=== PATIENT | male | born 2000 | race Caucasian/White ===

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

== ENCOUNTER 2023-04-11 15:47 | Inpatient (IN) | payer OTHER, SELFPAY ==
[2023-04-11 15:58] VITALS: BP 163/98; PULSE 90; RESP 18; TEMP 36.4; O2SAT 96; BMI 19.0
[2023-04-11 16:36] LABS: MANUAL DIFF FLAG NO
[2023-04-11 16:38] LABS: Basophils Absolute Auto 0.1 X10*3/uL (0.0-0.2); Basophils Percent Auto 1.1 % (0-2); Eosinophils Percent Auto 0.5 % (0-4); Hematocrit 50.1 % (42.0-52.0); Hemoglobin 17.7 g/dl (14.0-18.0); Imm Gran Abs Auto 0.02 X10*3/uL (0.00-0.03); Imm Gran Pct Auto 0.3 % (0.0-0.4); Lymphocytes Absolute Auto 1.5 X10*3/uL (1.2-4.9); Lymphocytes Percent Auto 22.9 % (20-40); Mean Corpuscular HGB Conc 35.3 g/dl (31.0-36.0); Mean Corpuscular Hemoglobin 31.7 pg (27.0-33.0); Mean Corpuscular Volume 89.6 fL (80.0-98.0); Mean Platelet Volume 10.5 fL (9.4-12.4); Monocytes Absolute Auto 0.7 X10*3/uL (0.1-1.2); Monocytes Percent Auto 10.6 % (2-11); Neutrophils Absolute Auto 4.3 x10*3/uL (2.0-8.3); Neutrophils Percent Auto 64.6 % (45-73); Platelet Count 251 X10*3/uL (160-400); Red Blood Count 5.59 X10*6/uL (4.60-5.80); Red Cell Distribution Width 11.9 % (11.0-16.0); White Blood Count 6.6 X10*3/uL (4.8-10.8)
[2023-04-11 16:39] LABS: Appearance Urine Cloudy; Color Urine Dark Yellow; Glucose Urine UA Negative (Negative); Leukocyte Esterase Urine Trace (Negative); Nitrite Urine Negative (Negative); PH 6.5 (5.0-9.0); Specific Gravity - Urine >= 1.030 (1.005-1.025); UMIC TRIGGER UACC YES; Urine Blood Negative (Negative); Urine Ketones >=160 mg/dL (Negative); Urine Protein 100 (2+) mg/dL (Neg-Trace)
[2023-04-11 16:45] LABS: Amphetamine Screen Urine Not Detected (Not Detect); Barbiturates, Urine Not Detected (Not Detect); Benzodiazepines Screen Urine Not Detected (Not Detect); Cannabinoid Screen Urine POSITIVE (Not Detect); Cocaine Screen Urine Not Detected (Not Detect); Fentanyl, urine Not Detected (Not Detect); Opiate Screen Urine Not Detected (Not Detect); Phencyclidine Screen Urine Not Detected (Not Detect)
--- NOTE | 2023-04-11 16:47 | ED.GENADULT ---
HPI - General Adult General Chief complaint: Psychiatric Symptoms Stated complaint: SECT. 12 Time Seen by Provider: 04/11/23 16:07 Source: patient, RN notes reviewed and old records reviewed Mode of arrival: EMS Limitations: no limitations History of Present Illness HPI narrative: 23-year-old male presents for evaluation paranoid behavior. Patient was due to be section [address] Apparently he was acting strange they with paranoid behavior and yarsanism preoccupation which is atypical for him He was therefore placed on a Section 12 instead and brought to the ER He reports that several years ago he was taking medications for either bipolar disorder or schizoaffective disorder but he does not know which He states that he has not been on these medications for least a year He has no somatic complaints at this time Related Data Home Medications Medication Instructions Recorded Confirmed No Known Home Meds 04/11/23 04/11/23 Allergies Allergy/AdvReac Type Severity Reaction Status Date / Time Pork/Porcine Containing AdvReac Nausea Verified 04/11/23 17:52 Products Review of Systems Constitutional: Constitutional: Denies chills and Denies fever(s) Eyes: Eyes: Denies blurry vision Cardiovascular: Cardiovascular: Denies chest pain and Denies dyspnea Respiratory: Respiratory: Denies cough and Denies dyspnea Gastrointestinal: Gastrointestinal: Denies abdominal pain, Denies nausea and Denies vomiting Musculoskeletal: Musculoskeletal: Denies back pain Psychiatric: Psychiatric: Reports paranoia, Denies homicidal ideation and Denies suicidal ideation Comments: Episcopal preoccupation PMFSH Past Medical History Medical History No known health problems Social History Social History Advance Directives: No Advance Directives Information Provided: No Healthcare Proxy: No Guardian: No Physical Exam ED Vital Signs: Vital Signs - 24 hr 04/11/23 15:58 04/11/23 17:07 Temperature 97.6 F Pulse Rate 90 72 Respiratory Rate 18 16 Blood Pressure 163/98 H 124/86 Pulse Oximetry 96 97 Oxygen Delivery Method Room Air Room Air BMI result Body Mass Index 19.0 Const General: healthy appearing, comfortable, no acute distress, alert and awake Nutritional Appearance: well nourished Orientation/consciousness: patient oriented x3 HENMT Head: Yes normocephalic and Yes atraumatic Throat: Yes posterior oropharynx normal Eyes Eyelids: Yes eyelids normal Conjunctivae: conjunctivae normal Sclerae: sclerae normal Corneas: corneas normal Pupils: Equal, round and reactive pupils present EOM: EOMs intact bilaterally Neck Neck: Yes full ROM Resp Effort & Inspection: normal respiratory effort, able to speak in complete sentences and not labored GI Inspection: No distended Palpation (GI): Soft to palpation, not firm, nontender, no guarding and not rigid Skin General skin exam: elasticity normal Neuro General: patient oriented x3 Cranial nerves: Yes Equal, round and reactive pupils present and Yes Bilaterally intact EOM present Cognition (Neuro): normal cognition Extrem Other: Moving all extremities well without any obvious deformities Psych Appearance: grossly normal Mental Status: mental status grossly normal Speech and movement: Slowed movement present (Neuro) Affect: Blunted affect present Attitude: cooperative Thought process: Normal thought process present Insight: Fair insight present (Psych) Course Reevaluation(s) Reevaluation #1: Patient's workup reviewed, he is medically cleared for care team evaluation Time: 17:04 Reevaluation #2: Patient will be a bed search for inpatient psychiatric care Time: 20:13 Medical Decision Making Medical Decision Making [facility] Narrative: 23-year-old male presents for evaluation of paranoid delusions while at the local courts. He was Section 12 due to this. Will require a care team evaluation after medical clearance. He has no somatic complaints. Basic labs and UA are pending. It sounds baseline history the patient has untreated psychiatric illness. Differential Diagnosis Differential Diagnoses: The differential diagnosis associated with the presentation includes Schizophrenia Medication noncompliance Bipolar disorder Paranoia Delusion Lab Data [facility] Lab Attestation statement: I reviewed the patient's lab results. No leukocytosis or anemia. Normal platelet count. Patient's sodium is just above normal at 146, this can be treated by drinking water. No other intervention necessary. No other electrolyte abnormalities 04/11/23 16:31 04/11/23 16:31 Labs: Lab Results 04/11/23 Range/Units 16:31 WBC 6.6 (4.8-10.8) X10*3/uL RBC 5.59 (4.60-5.80) X10*6/uL Hgb 17.7 (14.0-18.0) g/dl Hct 50.1 (42.0-52.0) % MCV 89.6 (80.0-98.0) fL MCH 31.7 (27.0-33.0) pg MCHC 35.3 (31.0-36.0) g/dl RDW 11.9 (11.0-16.0) % Plt Count 251 (160-400) X10*3/uL MPV 10.5 (9.4-12.4) fL Immature Gran % (Auto) 0.3 (0.0-0.4) % Neut % (Auto) 64.6 (45-73) % Lymph % (Auto) 22.9 (20-40) % [place] % (Auto) 10.6 (2-11) % Eos % (Auto) 0.5 (0-4) % Baso % (Auto) 1.1 (0-2) % Lymph # (Auto) 1.5 (1.2-4.9) X10*3/uL [place] # (Auto) 0.7 (0.1-1.2) X10*3/uL Eos # (Auto) 0.0 (0.0-0.4) X10*3/uL Baso # (Auto) 0.1 (0.0-0.2) X10*3/uL Abs Immat Gran (auto) 0.02 (0.00-0.03) X10*3/uL Absolute Neuts (auto) 4.3 (2.0-8.3) x10*3/uL Absolute Nucleated RBC 0.000 (0.0-0.012) X10*3/uL Nucleated RBC % (auto) 0.0 (0.0-0.2) /100WBC Sodium 146 H (135-145) mmol/L Potassium 3.7 (3.3-5.1) mmol/L Chloride 104 (96-108) mmol/L Carbon Dioxide 28 (22-29) mmol/L Anion Gap 18 (12-20) BUN 9 (9-16) mg/dL Creatinine 0.78 (0.5-1.4) mg/dL Estim Creat Clear Calc 119.1 Estimated GFR > 60 Random Glucose 110 (60-115) mg/dL Calcium 10.5 H (8.4-10.2) mg/dL Total Bilirubin 0.9 (0.0-1.0) mg/dL AST 37 (5-37) U/L ALT 18 (0-40) U/L Alkaline Phosphatase 92 (39-117) U/L Total Protein 8.7 H (6.5-8.0) g/dL Albumin 5.2 H (3.5-5.0) g/dL Urine Color Dark Yellow Urine Appearance Cloudy Urine pH 6.5 (5.0-9.0) Ur Specific [place] >= 1.030 H (1.005-1.025) Urine Protein 100 (2+) H (Neg-Trace) mg/dL Urine Glucose (UA) Negative (Negative) mg/dL Urine Ketones >=160 (Negative) mg/dL Urine Blood Negative (Negative) Urine Nitrite Negative (Negative) Ur Leukocyte Esterase Trace H (Negative) Urine RBC 3-5 H (0-2) /HPF Urine WBC 0-5 (0-5) /HPF Ur Squamous Epith Cells 0-2 (0-2) /HPF Urine Bacteria None Seen (None Seen) Hyaline Casts 0-2 (0-2) /LPF Salicylates < 5.0 L (15-30) mg/dL Urine Opiates Screen Not Detected (Not Detect) Urine Fentanyl Screen Not Detected (Not Detect) Acetaminophen < 17 (<30) mcg/mL Ur Barbiturates Screen Not Detected (Not Detect) Ur Phencyclidine Scrn Not Detected (Not Detect) Ur Amphetamines Screen Not Detected (Not Detect) U Benzodiazepines Scrn Not Detected (Not Detect) Urine Cocaine Screen Not Detected (Not Detect) U Marijuana (THC) Screen POSITIVE H (Not Detect) Ethyl Alcohol < 10 mg/dL Discharge Plan Discharge Clinical Impression: Acute paranoia Patient Disposition: Still a Patient Prescriptions: No Action No Known Home Meds Interventions: Diablo-Suicide Risk Severity Scale Last Done: 04/11/23 18:39
[2023-04-11 16:52] LABS: Bacteria Urine None Seen (None Seen); Hyaline Casts Urine 0-2 /LPF (0-2); Squamous Epithelial Cell Urine 0-2 /HPF (0-2); WBC Urine 0-5 /HPF (0-5)
[2023-04-11 16:54] LABS: Alanine Aminotransferase 18 U/L (0-40); Albumin Level 5.2 g/dL (3.5-5.0); Alkaline Phosphatase 92 U/L (39-117); Anion Gap 18 (12-20); Aspartate Amino Transferase 37 U/L (5-37); Bilirubin Total 0.9 mg/dL (0.0-1.0); Blood Urea Nitrogen 9 mg/dL (9-16); Calcium 10.5 mg/dL (8.4-10.2); Carbon Dioxide 28 mmol/L (22-29); Chloride 104 mmol/L (96-108); Creatinine Clr Calc Pharmacy 119.1; Estimated Glomerular Filt Rate > 60; Ethanol < 10 mg/dL; Glucose Random 110 mg/dL (60-115); Potassium 3.7 mmol/L (3.3-5.1); Sodium 146 mmol/L (135-145); Total Protein 8.7 g/dL (6.5-8.0)
[2023-04-11 16:56] LABS: Acetaminophen LAB < 17 mcg/mL (<30); Salicylate < 5.0 mg/dL (15-30)
[2023-04-11 17:07] VITALS: BP 124/86; PULSE 72; RESP 16; O2SAT 97
--- OUTSIDE RECORDS SUMMARY | 2023-04-11 17:38 | XMS_ITS | Continuity of Care Document ---
Author Name Unknown Organization [facility] ter Address [address] [place] [id number] Care Team Providers Care Ppap Coordinator Name Role Phone Patty Serrano Primary Care Physician Encounter [facility] [place] Date(s): 07/25/19 - 07/25/[address] [id number]- [facility] Discharge Disposition: A-D/C Home Attending Physician: Bladimir Dang MD Admitting Physician: Bladimir Dang MD Referring Physician: Not on Staff, Referring MD Allergies, Adverse Reactions, Alerts Substance Reaction Severity Status NKA Active Medications albuterol 0.083% inhalation solution 3 mL, Inhalation, Every 6 hours, PRN wheezing, # 25 each, 1 Refills Start Date: 02/19/09 Stop Date: 03/21/09 Status: Ordered albuterol 90 mcg/inh inhalation aerosol with adapter 2 puffs, Inhalation, Every 4 hours, # 1 bottle, 1 Refills Start Date: 02/19/09 Stop Date: 03/21/09 Status: Ordered Orapred sodium phosphate 15 mg/5 ml oral liquid 10 mL = 30 mg, By Mouth, Daily, # 40 mL, 0 Refills Start Date: 02/19/09 Stop Date: 02/23/09 Status: Ordered Tamiflu 12 mg/ml oral powder for reconstitution 5 mL = 60 mg, By Mouth, Daily, # 20 mL, 0 Refills Start Date: 02/19/09 Stop Date: 02/23/09 Status: Ordered Vital Signs Most recent to oldest [Reference Range]: 1 2 Height 175 cm (07/25/19 8:58 PM) 175 cm (07/25/19 7:22 PM) Weight 68 kg (07/25/19 8:58 PM) 68 kg (07/25/19 7:22 PM) Oxygen Saturation [94-100 %] 100 % (07/25/19 8:58 PM) 99 % (07/25/19 7:22 PM) Pulse Rate [55-90 bpm] 96 bpm *H* (07/25/19 8:58 PM) 72 bpm (07/25/19 7:22 PM) Body Mass Index [18.5-24.99] 22.2 (07/25/19 8:58 PM) Blood Pressure [71-110/30-71 mm Hg] 138/ 89mm Hg *H* (07/25/19 8:58 PM) 129/70mm Hg *H* (07/25/19 7:22 PM) Respiratory Rate [16-30 br/min] 20 br/mi n (07/25/19 8:58 PM) 18 br/min (07/25/19 7:22 PM) Temperature [96.8-100.4 DegF] 98.4 DegF (07/25/19 7:22 PM) Mode of Delivery (Oxygen) Room air (07/25/19 8:58 PM) Room air (07/25/19 7:22 PM) Blood pressure sites Arm, left (07/25/19 8:58 PM) Arm, left (07/25/19 7:22 PM) Temperature Route Oral (07/25/19 7:22 PM) Dry Weight 68 kg (07/25/19 8:58 PM) 68 kg (07/25/19 7:22 PM)
--- NOTE | 2023-04-11 18:40 | PC.NURSE ---
Satya was BIBA after mother took him to court seeking a section 35. Court determined he was paranoid and religiously preoccupied and sent him to the hospital on a section 12. Satya was calm and cooperative and changed over without incident. Very guarded affect and he seems preoccupied when talking to staff. Appetite fair. No complaints of pain or discomfort at this time. UTOX positive for Marijuana. Satya denies alcohol use. Staff will continue to monitor.
[2023-04-12 06:36] VITALS: BP 125/73; PULSE 92; RESP 16; O2SAT 99
[2023-04-12 08:06] LABS: COVID-19 Test Negative (Negative); IDNOW Serial# BCCEAD1C
[2023-04-12 09:37] VITALS: BP 138/94; PULSE 127; RESP 16; TEMP 36.9; O2SAT 99
--- NOTE | 2023-04-12 11:41 | PHA.MEDREC ---
Pharmacy Consult ? Medication Reconciliation Pharmacy has completed the medication reconciliation. No known meds per nursing
[2023-04-12 17:19] VITALS: BP 121/84; PULSE 112; RESP 18; O2SAT 100
--- NOTE | 2023-04-12 17:40 | PC.NURSE ---
mother called checking on patient status, asked if client was eating, how hes doing, t/w informed mother of plan for client to head to inpatient unit today
[2023-04-12] MEDS: LORazepam 0.5 MG TABLET PO (18:26)
[2023-04-12 21:10] VITALS: BP 125/83; PULSE 96; RESP 18; TEMP 37; O2SAT 97
[2023-04-12] MEDS: traZODone HCL 50 MG TABLET PO (22:33)
[2023-04-12] MEDS: OLANZapine 5 MG TABLET PO (22:33)
--- NOTE | 2023-04-13 01:44 | PC.ADMIT ---
Satya is a 23yo, single. Armenian speaking male admitted to the unit from ED, [facility] [place] for treatment of SI and unspecified psychosis. Patient's mom filed for a section 35 due to his chronic substance use which she stated includes Xanax, Ecstasy, cough medicine, mushrooms, and Almaz. While in lock up, Pt presented as paranoid and religiously pre-occupied so he was placed on section 12 and transported to [facility], ED. Pt is alert and oriented X4, isolative and withdrawn to his room. He is calm and cooperative with staff, mood is depressed, affect is anxious. He denies SI/HI/AVH, admitted smoking marijuana often, states he drinks alcohol and smokes cigar occasionally. Denies any medical issues, reported poor sleep at night and was given PRN Trazodone 50mg for insomnia at bed time. Meds and meals compliant. Skin assessment done and was satisfactory. Safety and treatment plan initiated. Pt reported safe on the unit.
[2023-04-13 08:47] VITALS: BP 114/67; PULSE 65; RESP 18; TEMP 36.2; O2SAT 95
--- NOTE | 2023-04-13 13:51 | P.HPPS_ITS ---
HPI Date of Service: 04/13/23 Chief Complaint: Psychosis Sources of Information: patient interviewed, chart reviewed and crisis/core team assessment reviewed HPI Subjective Notes: Chau Warning and Conditional Voluntary Narrative: The patient is a 23-year-old descent male, single, referred from the court the emergency room for psychotic symptoms. According to the crisis assessment his mother filed a Section 35 and he was going to be assessed for treatment. While he was in court he was grossly disorganized, responding to internal stimuli, religiously preoccupied. According to the mother's report the patient abuses ecstasy, cannabis, mostly, mushrooms and other drugs. He was assessed on the emergency room, medically cleared and transferred to the unit for psychiatric stabilization. In the unit, the patient state on his bed most of the time, sleeping. I tried to interview but the patient refused to be assessed he looks tired and internally preoccupied. He adamantly denies having any psychotic symptoms. And he was in uncooperative with the assessment. I explained him that I am going to start him on a low dose of Zyprexa to try he psychosis and we will reassess tomorrow. We will try to gather collateral information, he signed conditional voluntary and he is willing to follow treatment. Past Psychiatric History: Unknown the patient refused to elaborate Medical Evaluation Reviewed: Yes [facility] Medical History No known health problems Family History: Denies Social History: His mother filed for a Section 35 due to substance abuse. He refused elaborate or provide information Substance History: According to the crisis assessment the patient abuse of cannabis, Almaz, Xanax, hallucinations like mushrooms Trauma History: Unknown Diagnostics Vital Signs (24Hr): Vital Signs - 24 hr 04/12/23 17:19 04/12/23 21:10 04/13/23 08:47 Temperature 98.6 F 97.2 F Pulse Rate 112 H 96 65 Respiratory Rate 18 18 18 Blood Pressure 121/84 125/83 114/67 Pulse Oximetry 100 97 95 Oxygen Delivery Method Room Air Room Air Room Air BMI result Body Mass Index 19.0 Labs 04/11/23 16:31 04/11/23 16:31 Labs: Laboratory Results - last 48 hr 04/11/23 04/12/23 16:31 07:50 WBC 6.6 RBC 5.59 Hgb 17.7 Hct 50.1 MCV 89.6 MCH 31.7 MCHC 35.3 RDW 11.9 Plt Count 251 MPV 10.5 Immature Gran % (Auto) 0.3 Neut % (Auto) 64.6 Lymph % (Auto) 22.9 [place]pson % (Auto) 10.6 Eos % (Auto) 0.5 Baso % (Auto) 1.1 Lymph # (Auto) 1.5 Sampson # (Auto) 0.7 Eos # (Auto) 0.0 Baso # (Auto) 0.1 Abs Immat Gran (auto) 0.02 Absolute Neuts (auto) 4.3 Absolute Nucleated RBC 0.000 Nucleated RBC % (auto) 0.0 Sodium 146 H Potassium 3.7 Chloride 104 Carbon Dioxide 28 Anion Gap 18 BUN 9 Creatinine 0.78 Estim Creat Clear Calc 119.1 Estimated GFR > 60 Random Glucose 110 Calcium 10.5 H Total Bilirubin 0.9 AST 37 ALT 18 Alkaline Phosphatase 92 Total Protein 8.7 H Albumin 5.2 H Urine Color Dark Yellow Urine Appearance Cloudy Urine pH 6.5 Ur Specific [place] >= 1.030 H Urine Protein 100 (2+) H Urine Glucose (UA) Negative Urine Ketones >=160 Urine Blood Negative Urine Nitrite Negative Ur Leukocyte Esterase Trace H Urine RBC 3-5 H Urine WBC 0-5 Ur Squamous Epith Cells 0-2 Urine Bacteria None Seen Hyaline Casts 0-2 Salicylates < 5.0 L Urine Opiates Screen Not Detected Urine Fentanyl Screen Not Detected Acetaminophen < 17 Ur Barbiturates Screen Not Detected Ur Phencyclidine Scrn Not Detected Ur Amphetamines Screen Not Detected U Benzodiazepines Scrn Not Detected Urine Cocaine Screen Not Detected U Marijuana (THC) Screen POSITIVE H Ethyl Alcohol < 10 COVID-19 ([facility]) Negative COVID-19 Clin Com See Note Meds/Allergies Meds Home Medications Medication Instructions Recorded Confirmed Type No Known Home Meds 04/11/23 04/11/23 History Allergies Allergies Allergy/AdvReac Type Severity Reaction Status Date / Time Pork/Porcine Containing AdvReac Nausea Verified 04/11/23 17:52 Products Mental Status Exam Mental Status Exam Patient Appearance: Appropriate Patient Orientation: Person Level of Consciousness: Awake and Sedated Patient Behavior: Guarded and Passive Mood Description: Withdrawn Affect Description: Blunted Patient Cognition Impaired: No Ability to Follow Directions: Fair Speech Pattern: Impoverished and Long Pauses Hallucinations: Auditory Delusions: Paranoid Ideation and Ideas of Reference Thought Process: Illogical and Distracted Thought Content: positive for [place] and positive for Poverty of Content Judgement: Poor Assessment & Plan Assessment & Plan (1) Acute paranoia: Status: Acute Code(s): F22 - Delusional disorders Plan The patient is a young Latvian descent male with a past history of polysubstance dependence who was Section 35 by his mother and in court he was grossly psychotic responding to internal stimuli a religiously preoccupied. He was transferred to the emergency room for assessment due to acute psychosis. On intake the patient was poorly compliant but he looked psychotic. Plan 1. Gather collateral information. 2. Start Zyprexa 5 mg p.o. q.h.s. to target psychosis. 3. 15 minutes checks. 4. Continue with medical workout. 5. Reassessment with results. Patient educated on: diagnosis Informed Consent: further education needed Reason for continued inpatient stay Substantial Risk for: inability to function, rapid decompensation and med/psych decompensation Statement Statement: I have reviewed the history and physical and performed a pertinent examination on my patient. No changes have occurred unless specified. If the History and Physical was not performed prior to admission, the Hospitalist's service will be consulted for completing the admission physical. Time Spent With Patient Time: Total time managing care of this patient today __45__ minutes.
[2023-04-13 19:50] VITALS: BP 131/77; PULSE 72; RESP 16; TEMP 36.7; O2SAT 99
[2023-04-13] MEDS: traZODone HCL 50 MG TABLET PO (21:16)
[2023-04-13] MEDS: OLANZapine 5 MG TABLET PO (21:16)
[2023-04-14 09:02] VITALS: BP 119/75; PULSE 81; RESP 18; TEMP 36.5; O2SAT 99
--- NOTE | 2023-04-14 13:02 | P.PNPSI_ITS ---
Subjective Subjective Date of Service: 04/14/23 Reason For Visit: Psychosis Subjective Notes: Conditional Voluntary Interim History: The nursing staff reported the patient ate breakfast he was mostly in his bed and he went out in the afternoon. He has been compliant with medications he slept well. He has been polite with no disturbance in his behavior. On interview the patient denies new symptoms he states that he is doing well but he feels tired. He denies psychotic symptoms at this point Mental Status Exam Mental Status Exam Patient Appearance: Appropriate Patient Orientation: Person and Situation Level of Consciousness: Awake Patient Behavior: Guarded and Passive Mood Description: Calm Affect Description: Blunted Patient Cognition Impaired: No Ability to Follow Directions: Good Speech Pattern: Clear Hallucinations: None Delusions: Ideas of Reference Thought Process: Distracted and Slowed Thinking Thought Content: positive for [employer] and positive for Poverty of Content Judgement: Poor Diagnostics Vital Signs (24Hr): Vital Signs - 24 hr 04/13/23 19:50 04/14/23 09:02 Temperature 98.1 F 97.7 F Pulse Rate 72 81 Respiratory Rate 16 18 Blood Pressure 131/77 119/75 Pulse Oximetry 99 99 Oxygen Delivery Method Room Air Room Air BMI result Body Mass Index 19.0 Labs 04/11/23 16:31 04/11/23 16:31 Medications Medications Current Medications Acetaminophen (Acetaminophen 325 Mg Tablet) 650 mg PO Q6H PRN PRN Reason: Headache/Pain Mild Scale (1-3) Al Hydroxide/Mg Hydroxide (Magnesium Hydrox/Alum Hydrox 30 Ml Oral.Susp) 30 ml PO Q6H PRN PRN Reason: Heartburn/Nausea Hydroxyzine HCl (Hydroxyzine Hcl 25 Mg Tablet) 25 mg PO Q6H PRN PRN Reason: Anxiety Magnesium Hydroxide (Milk Of Magnesia 30 Ml Oral.Susp) 30 ml PO DAILY PRN PRN Reason: Constipation Nicotine Polacrilex (Nicotine Polacrilex 2 Mg Gum) 2 mg BUCCAL Q2H PRN PRN Reason: Nicotine Cravings Olanzapine (Olanzapine 5 Mg Tablet) 5 mg PO BEDTIME MARINA Last Admin: 04/13/23 21:16 Dose: 5 mg Trazodone HCl (Trazodone Hcl 50 Mg Tablet) 50 mg PO BEDTIME MRX1 PRN PRN Reason: Insomnia Last Admin: 04/13/23 21:16 Dose: 50 mg Allergies Allergies Allergy/AdvReac Type Severity Reaction Status Date / Time Pork/Porcine Containing AdvReac Nausea Verified 04/11/23 17:52 Products Assessment & Plan Assessment & Plan (1) Acute paranoia: Status: Acute Code(s): F22 - Delusional disorders Plan The patient is a young Dive[place] descent male with a past history of polysubstance dependence who was Section 35 by his mother and in court he was grossly psychotic responding to internal stimuli a religiously preoccupied. He was transferred to the emergency room for assessment due to acute psychosis. On intake the patient was poorly compliant but he looked psychotic. Plan 1. Gather collateral information. 2. Start Zyprexa 5 mg p.o. q.h.s. to target psychosis. 3. 15 minutes checks. 4. Continue with medical workout. 5. Reassessment with results. Reason for continued inpatient stay Substantial Risk for: inability to function, rapid decompensation and med/psych decompensation Time Spent With Patient Time: Total time managing care of this patient today __20__ minutes.
--- NOTE | 2023-04-14 18:10 | PC.NURSE ---
Pt signed a 3 day notice on 04/14/23, up on 04/17/23.
[2023-04-14 20:00] VITALS: BP 115/59; PULSE 98; RESP 18; TEMP 36.8; O2SAT 99
[2023-04-14] MEDS: OLANZapine 5 MG TABLET PO (20:37)
[2023-04-14] MEDS: traZODone HCL 50 MG TABLET PO (20:37)
[2023-04-14] MEDS: Nicotine Polacrilex 2 MG GUM BUCCAL (20:39)
[2023-04-15 08:23] VITALS: BP 106/57; PULSE 90; RESP 16; TEMP 36.7; O2SAT 97
--- NOTE | 2023-04-15 15:24 | HO.PSYCHPN ---
Subjective Subjective Date of Service: 04/15/23 Reason For Visit: Psychosis Interim History: calm, cooperative. no signs of psychosis. fine with current mgmt. planning to return to his grandmother's home after discharge. per staff, paranoid, delusional at admission. poor sleep. mother filed for section 35. Mental Status Exam Mental Status Exam Narrative: adequately dressed, disheveled. cooperative, no PMA/PMR. speech nml rate, amount, loudness, latency. thoughts linear and logical. affect constricted, normo-intense, non-labile. mood good. relaxed. denies SI/HI/AVH. Diagnostics Vital Signs (24Hr): Vital Signs - 24 hr 04/14/23 20:00 04/15/23 08:23 Temperature 98.2 F 98.0 F Pulse Rate 98 90 Respiratory Rate 18 16 Blood Pressure 115/59 L 106/57 L Pulse Oximetry 99 97 Oxygen Delivery Method Room Air Room Air BMI result Body Mass Index 19.0 Labs 04/11/23 16:31 04/11/23 16:31 Medications Medications Current Medications Acetaminophen (Acetaminophen 325 Mg Tablet) 650 mg PO Q6H PRN PRN Reason: Headache/Pain Mild Scale (1-3) Al Hydroxide/Mg Hydroxide (Magnesium Hydrox/Alum Hydrox 30 Ml Oral.Susp) 30 ml PO Q6H PRN PRN Reason: Heartburn/Nausea Hydroxyzine HCl (Hydroxyzine Hcl 25 Mg Tablet) 25 mg PO Q6H PRN PRN Reason: Anxiety Magnesium Hydroxide (Milk Of Magnesia 30 Ml Oral.Susp) 30 ml PO DAILY PRN PRN Reason: Constipation Nicotine Polacrilex (Nicotine Polacrilex 2 Mg Gum) 2 mg BUCCAL Q2H PRN PRN Reason: Nicotine Cravings Last Admin: 04/14/23 20:39 Dose: 2 mg Olanzapine (Olanzapine 5 Mg Tablet) 5 mg PO BEDTIME MARINA Last Admin: 04/14/23 20:37 Dose: 5 mg Trazodone HCl (Trazodone Hcl 50 Mg Tablet) 50 mg PO BEDTIME MRX1 PRN PRN Reason: Insomnia Last Admin: 04/14/23 20:37 Dose: 50 mg Allergies Allergies Allergy/AdvReac Type Severity Reaction Status Date / Time Pork/Porcine Containing AdvReac Nausea Verified 04/11/23 17:52 Products Assessment & Plan Assessment & Plan (1) Acute paranoia: Status: Acute Code(s): F22 - Delusional disorders Plan The patient is a young Bulgarian descent male with a past history of polysubstance dependence who was Section 35 by his mother and in court he was grossly psychotic responding to internal stimuli a religiously preoccupied. He was transferred to the emergency room for assessment due to acute psychosis. On intake the patient was poorly compliant but he looked psychotic. Plan 1. Gather collateral information. 2. Start Zyprexa 5 mg p.o. q.h.s. to target psychosis. 3. 15 minutes checks. 4. Continue with medical workout. 5. Reassessment with results. 04/15: no signs of psychosis. nml MSE. continue current mgmt. Reason for continued inpatient stay Substantial Risk for: inability to function and rapid decompensation Time Spent With Patient Time: Total time managing care of this patient today __25__ minutes.
[2023-04-15 18:00] VITALS: BP 135/67; PULSE 87; RESP 15; TEMP 36.2; O2SAT 97
[2023-04-15] MEDS: Nicotine Polacrilex 2 MG GUM BUCCAL (19:03)
[2023-04-15] MEDS: OLANZapine 5 MG TABLET PO (21:17)
[2023-04-15] MEDS: traZODone HCL 50 MG TABLET PO (21:17)
[2023-04-16 06:00] VITALS: BP 117/73; PULSE 81; TEMP 36.1; O2SAT 100
--- NOTE | 2023-04-16 16:36 | HO.PSYCHPN ---
Subjective Subjective Date of Service: 04/16/23 Reason For Visit: Psychosis Subjective Notes: 3 Day Interim History: Reviewed with . Patient presents guarded and brief during 1:1. Pt reports feeling good today; he reports sleeping well. Pt stated, I plan on leaving here and probably seeing a therapist. I want to find a job . denies SI/HI/VH/AH. Medication Compliance: Yes Side effects from medications: No Attending Groups: No Review of Systems Constitutional: Reports as per HPI Eyes: Reports as per HPI Reports as per HPI Cardiovascular: Reports as per HPI Respiratory: Reports as per HPI Gastrointestinal: Reports as per HPI Genitourinary: Reports as per HPI Musculoskeletal: Reports as per HPI Skin/Breast: Reports as per HPI Reports as per HPI Psychiatric: Reports as per HPI Endocrine: Reports as per HPI Hematologic/Lymphatic: Reports as per HPI Allergic/Immunologic: Reports as per HPI Mental Status Exam Mental Status Exam Narrative: Pt is alert and oriented; behavior is guarded; dressed in casual attire; mood is described as good ; eye contact appropriate; Speech is normal rate, volume and prosody and not pressured; no psychomotor agitation/retardation present; thought process is organized and goal directed; Thought content is on discharge; otherwise pertinent to relevant topics and without any delusional content, paranoid ideations or grandiosity; denies SI/HI. There is no evidence of perceptual disturbance. Diagnostics Vital Signs (24Hr): Vital Signs - 24 hr 04/15/23 18:00 04/16/23 06:00 Temperature 97.2 F 97.0 F Pulse Rate 87 81 Respiratory Rate 15 Blood Pressure 135/67 117/73 Pulse Oximetry 97 100 Oxygen Delivery Method Room Air Room Air BMI result Body Mass Index 19.0 Labs 04/11/23 16:31 04/11/23 16:31 Medications Medications Current Medications Acetaminophen (Acetaminophen 325 Mg Tablet) 650 mg PO Q6H PRN PRN Reason: Headache/Pain Mild Scale (1-3) Al Hydroxide/Mg Hydroxide (Magnesium Hydrox/Alum Hydrox 30 Ml Oral.Susp) 30 ml PO Q6H PRN PRN Reason: Heartburn/Nausea Hydroxyzine HCl (Hydroxyzine Hcl 25 Mg Tablet) 25 mg PO Q6H PRN PRN Reason: Anxiety Magnesium Hydroxide (Milk Of Magnesia 30 Ml Oral.Susp) 30 ml PO DAILY PRN PRN Reason: Constipation Nicotine Polacrilex (Nicotine Polacrilex 2 Mg Gum) 2 mg BUCCAL Q2H PRN PRN Reason: Nicotine Cravings Last Admin: 04/15/23 19:03 Dose: 2 mg Olanzapine (Olanzapine 5 Mg Tablet) 5 mg PO BEDTIME MARINA Last Admin: 04/15/23 21:17 Dose: 5 mg Trazodone HCl (Trazodone Hcl 50 Mg Tablet) 50 mg PO BEDTIME MRX1 PRN PRN Reason: Insomnia Last Admin: 04/15/23 21:17 Dose: 50 mg Allergies Allergies Allergy/AdvReac Type Severity Reaction Status Date / Time Pork/Porcine Containing AdvReac Nausea Verified 04/11/23 17:52 Products Assessment & Plan Assessment & Plan (1) Acute paranoia: Status: Acute Code(s): F22 - Delusional disorders Plan The patient is a young [place] descent male with a past history of polysubstance dependence who was Section 35 by his mother and in court he was grossly psychotic responding to internal stimuli a religiously preoccupied. He was transferred to the emergency room for assessment due to acute psychosis. On intake the patient was poorly compliant but he looked psychotic. Plan 1. Gather collateral information. 2. Start Zyprexa 5 mg p.o. q.h.s. to target psychosis. 3. 15 minutes checks. 4. Continue with medical workout. 5. Reassessment with results. 04/15: no signs of psychosis. nml MSE. continue current mgmt. 04/16: continue current tx plan. Patient educated on: diagnosis and medication risk/benefits Informed Consent: understands Reason for continued inpatient stay Substantial Risk for: med/psych decompensation Time Spent With Patient Time: Total time managing care of this patient today _30___ minutes.
[2023-04-16 19:50] VITALS: BP 133/60; PULSE 105; RESP 16; TEMP 37.1; O2SAT 98
[2023-04-16] MEDS: traZODone HCL 50 MG TABLET PO (20:33)
[2023-04-16] MEDS: OLANZapine 5 MG TABLET PO (20:33)
[2023-04-17 06:00] VITALS: BP 106/54; PULSE 74; TEMP 36.6; O2SAT 98
--- NOTE | 2023-04-17 11:08 | PM.PSYDC ---
DS: Providers Provider Date of Service: 04/17/23 Date of admission: 04/12/23 20:02 Primary care physician: Unknown Physician DS: Diagnosis Discharge Diagnosis (1) Acute paranoia: Status: Acute DS: Medications Discharge Medications Home Medications: Previous Rx's Medication Instructions Recorded olanzapine 5 mg tablet 5 mg PO BEDTIME 30 days #30 tabs 04/17/23 trazodone 50 mg tablet 50 mg PO BEDTIME PRN Insomnia 30 04/17/23 days #30 tabs Mental Status Exam Mental Status Exam Narrative: Pt is alert and oriented; behavior is guarded; dressed in casual attire; mood is described as excited and sleepy ; eye contact appropriate; Speech is normal rate, volume and prosody and not pressured; no psychomotor agitation/retardation present; thought process is organized and goal directed; Thought content is on discharge; otherwise pertinent to relevant topics and without any delusional content, paranoid ideations or grandiosity; denies SI/HI/AVH. There is no evidence of perceptual disturbance. Data Data Completed and Pending Completed studies during hospitalization [Text1]: 04/11/23 04/12/23 16:31 07:50 WBC 6.6 RBC 5.59 Hgb 17.7 Hct 50.1 MCV 89.6 MCH 31.7 MCHC 35.3 RDW 11.9 Plt Count 251 MPV 10.5 Immature Gran % (Auto) 0.3 Neut % (Auto) 64.6 Lymph % (Auto) 22.9 [place] % (Auto) 10.6 Eos % (Auto) 0.5 Baso % (Auto) 1.1 Lymph # (Auto) 1.5 [place] # (Auto) 0.7 Eos # (Auto) 0.0 Baso # (Auto) 0.1 Abs Immat Gran (auto) 0.02 Absolute Neuts (auto) 4.3 Absolute Nucleated RBC 0.000 Nucleated RBC % (auto) 0.0 Sodium 146 H Potassium 3.7 Chloride 104 Carbon Dioxide 28 Anion Gap 18 BUN 9 Creatinine 0.78 Estim Creat Clear Calc 119.1 Estimated GFR > 60 Random Glucose 110 Calcium 10.5 H Total Bilirubin 0.9 AST 37 ALT 18 Alkaline Phosphatase 92 Total Protein 8.7 H Albumin 5.2 H Urine Color Dark Yellow Urine Appearance Cloudy Urine pH 6.5 Ur Specific [place] >= 1.030 H Urine Protein 100 (2+) H Urine Glucose (UA) Negative Urine Ketones >=160 Urine Blood Negative Urine Nitrite Negative Ur Leukocyte Esterase Trace H Urine RBC 3-5 H Urine WBC 0-5 Ur Squamous Epith Cells 0-2 Urine Bacteria None Seen Hyaline Casts 0-2 Salicylates < 5.0 L Urine Opiates Screen Not Detected Urine Fentanyl Screen Not Detected Acetaminophen < 17 Ur Barbiturates Screen Not Detected Ur Phencyclidine Scrn Not Detected Ur Amphetamines Screen Not Detected U Benzodiazepines Scrn Not Detected Urine Cocaine Screen Not Detected U Marijuana (THC) Screen POSITIVE H Ethyl Alcohol < 10 COVID-19 ([facility]) Negative COVID-19 Clin Com See Note DS: Summary Hospital Course Hospital Course: per 04/13 admission note: The patient is a 23-year-old descent male, single, referred from the court the emergency room for psychotic symptoms. According to the crisis assessment his mother filed a Section 35 and he was going to be assessed for treatment. While he was in court he was grossly disorganized, responding to internal stimuli, religiously preoccupied. According to the mother's report the patient abuses ecstasy, cannabis, mostly, mushrooms and other drugs. He was assessed on the emergency room, medically cleared and transferred to the unit for psychiatric stabilization. In the unit, the patient state on his bed most of the time, sleeping. I tried to interview but the patient refused to be assessed he looks tired and internally preoccupied. He adamantly denies having any psychotic symptoms. And he was in uncooperative with the assessment. I explained him that I am going to start him on a low dose of Zyprexa to try he psychosis and we will reassess tomorrow. We will try to gather collateral information, he signed conditional voluntary and he is willing to follow treatment. Past Psychiatric History: Unknown the patient refused to elaborate Medical Evaluation Reviewed: Yes [facility] Medical History No known health problems Family History: Denies Social History: His mother filed for a Section 35 due to substance abuse. He refused elaborate or provide information Substance History: According to the crisis assessment the patient abuse of cannabis, Almaz, Xanax, hallucinations like mushrooms Trauma History: Unknown Precis: The patient is a young Occ[place] descent male with a past history of polysubstance dependence who was Section 35 by his mother and in court he was grossly psychotic responding to internal stimuli a religiously preoccupied. He was transferred to the emergency room for assessment due to acute psychosis. On intake the patient was poorly compliant but he looked psychotic. Plan 04/13-: Start Zyprexa 5 mg p.o. q.h.s. to target psychosis. 04/15: no signs of psychosis. nml MSE. continue current mgmt. 04/16: continue current tx plan. 04/17: remains clear of psychotic Sx. discharge today as 3-day notice expires and pt is not committable. meds reviewed, reconciled, prescribed. Time Spent with Patient Time attestation: Total time managing care of this patient today ____ minutes. Time spent: Greater than 30 minutes Discharge Plan Discharge Anticipated Discharge Date/Time: 04/17/23 14:00 Patient Disposition: Home, Self-Care Discharge Diagnosis: Psychotic Disorder NOS Referrals: Татьяна Nick (Therapy) [Other] - 04/23/23 2:00 pm (IN OFFICE APPOINTMENT -Please arrive fifteen minutes early to your appointment in order to fill out necessary paperwork. ) Trang Garcia (Psychiatry) [Other] - 05/21/23 10:00 am (TELEHEALTH APPOINTMENT -Psychiatric Evaluation ) Trang Garcia (Psychiatry) [Other] - 06/18/23 11:00 am (TELEHEALTH APPOINTMENT -Medication Management ) Irma Chavez MD [Physician] - 1 Week (Patient reports he has appointment on with new provider at [facility]. Did not know name of provider. Patient to follow up following discharge. ) Discharge Medications: New trazodone 50 mg Tablet 50 mg PO BEDTIME PRN (Reason: Insomnia) 30 Days Qty: 30 0RF olanzapine 5 mg Tablet 5 mg PO BEDTIME 30 Days Qty: 30 0RF Discharge Orders: Discharge Order (Routine); Ordered 04/17/23 Ordered By: Wilton Eden Diet: Advance to usual diet Activity on Discharge: As tolerated Stand Alone Forms: Patient Portal Discharge page Care Plan Goals: remain safe and stable in the outpatient treatment setting Health Concerns: none Plan of Treatment: take medications as prescribed, attend appointments as scheduled Assessment: not at imminent risk of harm to elf or others
--- NOTE | 2023-04-17 15:14 | PC.NURSE ---
Patient easily engaged. Reports mood is stable, feeling ready for discharge. Denies depression or sadness. Denies SI/HI plan or intent. Reports mild paranoia stating he thought someone was looking at him in the window at him last night. States he put his mattress on the floor. Reports he does not experience that at home. Denies A/V hallucinations at this time. Thoughts linear and organized. Planning to return to grandparents home. All belongings taken with patient. Discharge paperwork reviewed with patient, reports understanding. Reviewed medications reports understanding. Reviewed follow up appointments reports understanding. Patient reports he has follow up with PCP scheduled. States he is unsure who his PCP is because he is new, will follow up post discharge. Crisis numbers provided to patient.
== END 2023-04-17 14:17 | disposition home or self-care (01) | DRG 760 ==
LOC: HO.ED 18:57 → HO.PADLT16 04-12 20:15
PROVIDERS: Emergency Medicine Emergency Medical Services; Admitting Provider Psychiatry & Neurology Psychiatry; Emergency Provider Student in an Organized Health Care Education/Training Program; Visit Provider Psychiatry & Neurology Psychiatry
DX: F22 Delusional disorders (principal); F23 Brief psychotic disorder; Z20.822 Contact with and (suspected) exposure to COVID-19; Z79.899 Other long term (current) drug therapy
CPT/HCPCS: 36415; 80053; 80143; 80179; 80307; 81001; 85025; 87635; 99285; S9485

== ENCOUNTER → 2023-04-12 20:02 | Outpatient (BNV) | payer OTHER, SELFPAY | PROVIDERS: Admitting Provider Psychiatry & Neurology Psychiatry; Emergency Provider Student in an Organized Health Care Education/Training Program; Visit Provider Psychiatry & Neurology Psychiatry | DX: F22 Delusional disorders (principal) | CPT/HCPCS: 90792; 99231; 99232; 99239 ==

== ENCOUNTER → 2023-04-12 20:02 | Outpatient (BNV) | payer OTHER, SELFPAY | PROVIDERS: Admitting Provider Psychiatry & Neurology Psychiatry; Emergency Provider Student in an Organized Health Care Education/Training Program; Visit Provider Psychiatry & Neurology Psychiatry | DX: F22 Delusional disorders (principal) | CPT/HCPCS: 99231 ==

== ENCOUNTER 2023-04-25 21:20 | Inpatient (IN) | payer OTHER, SELFPAY ==
--- NOTE | 2023-04-25 21:39 | PC.NURSE ---
Addendum entered by Becky Jones RN 04/25/23 21:42: pt reported he has allergies, refused to tell what they are Original Note: pt refused to talk to staff unable to triage pt at this time
--- NOTE | 2023-04-25 21:41 | PC.NURSE ---
pt was able to be changed over with staff and security
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
--- NOTE | 2023-04-25 22:16 | PC.NURSE ---
pt refused labs
--- NOTE | 2023-04-25 22:20 | PC.NURSE ---
pt in shower
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
[2023-04-25 23:42] VITALS: RESP 18
[2023-04-25 23:52] VITALS: BP 124/67; PULSE 94; TEMP 36.6; O2SAT 98
[2023-04-25 23:56] VITALS: BMI 23.3
--- NOTE | 2023-04-26 01:07 | PC.NURSE ---
Addendum entered by Becky Jones RN 04/26/23 03:21: Tomi CABRERA aware Original Note: pt refused labs
--- NOTE | 2023-04-26 05:07 | MHC.CARE ---
If Pts Mom calls to check on him please take her phone contact info and document it in a note for the CARE team to be able to reach out to her for collateral info.
--- NOTE | 2023-04-26 06:54 | PC.NURSE ---
pt observed sleeping, equal chest rise
[2023-04-26 10:12] LABS: MANUAL DIFF FLAG NO
[2023-04-26 10:14] LABS: Basophils Absolute Auto 0.1 X10*3/uL (0.0-0.2); Basophils Percent Auto 1.1 % (0-2); Eosinophils Absolute Auto 0.1 X10*3/uL (0.0-0.4); Eosinophils Percent Auto 1.7 % (0-4); Hematocrit 47.9 % (42.0-52.0); Hemoglobin 16.4 g/dl (14.0-18.0); Imm Gran Abs Auto 0.01 X10*3/uL (0.00-0.03); Imm Gran Pct Auto 0.2 % (0.0-0.4); Lymphocytes Absolute Auto 1.4 X10*3/uL (1.2-4.9); Mean Corpuscular HGB Conc 34.2 g/dl (31.0-36.0); Mean Corpuscular Hemoglobin 31.8 pg (27.0-33.0); Mean Corpuscular Volume 92.8 fL (80.0-98.0); Mean Platelet Volume 9.4 fL (9.4-12.4); Monocytes Absolute Auto 0.5 X10*3/uL (0.1-1.2); Monocytes Percent Auto 9.8 % (2-11); Neutrophils Absolute Auto 3.1 x10*3/uL (2.0-8.3); Neutrophils Percent Auto 60.2 % (45-73); Platelet Count 250 X10*3/uL (160-400); Red Blood Count 5.16 X10*6/uL (4.60-5.80); Red Cell Distribution Width 12.6 % (11.0-16.0); White Blood Count 5.2 X10*3/uL (4.8-10.8)
[2023-04-26 10:36] VITALS: BP 148/86; PULSE 102; RESP 18; TEMP 36.3; O2SAT 98
[2023-04-26 10:47] LABS: Alanine Aminotransferase 33 U/L (0-40); Albumin Level 4.7 g/dL (3.5-5.0); Alkaline Phosphatase 82 U/L (39-117); Anion Gap 12 (12-20); Aspartate Amino Transferase 30 U/L (5-37); Bilirubin Total 0.6 mg/dL (0.0-1.0); Blood Urea Nitrogen 11 mg/dL (9-16); Calcium 9.9 mg/dL (8.4-10.2); Carbon Dioxide 30 mmol/L (22-29); Chloride 106 mmol/L (96-108); Creatinine Clr Calc Pharmacy 132.6; Estimated Glomerular Filt Rate > 60; Ethanol < 10 mg/dL; Glucose Random 91 mg/dL (60-115); Sodium 144 mmol/L (135-145)
--- NOTE | 2023-04-26 11:59 | ECG_ITS ---
Test Reason : QT INTERVAL Blood Pressure : / mmHG Vent. Rate : 078 BPM Atrial Rate : 078 BPM P-R Int : 122 ms QRS Dur : 086 ms QT Int : 366 ms P-R-T Axes : 072 074 061 degrees QTc Int : 417 ms Normal sinus rhythm with sinus arrhythmia Normal ECG No previous ECGs available Referred By: Generic ED Physician Electronically Signed By:AURELIA HAMILTON MD
[2023-04-26 12:13] LABS: Appearance Urine Clear; Color Urine Yellow; Glucose Urine UA Negative (Negative); Leukocyte Esterase Urine Negative (Negative); Nitrite Urine Negative (Negative); PH 6.5 (5.0-9.0); Specific Gravity - Urine 1.025 (1.005-1.025); Urine Blood Negative (Negative); Urine Ketones Trace mg/dL (Negative); Urine Protein Trace mg/dL (Neg-Trace)
[2023-04-26 12:19] LABS: Bacteria Urine None Seen (None Seen); Hyaline Casts Urine 0-2 /LPF (0-2); RBC Urine 0-2 /HPF (0-2); Squamous Epithelial Cell Urine 0-2 /HPF (0-2); WBC Urine 0-5 /HPF (0-5)
[2023-04-26 12:26] LABS: COVID-19 Test Negative (Negative); IDNOW Serial# 08D9AD1C
--- NOTE | 2023-04-26 12:33 | PHA.MEDREC ---
Pharmacy Consult ? Medication Reconciliation Pharmacy has completed the medication reconciliation. Reviewed med rec done by nursing
[2023-04-26 12:36] LABS: Amphetamine Screen Urine Not Detected (Not Detect); Barbiturates, Urine Not Detected (Not Detect); Benzodiazepines Screen Urine Not Detected (Not Detect); Cannabinoid Screen Urine POSITIVE (Not Detect); Cocaine Screen Urine Not Detected (Not Detect); Fentanyl, urine Not Detected (Not Detect); Opiate Screen Urine Not Detected (Not Detect); Phencyclidine Screen Urine Not Detected (Not Detect)
[2023-04-26 14:18] VITALS: RESP 16
--- NOTE | 2023-04-26 14:27 | PC.NURSE ---
Patient asked when he would be able to go home. Patient was standing in hallways staring for an extended period of time. Patient was redirected to not sit on the counter tops. Denies SI/HI/AH/VH
--- NOTE | 2023-04-26 16:56 | PC.NURSE ---
patient expressed frustration about having to stay at the facility. Patient stated they did not want to miss jehovah's witness on saturday. When asked about wanting to take something for anxiety patient initially said he doesnt need any drugs but after a minute patient said he was sorry for being frustrated and was agreeable to taking medication. MD notified. Patient given gingerale and cheese sticks and is watching tv in common area at this time.
[2023-04-26] MEDS: LORazepam 1 MG TABLET 2 MG PO (17:00)
[2023-04-26 18:30] VITALS: BP 131/81; PULSE 94; RESP 18; TEMP 36.1; O2SAT 99
[2023-04-26] MEDS: OLANZapine 5 MG TABLET PO (19:39)
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
[2023-04-27 07:52] LABS: Cholesterol 207 mg/dL (<200); HDL Cholesterol 72 mg/dL (>40); LDL Cholesterol Calculated 122 mg/dL (<100); Triglycerides 65 mg/dL (<150)
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
[2023-04-27] MEDS: Nicotine Polacrilex 2 MG GUM 4 MG BUCCAL (11:25)
[2023-04-27 18:00] VITALS: BP 127/60; PULSE 101; TEMP 36.6; O2SAT 100
[2023-04-27] MEDS: hydrOXYzine HCL 25 MG TABLET PO (20:18)
[2023-04-27] MEDS: OLANZapine ODT 10 MG TAB.RAPDIS TRANSLINGU (20:18)
[2023-04-28 07:50] VITALS: BP 136/75; PULSE 81; RESP 18; TEMP 35.9; O2SAT 100
[2023-04-28] MEDS: Loperamide HCl 2 MG CAPSULE PO (13:35)
[2023-04-28 13:47] VITALS: BP 112/60; PULSE 111; RESP 18; TEMP 36.4; O2SAT 98
[2023-04-28] MEDS: Nicotine Polacrilex 2 MG GUM 4 MG BUCCAL (17:32)
[2023-04-28 18:00] VITALS: BP 126/69; PULSE 90; RESP 18; TEMP 37.7; O2SAT 98
[2023-04-28] MEDS: hydrOXYzine HCL 25 MG TABLET PO (20:31)
[2023-04-28] MEDS: OLANZapine ODT 10 MG TAB.RAPDIS TRANSLINGU (20:32)
[2023-04-28] MEDS: traZODone HCL 50 MG TABLET PO (20:32)
[2023-04-29 08:00] VITALS: BP 118/69; PULSE 74; RESP 18; TEMP 36.7; O2SAT 99
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
[2023-04-29] MEDS: Nicotine Polacrilex 2 MG GUM 4 MG BUCCAL (15:42)
[2023-04-29] MEDS: Magnesium Hydrox/Alum Hydrox 30 ML ORAL.SUSP PO (15:42)
[2023-04-29 17:00] VITALS: BP 117/67; PULSE 89; RESP 16; TEMP 36.4; O2SAT 100
[2023-04-29] MEDS: OLANZapine ODT 10 MG TAB.RAPDIS TRANSLINGU (20:29)
[2023-04-30 08:15] VITALS: BP 113/62; PULSE 93; RESP 18; TEMP 36; O2SAT 98
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
[2023-04-30] MEDS: Nicotine Polacrilex 2 MG GUM 4 MG BUCCAL (17:50)
[2023-04-30 18:00] VITALS: BP 134/74; PULSE 115; RESP 16; TEMP 36.4; O2SAT 100
[2023-04-30] MEDS: OLANZapine ODT 10 MG TAB.RAPDIS TRANSLINGU (19:54)
[2023-05-01 06:00] VITALS: BP 110/53; PULSE 81; RESP 18; TEMP 36.6; O2SAT 99
== END 2023-05-01 10:42 | disposition home or self-care (01) | DRG 750 ==
LOC: HO.ED 04-26 02:09 → HO.PM5 04-26 17:36
PROVIDERS: Nurse Practitioner Family; Admitting Provider Psychiatry & Neurology Psychiatry; Emergency Provider Emergency Medicine Emergency Medical Services; Visit Provider Psychiatry & Neurology Psychiatry
DX: F20.9 Schizophrenia, unspecified (principal); F17.210 Nicotine dependence, cigarettes, uncomplicated; Z20.822 Contact with and (suspected) exposure to COVID-19; Z71.6 Tobacco abuse counseling; Z79.899 Other long term (current) drug therapy
CPT/HCPCS: 36415; 80053; 80061; 80307; 81001; 85025; 87635; 93005; 99285; S9485

== ENCOUNTER → 2023-04-26 17:24 | Outpatient (BNV) | payer OTHER, SELFPAY | PROVIDERS: Admitting Provider Psychiatry & Neurology Psychiatry; Emergency Provider Emergency Medicine Emergency Medical Services; Visit Provider Psychiatry & Neurology Psychiatry | DX: F29 Unspecified psychosis not due to a substance or known physiological condition (principal) | CPT/HCPCS: 90792; 99231; 99232; 99238 ==

== ENCOUNTER 2023-08-23 10:43 | Inpatient (IN) | payer MEDICAID, OTHER, SELFPAY ==
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
[2023-08-23 10:58] VITALS: RESP 16; BMI 21.1
[2023-08-23 12:09] LABS: MANUAL DIFF FLAG NO
[2023-08-23 12:13] LABS: Basophils Percent Auto 0.3 % (0-2); Eosinophils Percent Auto 0.1 % (0-4); Hematocrit 45.3 % (42.0-52.0); Hemoglobin 15.8 g/dl (14.0-18.0); Imm Gran Abs Auto 0.02 X10*3/uL (0.00-0.03); Imm Gran Pct Auto 0.2 % (0.0-0.4); Lymphocytes Absolute Auto 0.6 X10*3/uL (1.2-4.9); Lymphocytes Percent Auto 7.2 % (20-40); Mean Corpuscular HGB Conc 34.9 g/dl (31.0-36.0); Mean Corpuscular Hemoglobin 31.7 pg (27.0-33.0); Mean Platelet Volume 10.1 fL (9.4-12.4); Monocytes Absolute Auto 0.6 X10*3/uL (0.1-1.2); Monocytes Percent Auto 6.6 % (2-11); Neutrophils Absolute Auto 7.4 x10*3/uL (2.0-8.3); Neutrophils Percent Auto 85.6 % (45-73); Platelet Count 239 X10*3/uL (160-400); Red Blood Count 4.98 X10*6/uL (4.60-5.80); Red Cell Distribution Width 12.2 % (11.0-16.0); White Blood Count 8.7 X10*3/uL (4.8-10.8)
[2023-08-23 12:27] LABS: Acetaminophen LAB < 3 mcg/mL (<30); Alanine Aminotransferase 15 U/L (0-40); Alkaline Phosphatase 82 U/L (39-117); Anion Gap 15 (12-20); Aspartate Amino Transferase 18 U/L (5-37); Bilirubin Total 0.6 mg/dL (0.0-1.0); Blood Urea Nitrogen 5 mg/dL (9-16); Calcium 9.7 mg/dL (8.4-10.2); Carbon Dioxide 24 mmol/L (22-29); Chloride 107 mmol/L (96-108); Creatinine Clr Calc Pharmacy 119.4; Estimated Glomerular Filt Rate > 60; Ethanol < 10 mg/dL; Glucose Random 109 mg/dL (60-115); Potassium 3.4 mmol/L (3.3-5.1); Salicylate < 5.0 mg/dL (15-30); Sodium 143 mmol/L (135-145); Total Protein 8.2 g/dL (6.5-8.0)
[2023-08-23 12:30] LABS: COVID-19 Test Negative (Negative); IDNOW Serial# 08D9AD1C
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
[2023-08-23 13:39] VITALS: RESP 14
--- NOTE | 2023-08-23 17:15 | PC.NURSE ---
patient refused olanzepine
--- NOTE | 2023-08-23 18:50 | MHC.CARE ---
CARE Team evaluation complete; inpatient bedsearch. On a section 12A for safety. ED provider, POD RN and Pt are aware of disposition.
--- NOTE | 2023-08-23 18:52 | PC.NURSE ---
patient has been calm and cooperative, no apparent distress, gave urine sample. Occasionally bursts out in laughter but then is emotionally labile after
[2023-08-23 19:04] LABS: Appearance Urine Clear; Color Urine Yellow; Glucose Urine UA Negative (Negative); Leukocyte Esterase Urine Negative (Negative); Nitrite Urine Negative (Negative); Urine Blood Negative (Negative); Urine Ketones Trace mg/dL (Negative); Urine Protein Negative (Neg-Trace)
--- NOTE | 2023-08-23 19:10 | PC.NURSE ---
This RN assumed pt care @ 1900. Pt pacing in room and unit. Pt requested and given supplies to take a shower and brush his teeth. Plan of care ongoing.
[2023-08-23 19:15] LABS: Amphetamine Screen Urine Not Detected (Not Detect); Barbiturates, Urine Not Detected (Not Detect); Benzodiazepines Screen Urine Not Detected (Not Detect); Cannabinoid Screen Urine POSITIVE (Not Detect); Cocaine Screen Urine Not Detected (Not Detect); Fentanyl, urine Not Detected (Not Detect); Opiate Screen Urine Not Detected (Not Detect); Phencyclidine Screen Urine Not Detected (Not Detect)
--- NOTE | 2023-08-23 19:32 | PC.NURSE ---
Pt out of the shower and requesting a face mask. Wire removed from face mask and given to pt. Pt standing in common area watching tv. Plan of care ongoing.
--- NOTE | 2023-08-23 19:59 | PC.NURSE ---
Pt requesting meds to help with sleep. Provider notified. No new orders at this time. Plan of care ongoing.
[2023-08-23] MEDS: LORazepam 1 MG TABLET 2 MG PO (20:14)
[2023-08-23 20:17] VITALS: BP 148/96; PULSE 98; RESP 20; TEMP 37.3; O2SAT 96
--- NOTE | 2023-08-23 20:17 | PC.NURSE ---
Pt medicated per aug. Plan of care ongoing.
[2023-08-24 06:30] VITALS: RESP 16
--- NOTE | 2023-08-24 08:15 | PC.NURSE ---
patient appears to be asleep, respirations equal and unlabored, skin dry and intact.
[2023-08-24 13:23] VITALS: BP 122/78; PULSE 83; RESP 16; TEMP 36.9; O2SAT 99
--- NOTE | 2023-08-24 19:53 | PC.NURSE ---
Assumed care for pt. Pt sleeping at the bedside. No apparent distress noted. Breaths are even regular and unlabored. Monitoring is ongoing.
[2023-08-24] MEDS: Melatonin 3 MG TABLET 6 MG PO (22:19)
--- NOTE | 2023-08-25 07:20 | PC.NURSE ---
PT IS A/O X 4. NO SOB/USAMA NOTED. SPEAKS IN FULL SENTENCES. AMB (I) GAIT STEADY. PT IS PACING THE HALLWAYS AT THIS TIME. PT IS CALM/CO-OP. PT DENIES ANY PAIN/DISC. PT ATE 100% OF BREAKFAST. PT DENIES ANY SI/HI. PT AWARE OF PLAN OF CARE. WILL CONTINUE TO MONITOR.
[2023-08-25 07:46] VITALS: BP 148/98; PULSE 93; RESP 16; TEMP 37.1; O2SAT 96
--- NOTE | 2023-08-25 09:23 | PC.NURSE ---
PT SHOWERED, CLEANED HOSP GARMENT ON.
[2023-08-25] MEDS: Nicotine Polacrilex 2 MG GUM BUCCAL (12:18)
--- NOTE | 2023-08-25 12:56 | PC.NURSE ---
CARE TEAM AT BEDSIDE, PT AWARE OF PLAN OF CARE.
--- NOTE | 2023-08-25 13:40 | PC.NURSE ---
PT AMB (I) GAIT STEADY IN HALLWAY AND BTB.
[2023-08-25 19:18] VITALS: BP 148/88; PULSE 93; RESP 16; TEMP 36.6; O2SAT 98
--- NOTE | 2023-08-25 19:35 | PC.NURSE ---
assumed care @1900, pt calmly talking to visitor in room at this time
--- NOTE | 2023-08-25 22:22 | PC.NURSE ---
Regina- [phone] friend called for update
--- NOTE | 2023-08-26 | ECG_ITS ---
Test Reason : COCAINE USE Blood Pressure : / mmHG Vent. Rate : 058 BPM Atrial Rate : 058 BPM P-R Int : 120 ms QRS Dur : 084 ms QT Int : 404 ms P-R-T Axes : 053 069 064 degrees QTc Int : 396 ms Sinus bradycardia with marked sinus arrhythmia Otherwise normal ECG When compared with ECG of 26-APR-2023 12:10, No significant change was found Referred By: Krystal Rios Electronically Signed By:FITO BRITT
[2023-08-26 05:55] VITALS: BP 128/83; PULSE 60; TEMP 36.6; O2SAT 97
--- NOTE | 2023-08-26 13:46 | PC.NURSE ---
Report given to Monik RAMIREZ. Pt will be transported to unit by [facility] staff.
[2023-08-26 17:11] VITALS: BMI 21.4
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
[2023-08-26 20:00] VITALS: BP 118/57; PULSE 66; RESP 16; TEMP 36.7; O2SAT 99
[2023-08-27] MEDS: hydrOXYzine HCL 25 MG TABLET PO (03:54)
--- NOTE | 2023-08-27 03:55 | PC.NURSE ---
Miguel A reported feeling anxious, was given atarax PO prn.
[2023-08-27 07:45] VITALS: BP 121/69; PULSE 63; RESP 18; TEMP 36.3; O2SAT 98
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
[2023-08-27 20:00] VITALS: RESP 16
[2023-08-27] MEDS: OLANZapine 10 MG TABLET PO (20:25)
[2023-08-28 08:40] VITALS: BP 112/74; PULSE 52; RESP 16; TEMP 36.7; O2SAT 100
[2023-08-28 09:02] LABS: Estimated Average Glucose 97 mg/dL
[2023-08-28 09:13] LABS: Cholesterol 199 mg/dL (<200); HDL Cholesterol 57 mg/dL (>40); LDL Cholesterol Calculated 131 mg/dL (<100); Triglycerides 57 mg/dL (<150)
[2023-08-28 09:30] LABS: Free T4 (Free Thyroxine) 0.88 ng/dL (0.71-1.85)
[2023-08-28 09:40] LABS: Folate 11.5 ng/mL (> or = 4.0); Vitamin B12 672 pg/mL (200-900)
[2023-08-28] MEDS: OLANZapine 2.5 MG TABLET PO (14:38)
--- NOTE | 2023-08-28 16:17 | HO.PSYCHPN ---
Subjective Subjective Date of Service: 08/28/23 Reason For Visit: Psychosis Interim History: lying in bed with towel over face. rousable. does not uncover himself. states he is fine, meds are not too sedating, amenable to continue with present regimen. planning for saturday discharge. per staff, up saturday. no notable events or behaviors. Mental Status Exam Mental Status Exam Narrative: in bed, rousable. does not uncover self or get up. swaddled in sheet and towel over face. cooperative, minimally. no PMA/PMR. speech decr amoutn and rate and loudness. thoughts linear and logical. affect not observed. mood euthymic. no SI/SIBI/HI/AVH expressed. Diagnostics Vital Signs (24Hr): Vital Signs - 24 hr 08/27/23 20:00 08/28/23 08:40 Temperature 98.0 F Pulse Rate 52 Respiratory Rate 16 16 Blood Pressure 112/74 Pulse Oximetry 100 Oxygen Delivery Method Room Air BMI result Body Mass Index 21.4 Labs 08/23/23 11:48 08/23/23 11:48 Labs: Laboratory Results - last 48 hr 08/28/23 08:39 Estimat Average Glucose 97 Hemoglobin A1c % 5.0 Triglycerides 57 Cholesterol 199 LDL Cholesterol, Calc 131 H HDL Cholesterol 57 Vitamin B12 672 Folate 11.5 TSH 0.20 L Free T4 0.88 Medications Medications Current Medications Acetaminophen (Acetaminophen 325 Mg Tablet) 650 mg PO Q6H PRN PRN Reason: Headache/Pain Mild Scale (1-3) Al Hydroxide/Mg Hydroxide (Magnesium Hydrox/Alum Hydrox 30 Ml Oral.Susp) 30 ml PO Q6H PRN PRN Reason: Heartburn/Nausea Hydroxyzine HCl (Hydroxyzine Hcl 25 Mg Tablet) 25 mg PO Q6H PRN PRN Reason: Anxiety Last Admin: 08/27/23 03:54 Dose: 25 mg Magnesium Hydroxide (Milk Of Magnesia 30 Ml Oral.Susp) 30 ml PO DAILY PRN PRN Reason: Constipation Nicotine Polacrilex (Nicotine Polacrilex 2 Mg Gum) 4 mg BUCCAL Q2H PRN PRN Reason: Nicotine Cravings Olanzapine (Olanzapine 10 Mg Tablet) 10 mg PO BEDTIME MARINA Last Admin: 08/27/23 20:25 Dose: 10 mg Olanzapine (Olanzapine 2.5 Mg Tablet) 2.5 mg PO Q4H PRN PRN Reason: agitation Last Admin: 08/28/23 14:38 Dose: 2.5 mg Trazodone HCl (Trazodone Hcl 50 Mg Tablet) 50 mg PO BEDTIME MRX1 PRN PRN Reason: Insomnia Allergies Allergies Allergy/AdvReac Type Severity Reaction Status Date / Time lactase [From Dairy Aid] AdvReac Rash Verified 08/25/23 13:51 Pork/Porcine Containing AdvReac Nausea Verified 08/23/23 16:31 Products Assessment & Plan Assessment & Plan (1) Psychosis: Status: Acute Code(s): F29 - Unspecified psychosis not due to a substance or known physiological condition (2) Dextromethorphan use disorder, moderate: Status: Acute Code(s): F19.20 - Other psychoactive substance dependence, uncomplicated Plan 08/26: detox from DXM. restart olanzapine 10 mg QHS for psychosis and insomnia. 3-day up saturday. 08/27: in bed, does not appear t6o wish to engage in interview. denies any problems or concerns. planning saturday discharge. Reason for continued inpatient stay Substantial Risk for: harm to self, inability to function and rapid decompensation Time Spent With Patient Time: Total time managing care of this patient today __25__ minutes.
[2023-08-28 20:10] VITALS: BP 118/55; PULSE 53; RESP 16; TEMP 36.3; O2SAT 96
[2023-08-28] MEDS: OLANZapine 10 MG TABLET PO (20:34)
[2023-08-29 07:00] VITALS: BMI 21.8
[2023-08-29 07:45] VITALS: BP 122/69; PULSE 110; RESP 14; TEMP 36.6; O2SAT 97
--- NOTE | 2023-08-29 11:56 | HO.PSYCHPN ---
Subjective Subjective Date of Service: 08/29/23 Reason For Visit: Psychosis Subjective Notes: 3 Day Interim History: Reviewed with Dr. Goodson. Pt observed talking on the phone most of the morning. attending groups. Pt reports feeling way better today; pt stated, my mom brought me here cause I was high and she said I was arguing with my family . 3 day up tomorrow. pt denies SI/HI/VH/AH. Medication Compliance: Yes Side effects from medications: No Attending Groups: Intermittent Review of Systems Constitutional: Reports as per HPI Eyes: Reports as per HPI Reports as per HPI Cardiovascular: Reports as per HPI Respiratory: Reports as per HPI Gastrointestinal: Reports as per HPI Genitourinary: Reports as per HPI Musculoskeletal: Reports as per HPI Skin/Breast: Reports as per HPI Reports as per HPI Psychiatric: Reports as per HPI Endocrine: Reports as per HPI Hematologic/Lymphatic: Reports as per HPI Allergic/Immunologic: Reports as per HPI Mental Status Exam Mental Status Exam Patient Appearance: Disheveled Patient Orientation: Person, Place, Time and Situation Level of Consciousness: Awake Patient Behavior: Appropriate Mood Description: Calm Ability to Follow Directions: Good Speech Pattern: Clear Hallucinations: None Delusions: Not Present Thought Process: Intact Thought Content: positive for Intact Diagnostics Vital Signs (24Hr): Vital Signs - 24 hr 08/28/23 20:10 08/29/23 07:45 Temperature 97.3 F 97.9 F Pulse Rate 53 110 H Respiratory Rate 16 14 Blood Pressure 118/55 L 122/69 Pulse Oximetry 96 97 Oxygen Delivery Method Room Air Room Air BMI result Body Mass Index 21.8 Labs 08/23/23 11:48 08/23/23 11:48 Labs: Laboratory Results - last 48 hr 08/28/23 08:39 Estimat Average Glucose 97 Hemoglobin A1c % 5.0 Triglycerides 57 Cholesterol 199 LDL Cholesterol, Calc 131 H HDL Cholesterol 57 Vitamin B12 672 Folate 11.5 TSH 0.20 L Free T4 0.88 Medications Medications Current Medications Acetaminophen (Acetaminophen 325 Mg Tablet) 650 mg PO Q6H PRN PRN Reason: Headache/Pain Mild Scale (1-3) Al Hydroxide/Mg Hydroxide (Magnesium Hydrox/Alum Hydrox 30 Ml Oral.Susp) 30 ml PO Q6H PRN PRN Reason: Heartburn/Nausea Hydroxyzine HCl (Hydroxyzine Hcl 25 Mg Tablet) 25 mg PO Q6H PRN PRN Reason: Anxiety Last Admin: 08/27/23 03:54 Dose: 25 mg Magnesium Hydroxide (Milk Of Magnesia 30 Ml Oral.Susp) 30 ml PO DAILY PRN PRN Reason: Constipation Nicotine Polacrilex (Nicotine Polacrilex 2 Mg Gum) 4 mg BUCCAL Q2H PRN PRN Reason: Nicotine Cravings Olanzapine (Olanzapine 10 Mg Tablet) 10 mg PO BEDTIME MARINA Last Admin: 08/28/23 20:34 Dose: 10 mg Olanzapine (Olanzapine 2.5 Mg Tablet) 2.5 mg PO Q4H PRN PRN Reason: agitation Last Admin: 08/28/23 14:38 Dose: 2.5 mg Trazodone HCl (Trazodone Hcl 50 Mg Tablet) 50 mg PO BEDTIME MRX1 PRN PRN Reason: Insomnia Allergies Allergies Allergy/AdvReac Type Severity Reaction Status Date / Time lactase [From Dairy Aid] AdvReac Rash Verified 08/25/23 13:51 Pork/Porcine Containing AdvReac Nausea Verified 08/23/23 16:31 Products Assessment & Plan Assessment & Plan (1) Psychosis: Status: Acute Code(s): F29 - Unspecified psychosis not due to a substance or known physiological condition (2) Dextromethorphan use disorder, moderate: Status: Acute Code(s): F19.20 - Other psychoactive substance dependence, uncomplicated Plan 08/26: detox from DXM. restart olanzapine 10 mg QHS for psychosis and insomnia. 3-day up saturday. 08/27: in bed, does not appear t6o wish to engage in interview. denies any problems or concerns. planning saturday discharge. 08/28: continue current tx plan. Patient educated on: medication risk/benefits Informed Consent: understands Reason for continued inpatient stay Substantial Risk for: med/psych decompensation Time Spent With Patient Time: Total time managing care of this patient today _20___ minutes.
[2023-08-29] MEDS: hydrOXYzine HCL 25 MG TABLET PO (16:55)
[2023-08-29 19:40] VITALS: BP 132/79; PULSE 84; RESP 18; TEMP 37; O2SAT 94
[2023-08-29] MEDS: OLANZapine 10 MG TABLET PO (20:17)
[2023-08-30 06:00] VITALS: BP 121/61; PULSE 57; RESP 16; TEMP 36.1; O2SAT 100
--- NOTE | 2023-08-30 09:12 | PM.PSYDC ---
DS: Providers Provider Date of Service: 08/30/23 Date of admission: 08/26/23 12:14 Date of discharge: 08/30/23 Primary care physician: Unknown Physician Attending physician on admission: Wilton Eden Attending physician on discharge: Adolfo Goodson Discharging clinician: Katie Salas DS: Diagnosis Discharge Diagnosis (1) Psychosis: Status: Acute (2) Dextromethorphan use disorder, moderate: Status: Acute DS: Medications Discharge Medications Home Medications: Previous Rx's Medication Instructions Recorded olanzapine 10 mg tablet 10 mg PO BEDTIME 30 days #30 tabs 08/30/23 Mental Status Exam Mental Status Exam Narrative: Pt is alert and oriented; behavior is cooperative and calm; dressed in casual attire; mood is described as good ; eye contact appropriate; Speech is normal rate, volume and prosody and not pressured; thought process is organized; Thought content is on discharge; denies SI/HI/AH/VH. Data Data Completed and Pending Completed studies during hospitalization [Text1]: 08/23/23 08/23/23 08/28/23 11:48 18:49 08:39 WBC 8.7 RBC 4.98 Hgb 15.8 Hct 45.3 MCV 91.0 MCH 31.7 MCHC 34.9 RDW 12.2 Plt Count 239 MPV 10.1 Immature Gran % (Auto) 0.2 Neut % (Auto) 85.6 H Lymph % (Auto) 7.2 L Craven % (Auto) 6.6 Eos % (Auto) 0.1 Baso % (Auto) 0.3 Lymph # (Auto) 0.6 L Craven # (Auto) 0.6 Eos # (Auto) 0.0 Baso # (Auto) 0.0 Abs Immat Gran (auto) 0.02 Absolute Neuts (auto) 7.4 Absolute Nucleated RBC 0.000 Nucleated RBC % (auto) 0.0 Sodium 143 Potassium 3.4 Chloride 107 Carbon Dioxide 24 Anion Gap 15 BUN 5 L Creatinine 0.84 Estim Creat Clear Calc 119.4 Estimated GFR > 60 Random Glucose 109 Estimat Average Glucose 97 Hemoglobin A1c % 5.0 Calcium 9.7 Total Bilirubin 0.6 AST 18 ALT 15 Alkaline Phosphatase 82 Total Protein 8.2 H Albumin 5.0 Triglycerides 57 Cholesterol 199 LDL Cholesterol, Calc 131 H HDL Cholesterol 57 Vitamin B12 672 Folate 11.5 TSH 0.20 L Free T4 0.88 Urine Color Yellow Urine Appearance Clear Urine pH 7.0 Ur Specific [place] 1.010 Urine Protein Negative Urine Glucose (UA) Negative Urine Ketones Trace Urine Blood Negative Urine Nitrite Negative Ur Leukocyte Esterase Negative Salicylates < 5.0 L Urine Opiates Screen Not Detected Urine Fentanyl Screen Not Detected Acetaminophen < 3 Ur Barbiturates Screen Not Detected Ur Phencyclidine Scrn Not Detected Ur Amphetamines Screen Not Detected U Benzodiazepines Scrn Not Detected Urine Cocaine Screen Not Detected U Marijuana (THC) Screen POSITIVE H Ethyl Alcohol < 10 COVID-19 ([facility]) Negative COVID-19 Clin Com See Note DS: Summary Hospital Course Hospital Course: per CARE team MATTEO traylor after mother called 911 for pt's aggressive behavior toward his younger brother. pt's mother reported that pt has recently been behaving more aggressively toward his brother, has not been tending to ADLs, and has been talking and laughing to himself a lot. on MSE in the pod, pt was described as paranoid, religiously focused and not oriented to the situation. pt's mother reported to CARE team that when he is on medications he does quite well, and his current presentation is far from his medicated baseline. she also expressed concern for his abusing cough syrup, which he admitted to doing to hospital staff. on interview with MD on unit, the following day, pt's mental status appears to have improved substantially. he is oriented and appropriate in conversation. he acknowledges zyprexa has been helpful for him when he has been paranoid, and although he does not feel terribly that way just now, he agrees to restart it. he does c/o insomnia and expresses appreciation for the sedating qualities of zyprexa. some discussion is had about whether pt's symptoms can be accounted for by his chronic DXM abuse or whether he has a primary psychotic disorder. no conclusion is made, but patient agrees to take the zyprexa for the time being. yancey warning is given, the fact of pt's 3-day notice is recognized, and the likelihood that pt will discharge on saturday, upon the expiry of his 3-day notice, is discussed. he has no other questions, requests, or complaints. During hospital course, detox from DXM. restart olanzapine 10 mg QHS for psychosis and insomnia. 3-day up saturday. in bed, does not appear to wish to engage in interview. denies any problems or concerns. planning saturday discharge. Pt observed talking on the phone most of the morning. attending groups. Pt reports feeling way better today; pt stated, my mom brought me here cause I was high and she said I was arguing with my family . Pt reports he plans on continuing to take zyprexa once discharged. Pt is being discharged on 3 day notice. pt denies SI/HI/VH/AH. Time spent discussing smoking cessation with patient: 3 to 10 minutes Status at Discharge Cognitive/behavioral status at discharge: Patient was interviewed prior to discharge and found to be fully oriented and without any SI or HI. Patient has insight and demonstrates good judgment in terms of wanting to pursue treatment. Patient has a safety plan that includes presenting to the closest ER or calling 911 if feeling unsafe. Functional status at discharge: independent ambulation Overall status at discharge: patient is back to baseline Time Spent with Patient Time attestation: Total time managing care of this patient today _30___ minutes. Time spent: Less than 30 minutes Discharge Plan Discharge Anticipated Discharge Date/Time: 08/30/23 11:00 Patient Disposition: Home, Self-Care Discharge Diagnosis: Schizophrenia, dextromethorphan use d/o Referrals: Therapy & Psychiatry [Other] - 1 Week (*Please present to the [facility] clinic as a walk in Saturday through Saturday between the hours of 8am and 8pm* ) [facility] [Provider Group] - 1 Week (No PCP. [facility] has been assigned as PCP.) Discharge Medications: New olanzapine 10 mg Tablet 10 mg PO BEDTIME 30 Days Qty: 30 0RF Discharge Orders: Discharge Order (Routine); Ordered 08/30/23 Ordered By: Katie Salas Diet: Regular diet Activity on Discharge: As tolerated Stand Alone Forms: Patient Portal Discharge page, Community Support Care Plan Goals: Maintain mood and safe behaviors Take medications as prescribed Continue to pursue sobriety Practice coping skills Continue with outpatient providers and reach out to them as needed Health Concerns: Mood stability and behaviors Sobriety Plan of Treatment: Follow up with your PCP, psychiatric provider and other outpatient providers regarding above concerns Take medications as prescribed Assessment: Patient was interviewed prior to discharge and found to be fully oriented and without any SI or HI. Patient has insight and demonstrates good judgment in terms of wanting to pursue treatment. Patient has a safety plan that includes presenting to the closest ER or calling 911 if feeling unsafe. Discharge Date/Time: 08/30/23 11:04
== END 2023-08-30 11:04 | disposition home or self-care (01) | DRG 750 ==
LOC: HO.ED 08-26 08:10 → HO.PADLT16 08-26 13:27
PROVIDERS: Admitting Provider Psychiatry & Neurology Psychiatry; Emergency Provider Emergency Medicine Emergency Medical Services; Visit Provider Psychiatry & Neurology Psychiatry
DX: F20.9 Schizophrenia, unspecified (principal); Z91.148 Patient's other noncompliance with medication regimen for other reason; F19.20 Other psychoactive substance dependence, uncomplicated; Z20.822 Contact with and (suspected) exposure to COVID-19; Z79.899 Other long term (current) drug therapy
CPT/HCPCS: 36415; 80053; 80061; 80143; 80179; 80307; 81003; 82607; 82746; 83036; 84439; 84443; 85025; 87635; 93005; 99285; S9485

== ENCOUNTER → 2023-08-26 08:52 | Outpatient (BNV) | payer SELFPAY | PROVIDERS: Admitting Provider Psychiatry & Neurology Psychiatry; Emergency Provider Emergency Medicine Emergency Medical Services; Visit Provider Internal Medicine | DX: R00.1 Bradycardia, unspecified (principal); F14.90 Cocaine use, unspecified, uncomplicated | CPT/HCPCS: 93010 ==

== ENCOUNTER → 2023-08-26 12:14 | Outpatient (BNV) | payer MEDICAID, OTHER, SELFPAY | PROVIDERS: Admitting Provider Psychiatry & Neurology Psychiatry; Emergency Provider Emergency Medicine Emergency Medical Services; Visit Provider Psychiatry & Neurology Psychiatry | DX: F29 Unspecified psychosis not due to a substance or known physiological condition (principal); F19.20 Other psychoactive substance dependence, uncomplicated | CPT/HCPCS: 90792; 99231; 99232; 99238 ==

== ENCOUNTER 2024-05-13 14:29 | Inpatient (IN) | payer OTHER, SELFPAY ==
--- NOTE | 2024-05-13 14:50 | ED_ITS ---
HPI - Psych General Chief Complaint: Psychiatric Symptoms Stated Complaint: ANXIETY & PARANOIA,NON MED COMPLIANT PER EMS Time Seen by Provider: 05/13/24 14:36 Source: patient and EMS Mode of arrival: EMS Limitations: other (not speaking) History of Present Illness ED Provider: VINICIUS SU Narrative: 24 yo male from home PMH of schizophrenia here with c/o not taking his medications for 4 days, more paranoid he denies SI/HI family worried and called EMS. He was agitated with EMS with questioning on arrival. MD complaint: feels depressed and anxiety Onset (ago): week(s) Duration: intermittent History of same: Yes Relieving factors: none Exacerbating factors: other Context: not taking psychiatric medications Associated psychiatric symptoms: depression Associated symptoms: denies other symptoms Treatments prior to arrival: none Related Data Previous Rx's ?Medication ?Instructions ?Recorded olanzapine 10 mg tablet 10 mg PO BEDTIME 30 days #30 tabs 08/30/23 Allergies Allergy/AdvReac Type Severity Reaction Status Date / Time lactase [From Dairy Aid] AdvReac Rash Verified 05/13/24 15:17 Pork/Porcine Containing AdvReac Nausea Verified 05/13/24 15:17 Products Review of Systems 2 Review of Systems: ROS unable to be obtained due to not responding to questions PMFSH Past Medical History Attestation statement: The following information was validated with the patient. Source: old records reviewed Medical History Schizophrenia No known health problems Social History Social History Household Members: Family Household Members Other:: Mother and younger brother Housing: Apartment Do you presently have visiting nurse or other home services: No Unable to assess alcohol history related to: Refusing to respond Alcohol intake: current Alcohol intake frequency: does not drink Patient Tobacco Use Status: Never used Tobacco Tobacco use type: Cigar Smoked in Last 30 Days: No e-Cigarette/Vaping Use: Never Used Second Hand Smoke Exposure: Yes Use of substances other than those prescribed or required for medical reasons: No Substance Use Type: Marijuana and Other Advance Directives: No service: No Sexual orientation: Straight/Heterosexual Physical Exam 2 Vital Signs: Vital Signs: Last Vital Signs Temp 99.1 F 05/13/24 15:09 Pulse 120 H 05/13/24 15:09 Resp 16 05/13/24 15:31 BP 140/94 H 05/13/24 15:09 Pulse Ox 100 05/13/24 15:09 O2 Del Method Room Air 05/13/24 15:09 BMI result Body Mass Index 17.7 Appearance: Alert. answering by nodding his head. No acute distress. flat affect and withdrawn Eyes: Pupils equal, round and reactive to light. ENT: Pharynx normal. Neck: Normal inspection. Neck supple. CVS: Normal heart rate and rhythm. Pulses normal. Respiratory: No respiratory distress. Breath sounds normal. Abdomen: Soft and nontender. Skin: Skin warm and dry. Normal skin color. Normal skin turgor. Extremities: No lower extremity edema. Neuro: no focal deficits. No motor deficit. No sensory deficit. Course Course Course Narrative: observation care revealed that the patient does meet psychiatric necessity for hospitalization. final disposition discussed with the patient. The patient completed observation care at 759am. He refused to sign CV so I signed 12b for admission Medications Administered Discontinued Medications Generic Name Dose Route Start Last Admin Trade Name Freq PRN Reason Stop Dose Admin Lorazepam 2 mg 05/13/24 15:07 05/13/24 15:13 Lorazepam 1 Mg Tablet PO 05/13/24 15:08 2 mg ONCE ONE Administration Olanzapine 10 mg 05/13/24 15:07 05/13/24 15:13 Olanzapine 10 Mg Tablet PO 05/13/24 15:08 10 mg ONCE ONE Administration Potassium Chloride 20 meq 05/13/24 16:56 05/13/24 18:23 Potassium Chloride Er 20 Meq Tab.Er.Prt PO 05/13/24 16:57 Not Given ONCE ONE Medical Decision Making Medical Decision Making [facility] Narrative: 24 yo male with PMH of schizophrenia not taking his medications he is withdrawn denies SI/HI family called EMS about his change in behaviors will obtain labs and refer to CARE team Differential Diagnosis Differential Diagnoses: The differential diagnosis associated with the presentation includes schizophrenia, non compliance Admission/Observation Consideration of admission/observation: Escalation of care including admission/observation considered physician observation started at 253pm pending CARE team Consult Healthcare Provider Management of the patient was discussed with: Behavioral Health Provider Lab Data [facility] Lab Attestation statement: I reviewed the patient's lab results. 05/13/24 15:51 05/13/24 15:51 Labs: Lab Results 05/13/24 05/13/24 Range/Units 15:51 15:55 WBC 5.4 (4.8-10.8) X10*3/uL RBC 4.87 (4.60-5.80) X10*6/uL Hgb 15.6 (14.0-18.0) g/dl Hct 43.8 (42.0-52.0) % MCV 89.9 (80.0-98.0) fL MCH 32.0 (27.0-33.0) pg MCHC 35.6 (31.0-36.0) g/dl RDW 12.4 (11.0-16.0) % Plt Count 235 (160-400) X10*3/uL MPV 10.6 (9.4-12.4) fL Immature Gran % (Auto) 0.2 (0.0-0.4) % Neut % (Auto) 73.8 H (45-73) % Lymph % (Auto) 14.2 L (20-40) % [place] % (Auto) 9.6 (2-11) % Eos % (Auto) 1.3 (0-4) % Baso % (Auto) 0.9 (0-2) % Lymph # (Auto) 0.8 L (1.2-4.9) X10*3/uL [place] # (Auto) 0.5 (0.1-1.2) X10*3/uL Eos # (Auto) 0.1 (0.0-0.4) X10*3/uL Baso # (Auto) 0.1 (0.0-0.2) X10*3/uL Abs Immat Gran (auto) 0.01 (0.00-0.03) X10*3/uL Absolute Neuts (auto) 4.0 (2.0-8.3) x10*3/uL Absolute Nucleated RBC 0.000 (0.0-0.012) X10*3/uL Nucleated RBC % (auto) 0.0 (0.0-0.2) /100WBC Sodium 142 (135-145) mmol/L Potassium 3.2 L (3.3-5.1) mmol/L Chloride 106 (96-108) mmol/L Carbon Dioxide 25 (22-29) mmol/L Anion Gap 14 (12-20) BUN 4 L (9-16) mg/dL Creatinine 0.84 (0.5-1.4) mg/dL Estim Creat Clear Calc 105.2 Estimated GFR > 60 Random Glucose 148 H (60-115) mg/dL Calcium 9.7 (8.4-10.2) mg/dL Magnesium 2.1 (1.6-2.6) mg/dL Total Bilirubin 0.4 (0.0-1.0) mg/dL Direct Bilirubin 0.2 (0.0-0.5) mg/dL AST 57 H (5-37) U/L ALT 19 (0-40) U/L Alkaline Phosphatase 104 (39-117) U/L Total Protein 7.5 (6.5-8.0) g/dL Albumin 4.6 (3.5-5.0) g/dL Urine Color Yellow Urine Appearance Clear Urine pH 7.0 (5.0-9.0) Ur Specific [place] <= 1.005 (1.005-1.025) Urine Protein Negative (Neg-Trace) mg/dL Urine Glucose (UA) Negative (Negative) mg/dL Urine Ketones Trace (Negative) mg/dL Urine Blood Negative (Negative) Urine Nitrite Negative (Negative) Ur Leukocyte Esterase Negative (Negative) Urine Opiates Screen Not Detected (Not Detect) Ur Buprenorphine Scrn Not Detected (Not Detect) ng/mL Ur Oxycodone Screen Not Detected (Not Detect) ng/mL Urine Methadone Screen Not Detected (Not Detect) ng/mL Urine Fentanyl Screen Not Detected (Not Detect) Ur Barbiturates Screen Not Detected (Not Detect) Ur Phencyclidine Scrn Not Detected (Not Detect) Ur Amphetamines Screen Not Detected (Not Detect) U Benzodiazepines Scrn Not Detected (Not Detect) Urine Cocaine Screen Not Detected (Not Detect) U Marijuana (THC) Screen POSITIVE H (Not Detect) Ethyl Alcohol < 10 mg/dL Independent Historian Clinical information obtained from an independent historian. History obtained from or confirmed by: EMS External Record Review External record reviewed: Inpatient record Discharge Plan Discharge Clinical Impression: Schizophrenia Patient Disposition: Admitted As Inpatient Interventions: [place]-Suicide Risk Severity Scale Last Done: 05/13/24 15:31
[2024-05-13 15:09] VITALS: BP 140/94; PULSE 110; PULSE 120; RESP 16; TEMP 37.3; O2SAT 100; O2SAT 99; BMI 17.7
[2024-05-13] MEDS: LORazepam 1 MG TABLET 2 MG PO (15:13)
[2024-05-13] MEDS: OLANZapine 10 MG TABLET PO (15:13)
[2024-05-13 15:31] VITALS: RESP 16
--- NOTE | 2024-05-13 15:34 | PC.NURSE ---
Satya is coming in from home today, per EMS, patient hasnt taken his psychiatric meds in at least four days. This RN asked pt if he is not taking his medications, he nods yes, but when asked what medication he is supposed to take, he shrugs his shoulders. He denies SI/HI/AH/VH but occasionally does seem to be responding to some internal stimuli. Pt unable to maintain personal boundaries, asking questions about other patients, interrupting staff when they are speaking to other patients. Security at bedside to redirect, PO medications administered per MAR. Patient is now resting in bed in 1
[2024-05-13 15:57] LABS: MANUAL DIFF FLAG NO
[2024-05-13 15:58] LABS: Basophils Absolute Auto 0.1 X10*3/uL (0.0-0.2); Basophils Percent Auto 0.9 % (0-2); Eosinophils Absolute Auto 0.1 X10*3/uL (0.0-0.4); Eosinophils Percent Auto 1.3 % (0-4); Hematocrit 43.8 % (42.0-52.0); Hemoglobin 15.6 g/dl (14.0-18.0); Imm Gran Abs Auto 0.01 X10*3/uL (0.00-0.03); Imm Gran Pct Auto 0.2 % (0.0-0.4); Lymphocytes Absolute Auto 0.8 X10*3/uL (1.2-4.9); Lymphocytes Percent Auto 14.2 % (20-40); Mean Corpuscular HGB Conc 35.6 g/dl (31.0-36.0); Mean Corpuscular Volume 89.9 fL (80.0-98.0); Mean Platelet Volume 10.6 fL (9.4-12.4); Monocytes Absolute Auto 0.5 X10*3/uL (0.1-1.2); Monocytes Percent Auto 9.6 % (2-11); Neutrophils Percent Auto 73.8 % (45-73); Platelet Count 235 X10*3/uL (160-400); Red Blood Count 4.87 X10*6/uL (4.60-5.80); Red Cell Distribution Width 12.4 % (11.0-16.0); White Blood Count 5.4 X10*3/uL (4.8-10.8)
[2024-05-13 16:02] LABS: Appearance Urine Clear; Color Urine Yellow; Glucose Urine UA Negative (Negative); Leukocyte Esterase Urine Negative (Negative); Nitrite Urine Negative (Negative); Specific Gravity - Urine <= 1.005 (1.005-1.025); Urine Blood Negative (Negative); Urine Ketones Trace mg/dL (Negative); Urine Protein Negative (Neg-Trace)
[2024-05-13 16:12] LABS: Amphetamine Screen Urine Not Detected (Not Detect); Barbiturates, Urine Not Detected (Not Detect); Benzodiazepines Screen Urine Not Detected (Not Detect); Buprenorphine Scr Not Detected (Not Detect); Cannabinoid Screen Urine POSITIVE (Not Detect); Cocaine Screen Urine Not Detected (Not Detect); Fentanyl, urine Not Detected (Not Detect); Methadone Screen, Urine Not Detected (Not Detect); Opiate Screen Urine Not Detected (Not Detect); Oxycodone Screen Urine Not Detected (Not Detect); Phencyclidine Screen Urine Not Detected (Not Detect)
[2024-05-13 16:25] LABS: Alanine Aminotransferase 19 U/L (0-40); Albumin Level 4.6 g/dL (3.5-5.0); Anion Gap 14 (12-20); Aspartate Amino Transferase 57 U/L (5-37); Bilirubin Direct 0.2 mg/dL (0.0-0.5); Bilirubin Total 0.4 mg/dL (0.0-1.0); Blood Urea Nitrogen 4 mg/dL (9-16); Calcium 9.7 mg/dL (8.4-10.2); Carbon Dioxide 25 mmol/L (22-29); Chloride 106 mmol/L (96-108); Creatinine Clr Calc Pharmacy 105.2; Estimated Glomerular Filt Rate > 60; Ethanol < 10 mg/dL; Glucose Random 148 mg/dL (60-115); Magnesium 2.1 mg/dL (1.6-2.6); Potassium 3.2 mmol/L (3.3-5.1); Sodium 142 mmol/L (135-145); Total Protein 7.5 g/dL (6.5-8.0)
[2024-05-13 17:02] LABS: Alkaline Phosphatase 104 U/L (39-117)
--- NOTE | 2024-05-13 18:24 | PC.NURSE ---
Unable to verify what medications pt is supposed to be on. Pt also declined potassium
--- NOTE | 2024-05-13 19:06 | PC.NURSE ---
patient appears to remain at rest at present respirations are even and unlabored patient appears in no distress
[2024-05-13 22:36] VITALS: BP 159/90; PULSE 94; RESP 18; TEMP 36.7; O2SAT 96
--- NOTE | 2024-05-14 01:52 | PC.ADMIT ---
Patient is a 24yr old male admitted to at 2020 from [facility] Pod on a 12B for treatment of anxiety and paranoia d/t med non compliance for reportedly 4 days. Patient has a hx of Schizophrenia and lives with his mother and younger brother in an apartment. Mother worried and called EMS. Patients last IPLOC was here in August of this year when his mother called 911 for patients aggressive behavior towards his younger brother. Patient reportedly agitated in the ED and was administered oral zyprexa and 2mg Lorazepam. Patient was difficult to wake in the Pod for transport and was slightly unsteady getting into the wheelchair for transport. Upon arrival to patient sat in a chair, attempted to sleep, and wouldn't respond to questions and wasnt cooperative. Vitals were taken, skin check administered. RN attempted to have him sign at least one release for contact information but he could barely initial or sign the page. RN assisted patient to his room and he slept throughout the night. Patient is on 5 minute safety checks.
[2024-05-14 07:30] VITALS: BP 113/55; PULSE 82; RESP 16; TEMP 36.4; O2SAT 100
--- NOTE | 2024-05-14 09:04 | P.HPPS_ITS ---
HPI Date of Service: 05/14/24 Chief Complaint: psychosis Sources of Information: patient interviewed, chart reviewed and crisis/core team assessment reviewed HPI Subjective Notes: Chau Warning and Conditional Voluntary Narrative: Patient is a 24-year-old male with history of schizophrenia and PTSD who presented to [facility] [place] due to concern of decompensation secondary to medication noncompliance. Per crisis report, patient's mother reports patient has been presenting with paranoia, delusions, auditory and visual hallucinations along with catholic preoccupation and increased anxiety. He has not been taking his medications for the past 2 months due to not following up with his patient believes that something is growing in his body and that he needs to be baptized . Patient stated, I feel like I am spider no, that I have spiders in me and a snake . Patient presented disorganized and tangential. Religiously preoccupied. Denied SI/HI. Patient's mother reports he does well when he is medication compliant. During admission assessment, patient presents alert and oriented x3. calm and cooperative. Patient stated, my mom brought me here because she is against my ways. I just want the best for her. I feel like my insides are not clean. We're all sinners. She does not accept God as much as I do. She will not even go to rastafari with me. I just want to get baptized . Patient reports he believes he smells internally ; Patient stated, I do not know what is inside of me that smells. It has been like that all my life. I need a yazdanism . Patient reports he has not been taking his medications due to running out of his medications. He can not recall the name of his outpatient psychiatric provider. Patient reports that he is agreeable with restarting his medications. denies SI/HI/VH/AH. Past Psychiatric History: hosps: 2 prior SA: denies SIB: denies outpt: was recently at [facility] but reports his status there has lapsed due to too many no-shows. PTSD Dx Psychotic Disorder Dx Medical Evaluation Reviewed: Yes [facility] Medical History Schizophrenia No known health problems Family History: father - substance use disorder. opiates. mother - anxiety and depression Social History: Lives with mother and brother. Single. No kids. completed 10th grade. Substance History: Pt reports smoking marijuana every other day. Utox positive for THC. Trauma History: yes Diagnostics Vital Signs (24Hr): Vital Signs - 24 hr 05/13/24 15:09 05/13/24 15:31 05/13/24 22:36 Temperature 99.1 F 98.0 F Pulse Rate 120 H 94 Respiratory Rate 16 16 18 Blood Pressure 140/94 H 159/90 H Pulse Oximetry 100 96 Oxygen Delivery Method Room Air Room Air 05/14/24 07:30 Temperature 97.6 F Pulse Rate 82 Respiratory Rate 16 Blood Pressure 113/55 L Pulse Oximetry 100 Oxygen Delivery Method Room Air BMI result Body Mass Index 17.7 Labs 05/13/24 15:51 05/13/24 15:51 Labs: Laboratory Results - last 48 hr 05/13/24 05/13/24 15:51 15:55 WBC 5.4 RBC 4.87 Hgb 15.6 Hct 43.8 MCV 89.9 MCH 32.0 MCHC 35.6 RDW 12.4 Plt Count 235 MPV 10.6 Immature Gran % (Auto) 0.2 Neut % (Auto) 73.8 H Lymph % (Auto) 14.2 L [place] % (Auto) 9.6 Eos % (Auto) 1.3 Baso % (Auto) 0.9 Lymph # (Auto) 0.8 L [place] # (Auto) 0.5 Eos # (Auto) 0.1 Baso # (Auto) 0.1 Abs Immat Gran (auto) 0.01 Absolute Neuts (auto) 4.0 Absolute Nucleated RBC 0.000 Nucleated RBC % (auto) 0.0 Sodium 142 Potassium 3.2 L Chloride 106 Carbon Dioxide 25 Anion Gap 14 BUN 4 L Creatinine 0.84 Estim Creat Clear Calc 105.2 Estimated GFR > 60 Random Glucose 148 H Calcium 9.7 Magnesium 2.1 Total Bilirubin 0.4 Direct Bilirubin 0.2 AST 57 H ALT 19 Alkaline Phosphatase 104 Total Protein 7.5 Albumin 4.6 Urine Color Yellow Urine Appearance Clear Urine pH 7.0 Ur Specific [place] <= 1.005 Urine Protein Negative Urine Glucose (UA) Negative Urine Ketones Trace Urine Blood Negative Urine Nitrite Negative Ur Leukocyte Esterase Negative Urine Opiates Screen Not Detected Ur Buprenorphine Scrn Not Detected Ur Oxycodone Screen Not Detected Urine Methadone Screen Not Detected Urine Fentanyl Screen Not Detected Ur Barbiturates Screen Not Detected Ur Phencyclidine Scrn Not Detected Ur Amphetamines Screen Not Detected U Benzodiazepines Scrn Not Detected Urine Cocaine Screen Not Detected U Marijuana (THC) Screen POSITIVE H Ethyl Alcohol < 10 Meds/Allergies Allergies Allergies Allergy/AdvReac Type Severity Reaction Status Date / Time lactase [From Dairy Aid] AdvReac Rash Verified 05/13/24 15:17 Pork/Porcine Containing AdvReac Nausea Verified 05/13/24 15:17 Products Mental Status Exam Mental Status Exam Narrative: Pt is alert and oriented; behavior is cooperative, calm; dressed in hospital attire; mood is described as okay ; eye contact appropriate; Speech is normal rate, volume and not pressured; thought process is organized; paranoid. denies SI/HI/VH/AH Assessment & Plan Assessment & Plan (1) Schizophrenia: Status: Acute Qualifiers: Schizophrenia type: unspecified Qualified Code(s): F20.9 - Schizophrenia, unspecified Code(s): F20.9 - Schizophrenia, unspecified (2) PTSD (post-traumatic stress disorder): Status: Acute Code(s): F43.10 - Post-traumatic stress disorder, unspecified Plan Patient is a 24-year-old male with history of schizophrenia and PTSD who presented to [facility] [place] ambulance due to concern of decompensation secondary to medication noncompliance. Plan: CV 15 minute safety checks Restart home medication Obtain collateral Encourage groups Discharge planning Patient educated on: diagnosis and medication risk/benefits Reason for continued inpatient stay Substantial Risk for: med/psych decompensation Statement Statement: I have reviewed the history and physical and performed a pertinent examination on my patient. No changes have occurred unless specified. If the History and Physical was not performed prior to admission, the Hospitalist's service will be consulted for completing the admission physical. Time Spent With Patient Time: Total time managing care of this patient today _60___ minutes.
[2024-05-14] MEDS: OLANZapine 5 MG TABLET PO (10:05)
[2024-05-14 20:00] VITALS: BP 115/50; PULSE 77; RESP 14; TEMP 37.4; O2SAT 96
[2024-05-14] MEDS: OLANZapine 10 MG TABLET PO (20:57)
[2024-05-15 07:43] VITALS: BP 142/97; PULSE 88; RESP 16; TEMP 36.3; O2SAT 99
--- NOTE | 2024-05-15 09:33 | P.PNPSI_ITS ---
Subjective Subjective Date of Service: 05/15/24 Reason For Visit: psychosis Subjective Notes: 3 Day Interim History: Active on unit, social with peers. medication compliant. Pt reports feeling good today; pt stated, I'm not worried as much as smelling on the inside. I think the medication is working . Pt denies SI/HI/VH/AH. per nursing, pt slept 8 hours. 3 day up on 05/19/24. Medication Compliance: Yes Side effects from medications: No Review of Systems Constitutional: Reports as per HPI Eyes: Reports as per HPI Reports as per HPI Cardiovascular: Reports as per HPI Respiratory: Reports as per HPI Gastrointestinal: Reports as per HPI Genitourinary: Reports as per HPI Musculoskeletal: Reports as per HPI Skin/Breast: Reports as per HPI Reports as per HPI Psychiatric: Reports as per HPI Endocrine: Reports as per HPI Hematologic/Lymphatic: Reports as per HPI Allergic/Immunologic: Reports as per HPI Mental Status Exam Mental Status Exam Narrative: Pt is alert and oriented; behavior is cooperative, calm; dressed in hospital attire; mood is described as good ; eye contact appropriate; Speech is normal rate, volume and not pressured; thought process is organized; some paranoia but improving. denies SI/HI/VH/AH Diagnostics Vital Signs (24Hr): Vital Signs - 24 hr 05/14/24 20:00 05/15/24 07:43 Temperature 99.3 F 97.3 F Pulse Rate 77 88 Respiratory Rate 14 16 Blood Pressure 115/50 L 142/97 H Pulse Oximetry 96 99 Oxygen Delivery Method Room Air Room Air BMI result Body Mass Index 17.7 Labs 05/13/24 15:51 05/13/24 15:51 Labs: Laboratory Results - last 48 hr 05/13/24 05/13/24 15:51 15:55 WBC 5.4 RBC 4.87 Hgb 15.6 Hct 43.8 MCV 89.9 MCH 32.0 MCHC 35.6 RDW 12.4 Plt Count 235 MPV 10.6 Immature Gran % (Auto) 0.2 Neut % (Auto) 73.8 H Lymph % (Auto) 14.2 L [place] % (Auto) 9.6 Eos % (Auto) 1.3 Baso % (Auto) 0.9 Lymph # (Auto) 0.8 L [place] # (Auto) 0.5 Eos # (Auto) 0.1 Baso # (Auto) 0.1 Abs Immat Gran (auto) 0.01 Absolute Neuts (auto) 4.0 Absolute Nucleated RBC 0.000 Nucleated RBC % (auto) 0.0 Sodium 142 Potassium 3.2 L Chloride 106 Carbon Dioxide 25 Anion Gap 14 BUN 4 L Creatinine 0.84 Estim Creat Clear Calc 105.2 Estimated GFR > 60 Random Glucose 148 H Calcium 9.7 Magnesium 2.1 Total Bilirubin 0.4 Direct Bilirubin 0.2 AST 57 H ALT 19 Alkaline Phosphatase 104 Total Protein 7.5 Albumin 4.6 Urine Color Yellow Urine Appearance Clear Urine pH 7.0 Ur Specific [place] <= 1.005 Urine Protein Negative Urine Glucose (UA) Negative Urine Ketones Trace Urine Blood Negative Urine Nitrite Negative Ur Leukocyte Esterase Negative Urine Opiates Screen Not Detected Ur Buprenorphine Scrn Not Detected Ur Oxycodone Screen Not Detected Urine Methadone Screen Not Detected Urine Fentanyl Screen Not Detected Ur Barbiturates Screen Not Detected Ur Phencyclidine Scrn Not Detected Ur Amphetamines Screen Not Detected U Benzodiazepines Scrn Not Detected Urine Cocaine Screen Not Detected U Marijuana (THC) Screen POSITIVE H Ethyl Alcohol < 10 Medications Medications Current Medications Acetaminophen (Acetaminophen 325 Mg Tablet) 650 mg PO Q6H PRN PRN Reason: Headache/Pain Mild Scale (1-3) Al Hydroxide/Mg Hydroxide (Magnesium Hydrox/Alum Hydrox 30 Ml Oral.Susp) 30 ml PO Q6H PRN PRN Reason: Heartburn/Nausea Hydroxyzine HCl (Hydroxyzine Hcl 25 Mg Tablet) 25 mg PO Q6H PRN PRN Reason: Anxiety Magnesium Hydroxide (Milk Of Magnesia 30 Ml Oral.Susp) 30 ml PO DAILY PRN PRN Reason: Constipation Olanzapine (Olanzapine 10 Mg Tablet) 10 mg PO BEDTIME MARINA Last Admin: 05/14/24 20:57 Dose: 10 mg Olanzapine (Olanzapine 5 Mg Tablet) 5 mg PO Q4H PRN PRN Reason: Psychosis Last Admin: 05/14/24 10:05 Dose: 5 mg Trazodone HCl (Trazodone Hcl 50 Mg Tablet) 50 mg PO BEDTIME MRX1 PRN PRN Reason: Insomnia Allergies Allergies Allergy/AdvReac Type Severity Reaction Status Date / Time lactase [From Dairy Aid] AdvReac Rash Verified 05/13/24 15:17 Pork/Porcine Containing AdvReac Nausea Verified 05/13/24 15:17 Products Assessment & Plan Assessment & Plan (1) Schizophrenia: Qualifiers: Schizophrenia type: unspecified Qualified Code(s): F20.9 - Schizophrenia, unspecified Status: Acute Code(s): F20.9 - Schizophrenia, unspecified (2) PTSD (post-traumatic stress disorder): Status: Acute Code(s): F43.10 - Post-traumatic stress disorder, unspecified Plan Patient is a 24-year-old male with history of schizophrenia and PTSD who presented to [facility] via ambulance due to concern of decompensation secondary to medication noncompliance. Plan: CV 15 minute safety checks Restart home medication Obtain collateral Encourage groups Discharge planning 05/15: Active on unit, social with peers. medication compliant. Pt reports feeling good today; pt stated, I'm not worried as much as smelling on the inside. I think the medication is working . Pt denies SI/HI/VH/AH. per nursing, pt slept 8 hours. 3 day up on 05/19/24. Continue current tx plan. Patient educated on: diagnosis and medication risk/benefits Reason for continued inpatient stay Substantial Risk for: med/psych decompensation Time Spent With Patient Time: Total time managing care of this patient today _20___ minutes.
[2024-05-15] MEDS: OLANZapine 5 MG TABLET PO (14:41)
[2024-05-15 20:00] VITALS: BP 127/84; PULSE 102; RESP 14; TEMP 36.4; O2SAT 98
[2024-05-15] MEDS: OLANZapine 10 MG TABLET PO (21:45)
[2024-05-16] MEDS: hydrOXYzine HCL 25 MG TABLET PO ×2 (03:57→21:12)
--- NOTE | 2024-05-16 07:40 | HO.PSYCHPN ---
Subjective Subjective Date of Service: 05/16/24 Reason For Visit: psychosis Interim History: Active on unit, social with peers. medication compliant. Slept 6 hours last night. Still poor boundaries at times. With feature writer reports he had some increased dreaming and would like to try prazosin. Overall reports feeling mood is good, much less anxiety, denies SI or HI or psychosis. Reports feeling positive regarding current treatment plan and looking forward to discharge when three-day notice expires. Medication Compliance: Yes Side effects from medications: No Attending Groups: Intermittent Review of Systems Acute medical concerns: No Review of Systems Review of Systems Unremarkable Mental Status Exam Mental Status Exam Narrative: Pt is alert and oriented; behavior is cooperative, calm; dressed in hospital attire; mood is described as good ; eye contact appropriate; Speech is normal rate, volume and not pressured; thought process is organized; some paranoia but improving. denies SI/HI/VH/AH Diagnostics Vital Signs (24Hr): Vital Signs - 24 hr 05/15/24 07:43 05/15/24 20:00 Temperature 97.3 F 97.6 F Pulse Rate 88 102 H Respiratory Rate 16 14 Blood Pressure 142/97 H 127/84 Pulse Oximetry 99 98 Oxygen Delivery Method Room Air Room Air BMI result Body Mass Index 17.7 Labs 05/13/24 15:51 05/13/24 15:51 Medications Medications Current Medications Acetaminophen (Acetaminophen 325 Mg Tablet) 650 mg PO Q6H PRN PRN Reason: Headache/Pain Mild Scale (1-3) Al Hydroxide/Mg Hydroxide (Magnesium Hydrox/Alum Hydrox 30 Ml Oral.Susp) 30 ml PO Q6H PRN PRN Reason: Heartburn/Nausea Hydroxyzine HCl (Hydroxyzine Hcl 25 Mg Tablet) 25 mg PO Q6H PRN PRN Reason: Anxiety Last Admin: 05/16/24 03:57 Dose: 25 mg Magnesium Hydroxide (Milk Of Magnesia 30 Ml Oral.Susp) 30 ml PO DAILY PRN PRN Reason: Constipation Olanzapine (Olanzapine 10 Mg Tablet) 10 mg PO BEDTIME MARINA Last Admin: 05/15/24 21:45 Dose: 10 mg Olanzapine (Olanzapine 5 Mg Tablet) 5 mg PO Q4H PRN PRN Reason: Psychosis Last Admin: 05/15/24 14:41 Dose: 5 mg Trazodone HCl (Trazodone Hcl 50 Mg Tablet) 50 mg PO BEDTIME MRX1 PRN PRN Reason: Insomnia Allergies Allergies Allergy/AdvReac Type Severity Reaction Status Date / Time lactase [From Dairy Aid] AdvReac Rash Verified 05/13/24 15:17 Pork/Porcine Containing AdvReac Nausea Verified 05/13/24 15:17 Products Assessment & Plan Assessment & Plan (1) Schizophrenia: Qualifiers: Schizophrenia type: unspecified Qualified Code(s): F20.9 - Schizophrenia, unspecified Status: Acute Code(s): F20.9 - Schizophrenia, unspecified (2) PTSD (post-traumatic stress disorder): Status: Acute Code(s): F43.10 - Post-traumatic stress disorder, unspecified Plan Patient is a 24-year-old male with history of schizophrenia and PTSD who presented to [facility] via ambulance due to concern of decompensation secondary to medication noncompliance. Plan: CV 15 minute safety checks Restart home medication Obtain collateral Encourage groups Discharge planning 05/15: Active on unit, social with peers. medication compliant. Pt reports feeling good today; pt stated, I'm not worried as much as smelling on the inside. I think the medication is working . Pt denies SI/HI/VH/AH. per nursing, pt slept 8 hours. 3 day up on 05/19/24. Continue current tx plan. 05/16/2024: Add prazosin at bedtime. Ongoing admission in the context of safety evaluation with 3 day notice which on 05/19/2024 Reason for continued inpatient stay Substantial Risk for: inability to function Time Spent With Patient Time: Total time managing care of this patient today ____ minutes.
[2024-05-16 08:52] VITALS: BP 152/82; PULSE 75; RESP 18; TEMP 36.1; O2SAT 98
[2024-05-16] MEDS: OLANZapine 5 MG TABLET PO (11:08)
[2024-05-16 11:09] VITALS: BP 162/82
[2024-05-16 20:00] VITALS: BP 137/74; PULSE 91; RESP 18; TEMP 36.4; O2SAT 99
[2024-05-16 21:11] VITALS: BP 137/74
[2024-05-16] MEDS: OLANZapine 10 MG TABLET PO (21:11)
[2024-05-16] MEDS: Prazosin HCL 1 MG CAPSULE PO (21:11)
[2024-05-17 08:00] VITALS: BP 107/52; PULSE 76; RESP 16; TEMP 36.7; O2SAT 99
--- NOTE | 2024-05-17 10:16 | HO.PSYCHPN ---
Subjective Subjective Date of Service: 05/17/24 Reason For Visit: psychosis Subjective Notes: 3 Day Interim History: Active on unit, social with peers. medication compliant. Prazosin helpful for dreams and sleep. Describes mood as good, and no anxiety, denies SI or HI or psychosis. Reports feeling positive regarding current treatment plan and looking forward to discharge when three-day notice expires. Medication Compliance: Yes Side effects from medications: No Attending Groups: Yes Review of Systems Acute medical concerns: No Review of Systems Review of Systems Unremarkable Mental Status Exam Mental Status Exam Narrative: Pt is alert and oriented; behavior is cooperative, calm; dressed in hospital attire; mood is described as good ; eye contact appropriate; Speech is normal rate, volume and not pressured; thought process is organized; no overt psychosis. Denies SI/HI/VH/AH Diagnostics Vital Signs (24Hr): Vital Signs - 24 hr 05/16/24 11:09 05/16/24 20:00 05/16/24 21:11 Temperature 97.5 F Pulse Rate 91 Respiratory Rate 18 Blood Pressure 162/82 H 137/74 137/74 Pulse Oximetry 99 Oxygen Delivery Method Room Air 05/17/24 08:00 Temperature 98.1 F Pulse Rate 76 Respiratory Rate 16 Blood Pressure 107/52 L Pulse Oximetry 99 Oxygen Delivery Method Room Air BMI result Body Mass Index 17.7 Labs 05/13/24 15:51 05/13/24 15:51 Medications Medications Current Medications Acetaminophen (Acetaminophen 325 Mg Tablet) 650 mg PO Q6H PRN PRN Reason: Headache/Pain Mild Scale (1-3) Al Hydroxide/Mg Hydroxide (Magnesium Hydrox/Alum Hydrox 30 Ml Oral.Susp) 30 ml PO Q6H PRN PRN Reason: Heartburn/Nausea Hydroxyzine HCl (Hydroxyzine Hcl 25 Mg Tablet) 25 mg PO Q6H PRN PRN Reason: Anxiety Last Admin: 05/16/24 21:12 Dose: 25 mg Magnesium Hydroxide (Milk Of Magnesia 30 Ml Oral.Susp) 30 ml PO DAILY PRN PRN Reason: Constipation Olanzapine (Olanzapine 10 Mg Tablet) 10 mg PO BEDTIME MARINA Last Admin: 05/16/24 21:11 Dose: 10 mg Olanzapine (Olanzapine 5 Mg Tablet) 5 mg PO Q4H PRN PRN Reason: Psychosis Last Admin: 05/16/24 11:08 Dose: 5 mg Prazosin HCl (Prazosin Hcl 1 Mg Capsule) 1 mg PO BEDTIME MARINA; Protocol Last Admin: 05/16/24 21:11 Dose: 1 mg Trazodone HCl (Trazodone Hcl 50 Mg Tablet) 50 mg PO BEDTIME MRX1 PRN PRN Reason: Insomnia Allergies Allergies Allergy/AdvReac Type Severity Reaction Status Date / Time lactase [From Dairy Aid] AdvReac Rash Verified 05/13/24 15:17 Pork/Porcine Containing AdvReac Nausea Verified 05/13/24 15:17 Products Assessment & Plan Assessment & Plan (1) Schizophrenia: Qualifiers: Schizophrenia type: unspecified Qualified Code(s): F20.9 - Schizophrenia, unspecified Status: Acute Code(s): F20.9 - Schizophrenia, unspecified (2) PTSD (post-traumatic stress disorder): Status: Acute Code(s): F43.10 - Post-traumatic stress disorder, unspecified Plan Patient is a 24-year-old male with history of schizophrenia and PTSD who presented to [facility] [place] due to concern of decompensation secondary to medication noncompliance. Plan: CV 15 minute safety checks Restart home medication Obtain collateral Encourage groups Discharge planning 05/15: Active on unit, social with peers. medication compliant. Pt reports feeling good today; pt stated, I'm not worried as much as smelling on the inside. I think the medication is working . Pt denies SI/HI/VH/AH. per nursing, pt slept 8 hours. 3 day up on 05/19/24. Continue current tx plan. 05/16/2024: Add prazosin at bedtime. Ongoing admission in the context of safety evaluation with 3 day notice which on 05/19/202405/17: no changes to above Reason for continued inpatient stay Substantial Risk for: rapid decompensation Time Spent With Patient Time: Total time managing care of this patient today ____ minutes.
[2024-05-17 19:32] VITALS: BP 158/77; PULSE 86; RESP 18; TEMP 36.3; O2SAT 100
[2024-05-17] MEDS: Prazosin HCL 1 MG CAPSULE PO (20:00)
[2024-05-17] MEDS: OLANZapine 10 MG TABLET PO (20:01)
[2024-05-18 08:00] VITALS: BP 115/70; PULSE 85; RESP 14; TEMP 36.2; O2SAT 100
--- NOTE | 2024-05-18 10:58 | HO.PSYCHPN ---
Subjective Subjective Date of Service: 05/18/24 Reason For Visit: psychosis Subjective Notes: 3 Day Interim History: Active on unit, social with peers. attending groups. medication compliant. 3 day up on 05/19/24. Patient reports feeling good and looking forward to going home . Pt reports he plans on continuing to take his medications and plans on following up with his outpatient providers. denies SI/HI/VH/AH. Medication Compliance: Yes Side effects from medications: No Attending Groups: Yes Review of Systems Constitutional: Reports as per HPI Eyes: Reports as per HPI Reports as per HPI Cardiovascular: Reports as per HPI Respiratory: Reports as per HPI Gastrointestinal: Reports as per HPI Genitourinary: Reports as per HPI Musculoskeletal: Reports as per HPI Skin/Breast: Reports as per HPI Reports as per HPI Psychiatric: Reports as per HPI Endocrine: Reports as per HPI Hematologic/Lymphatic: Reports as per HPI Allergic/Immunologic: Reports as per HPI Mental Status Exam Mental Status Exam Narrative: Pt is alert and oriented; behavior is cooperative and calm; dressed in casual attire; mood is described as good ; eye contact appropriate; Speech is normal rate, volume and not pressured; thought process is organized; Thought content is on discharge; denies SI/HI/VH/AH. Diagnostics Vital Signs (24Hr): Vital Signs - 24 hr 05/17/24 19:32 05/18/24 08:00 Temperature 97.3 F 97.2 F Pulse Rate 86 85 Respiratory Rate 18 14 Blood Pressure 158/77 H 115/70 Pulse Oximetry 100 100 Oxygen Delivery Method Room Air Room Air BMI result Body Mass Index 17.7 Labs 05/13/24 15:51 05/13/24 15:51 Medications Medications Current Medications Acetaminophen (Acetaminophen 325 Mg Tablet) 650 mg PO Q6H PRN PRN Reason: Headache/Pain Mild Scale (1-3) Al Hydroxide/Mg Hydroxide (Magnesium Hydrox/Alum Hydrox 30 Ml Oral.Susp) 30 ml PO Q6H PRN PRN Reason: Heartburn/Nausea Hydroxyzine HCl (Hydroxyzine Hcl 25 Mg Tablet) 25 mg PO Q6H PRN PRN Reason: Anxiety Last Admin: 05/16/24 21:12 Dose: 25 mg Magnesium Hydroxide (Milk Of Magnesia 30 Ml Oral.Susp) 30 ml PO DAILY PRN PRN Reason: Constipation Olanzapine (Olanzapine 10 Mg Tablet) 10 mg PO BEDTIME MARINA Last Admin: 05/17/24 20:01 Dose: 10 mg Olanzapine (Olanzapine 5 Mg Tablet) 5 mg PO Q4H PRN PRN Reason: Psychosis Last Admin: 05/16/24 11:08 Dose: 5 mg Prazosin HCl (Prazosin Hcl 1 Mg Capsule) 1 mg PO BEDTIME MARINA; Protocol Last Admin: 05/17/24 20:00 Dose: 1 mg Trazodone HCl (Trazodone Hcl 50 Mg Tablet) 50 mg PO BEDTIME MRX1 PRN PRN Reason: Insomnia Allergies Allergies Allergy/AdvReac Type Severity Reaction Status Date / Time lactase [From Dairy Aid] AdvReac Rash Verified 05/13/24 15:17 Pork/Porcine Containing AdvReac Nausea Verified 05/13/24 15:17 Products Assessment & Plan Assessment & Plan (1) Schizophrenia: Qualifiers: Schizophrenia type: unspecified Qualified Code(s): F20.9 - Schizophrenia, unspecified Status: Acute Code(s): F20.9 - Schizophrenia, unspecified (2) PTSD (post-traumatic stress disorder): Status: Acute Code(s): F43.10 - Post-traumatic stress disorder, unspecified Plan Patient is a 24-year-old male with history of schizophrenia and PTSD who presented to [facility] via ambulance due to concern of decompensation secondary to medication noncompliance. Plan: CV 15 minute safety checks Restart home medication Obtain collateral Encourage groups Discharge planning 05/15: Active on unit, social with peers. medication compliant. Pt reports feeling good today; pt stated, I'm not worried as much as smelling on the inside. I think the medication is working . Pt denies SI/HI/VH/AH. per nursing, pt slept 8 hours. 3 day up on 05/19/24. Continue current tx plan. 05/16/2024: Add prazosin at bedtime. Ongoing admission in the context of safety evaluation with 3 day notice which on 05/19/202405/17: no changes to above 05/18: Active on unit, social with peers. attending groups. medication compliant. 3 day up on 05/19/24. Patient reports feeling good and looking forward to going home . Pt reports he plans on continuing to take his medications and plans on following up with his outpatient providers. denies SI/HI/VH/AH. Patient educated on: diagnosis and medication risk/benefits Reason for continued inpatient stay Substantial Risk for: stable for discharge Time Spent With Patient Time: Total time managing care of this patient today _20___ minutes.
[2024-05-18 20:00] VITALS: BP 134/80; PULSE 101; RESP 16; TEMP 36.3; O2SAT 99
[2024-05-18] MEDS: Prazosin HCL 1 MG CAPSULE PO (20:31)
[2024-05-18] MEDS: OLANZapine 10 MG TABLET PO (20:31)
[2024-05-18] MEDS: hydrOXYzine HCL 25 MG TABLET PO (20:39)
[2024-05-18] MEDS: OLANZapine 5 MG TABLET PO (22:48)
[2024-05-19 08:00] VITALS: BP 117/63; PULSE 96; RESP 16; TEMP 36.6; O2SAT 99
--- NOTE | 2024-05-19 09:14 | PM.PSYDC ---
DS: Providers Provider Date of Service: 05/19/24 Date of admission: 05/13/24 19:10 Date of discharge: 05/19/24 Primary care physician: Tami Skinner MD Admitting clinician: Katie Salas Attending physician on admission: Adolfo Goodson Attending physician on discharge: Adolfo Goodson Discharging clinician: Katie Salas DS: Diagnosis Discharge Diagnosis (1) Schizophrenia: Status: Acute (2) PTSD (post-traumatic stress disorder): Status: Acute DS: Medications Discharge Medications Home Medications: Previous Rx's ?Medication ?Instructions ?Recorded olanzapine 10 mg tablet 10 mg PO BEDTIME 30 days #30 tabs 05/18/24 prazosin 1 mg capsule 1 mg PO BEDTIME 30 days #30 caps 05/18/24 Mental Status Exam Mental Status Exam Narrative: Pt is alert and oriented; behavior is cooperative and calm; dressed in casual attire; mood is described as good ; eye contact appropriate; Speech is normal rate, volume and not pressured; thought process is organized; Thought content is on discharge; denies SI/HI/VH/AH. Data Data Completed and Pending Completed studies during hospitalization [Text1]: 05/13/24 05/13/24 15:51 15:55 WBC 5.4 RBC 4.87 Hgb 15.6 Hct 43.8 MCV 89.9 MCH 32.0 MCHC 35.6 RDW 12.4 Plt Count 235 MPV 10.6 Immature Gran % (Auto) 0.2 Neut % (Auto) 73.8 H Lymph % (Auto) 14.2 L [place] % (Auto) 9.6 Eos % (Auto) 1.3 Baso % (Auto) 0.9 Lymph # (Auto) 0.8 L [place] # (Auto) 0.5 Eos # (Auto) 0.1 Baso # (Auto) 0.1 Abs Immat Gran (auto) 0.01 Absolute Neuts (auto) 4.0 Absolute Nucleated RBC 0.000 Nucleated RBC % (auto) 0.0 Sodium 142 Potassium 3.2 L Chloride 106 Carbon Dioxide 25 Anion Gap 14 BUN 4 L Creatinine 0.84 Estim Creat Clear Calc 105.2 Estimated GFR > 60 Random Glucose 148 H Calcium 9.7 Magnesium 2.1 Total Bilirubin 0.4 Direct Bilirubin 0.2 AST 57 H ALT 19 Alkaline Phosphatase 104 Total Protein 7.5 Albumin 4.6 Urine Color Yellow Urine Appearance Clear Urine pH 7.0 Ur Specific [place] <= 1.005 Urine Protein Negative Urine Glucose (UA) Negative Urine Ketones Trace Urine Blood Negative Urine Nitrite Negative Ur Leukocyte Esterase Negative Urine Opiates Screen Not Detected Ur Buprenorphine Scrn Not Detected Ur Oxycodone Screen Not Detected Urine Methadone Screen Not Detected Urine Fentanyl Screen Not Detected Ur Barbiturates Screen Not Detected Ur Phencyclidine Scrn Not Detected Ur Amphetamines Screen Not Detected U Benzodiazepines Scrn Not Detected Urine Cocaine Screen Not Detected U Marijuana (THC) Screen POSITIVE H Ethyl Alcohol < 10 DS: Summary Hospital Course Hospital Course: Patient is a 24-year-old male with history of schizophrenia and PTSD who presented to [facility] via ambulance due to concern of decompensation secondary to medication noncompliance. Per crisis report, patient's mother reports patient has been presenting with paranoia, delusions, auditory and visual hallucinations along with jainism preoccupation and increased anxiety. He has not been taking his medications for the past 2 months due to not following up with his patient believes that something is growing in his body and that he needs to be baptized . Patient stated, I feel like I am spider no, that I have spiders in me and a snake . Patient presented disorganized and tangential. Religiously preoccupied. Denied SI/HI. Patient's mother reports he does well when he is medication compliant. During admission assessment, patient presents alert and oriented x3. calm and cooperative. Patient stated, my mom brought me here because she is against my ways. I just want the best for her. I feel like my insides are not clean. We're all sinners. She does not accept God as much as I do. She will not even go to method[facility] with me. I just want to get baptized . Patient reports he believes he smells internally ; Patient stated, I do not know what is inside of me that smells. It has been like that all my life. I need a adventist . Patient reports he has not been taking his medications due to running out of his medications. He can not recall the name of his outpatient psychiatric provider. Patient reports that he is agreeable with restarting his medications. denies SI/HI/VH/AH. Plan: CV 15 minute safety checks Restart home medication Obtain collateral Encourage groups Discharge planning Active on unit, social with peers. medication compliant. Pt reports feeling good today; pt stated, I'm not worried as much as smelling on the inside. I think the medication is working . Pt denies SI/HI/VH/AH. per nursing, pt slept 8 hours. 3 day up on 05/19/24. Continue current tx plan. Add prazosin at bedtime. Ongoing admission in the context of safety evaluation with 3 day notice which on 05/19/2024 Active on unit, social with peers. attending groups. medication compliant. 3 day up on 05/19/24. Patient reports feeling good and looking forward to going home . Pt reports he plans on continuing to take his medications and plans on following up with his outpatient providers. denies SI/HI/VH/AH. Time spent discussing smoking cessation with patient: 3 to 10 minutes Status at Discharge Cognitive/behavioral status at discharge: Patient was interviewed prior to discharge and found to be fully oriented and without SI or HI. Patient has insight and demonstrates good judgment in terms of wanting to pursue treatment. Patient has a safety plan that includes presenting to the closest ER or calling 911 if feeling unsafe. Functional status at discharge: independent ambulation Overall status at discharge: patient is back to baseline Time Spent with Patient Time attestation: Total time managing care of this patient today _20___ minutes. Time spent: Less than 30 minutes Discharge Plan Discharge Anticipated Discharge Date/Time: 05/19/24 11:00 Patient Disposition: Home, Self-Care Discharge Diagnosis: Schizophrenia, PTSD Referrals: [facility] walk in clinic [Other] - 1 Week (walk in hours are 10am-12pm Saturday-Saturday) Tami Skinner MD [Primary Care Provider] - 1 Week (05-19-24 contacted your primary care provider. They will contact you directly to schedule your follow up appt.) Discharge Medications: New prazosin 1 mg Capsule 1 mg PO BEDTIME 30 Days Qty: 30 0RF Protocol: Hold for SBP< HOLD for SBP < : 90 Continued olanzapine 10 mg Tablet 10 mg PO BEDTIME 30 Days Qty: 30 0RF Discharge Orders: Discharge Order (Routine); Ordered 05/19/24 Ordered By: Katie Salas Diet: Regular diet Activity on Discharge: As tolerated Stand Alone Forms: Patient Portal Discharge page, Community Support Print Language: Bolivian Care Plan Goals: Maintain mood and safe behaviors Take medications as prescribed Practice coping skills Continue with outpatient providers and reach out to them as needed Health Concerns: Mood stability and behaviors Plan of Treatment: Follow up with your PCP, psychiatric provider and other outpatient providers regarding above concerns Take medications as prescribed Assessment: Patient was interviewed prior to discharge and found to be fully oriented and without SI or HI. Patient has insight and demonstrates good judgment in terms of wanting to pursue treatment. Patient has a safety plan that includes presenting to the closest ER or calling 911 if feeling unsafe. Discharge Date/Time: 05/19/24 11:15
--- NOTE | 2024-05-19 11:31 | PC.NURSE ---
Patient easily engaged. Reports he is ready for discharge. Planning to return to home with mother and work on his music. States mood is stable, reports sleep has improved, sleep terrors are gone. Denies depression or sadness. Denies anxiety. Denies SI/HI plan or intent. Denies perceptual disturbances, no overt psychosis or expressed delusions. Denies A/V hallucinations. Aftercare plan reviewed. Appointments reviewed with patient, reports understanding. Medications reviewed, reports understanding. All belongings taken with patient. Crisis numbers provided.
== END 2024-05-19 11:15 | disposition home or self-care (01) | DRG 750 ==
LOC: HO.ED 15:39 → HO.PADLT16 19:18
PROVIDERS: Admitting Provider Psychiatry & Neurology Psychiatry; Emergency Provider Emergency Medicine; PCP Internal Medicine; Responsible Provider Registered Nurse; Visit Provider Psychiatry & Neurology Psychiatry
DX: F20.9 Schizophrenia, unspecified (principal); Z91.148 Patient's other noncompliance with medication regimen for other reason; F43.10 Post-traumatic stress disorder, unspecified; Z79.899 Other long term (current) drug therapy
CPT/HCPCS: 36415; 80048; 80076; 80307; 81003; 83735; 85025; 99285

== ENCOUNTER → 2024-05-13 19:10 | Outpatient (BNV) | payer OTHER, SELFPAY | PROVIDERS: Admitting Provider Psychiatry & Neurology Psychiatry; Emergency Provider Emergency Medicine; PCP Internal Medicine; Responsible Provider Registered Nurse; Visit Provider Registered Nurse | DX: F20.9 Schizophrenia, unspecified (principal); F43.11 Post-traumatic stress disorder, acute | CPT/HCPCS: 90792; 99231; 99232; 99238 ==

== ENCOUNTER 2024-06-03 02:06 | Inpatient (IN) | payer OTHER, SELFPAY ==
[2024-06-03 02:10] VITALS: BMI 18.7
--- NOTE | 2024-06-03 02:19 | ED.PSYCH ---
HPI - Psych General Chief Complaint: Psychiatric Symptoms Stated Complaint: anxiety after smoking weed Time Seen by Provider: 06/03/24 02:17 Source: patient Mode of arrival: ambulatory Limitations: no limitations History of Present Illness ED Provider: HPI Narrative: Patient has been very anxious does have history of schizophrenia and PTSD smoked too much marijuana earlier today comes manic anxious unable to sit still saying that he going to get sliced and diced hallucinating, spitting on staff Related Data Previous Rx's ?Medication ?Instructions ?Recorded olanzapine 10 mg tablet 10 mg PO BEDTIME 30 days #30 tabs 05/18/24 prazosin 1 mg capsule 1 mg PO BEDTIME 30 days #30 caps 05/18/24 Allergies Allergy/AdvReac Type Severity Reaction Status Date / Time lactase [From Dairy Aid] AdvReac Rash Verified 06/03/24 02:18 Pork/Porcine Containing AdvReac Nausea Verified 06/03/24 02:18 Products Review of Systems Review of Systems: Yes Unobtainable due to mental status PMFSH Past Medical History Medical History Schizophrenia No known health problems Social History Social History Household Members: Other Household Members Other:: last report he was living with mother and younger brother in an apartment Housing: Apartment Do you presently have visiting nurse or other home services: No Unable to assess alcohol history related to: Refusing to respond Alcohol intake: current Alcohol intake frequency: does not drink Patient Tobacco Use Status: Never used Tobacco Tobacco use type: Cigar e-Cigarette/Vaping Use: Never Used Second Hand Smoke Exposure: No Substance Use Type: Marijuana Advance Directives: No Do you have a plan to hurt others: No Plan service: No Sexual orientation: Straight/Heterosexual Physical Exam Vital Signs: Vital Signs: Last Vital Signs Pulse 125 H 06/03/24 04:15 Resp 22 H 06/03/24 04:15 BP 100/54 L 06/03/24 04:15 Pulse Ox 96 06/03/24 04:15 O2 Del Method Room Air 06/03/24 04:15 BMI result Body Mass Index 18.7 Appearance: Alert. Manic unable to rest talking to himself Eyes: PERRLA, No Nystagmus ENT: Pharynx normal. Oral Mucosa moist Neck: Normal inspection. Neck supple. CVS: Normal heart rate and rhythm. Pulses normal. Respiratory: No respiratory distress. Equal air entry bilateral, no wheezing/rales/rhonchi Abdomen: Soft and nontender. Bowel sounds are present, no mass palpable, no CVA tenderness Skin: Skin warm and dry. Normal skin color. Normal skin turgor. Extremities: No lower extremity edema. No calf tenderness psych: Very agitated talking to internal voices hallucinating , paranoid Neuro: Oriented X 3. No motor deficit. Medications Administered Discontinued Medications Generic Name Dose Route Start Last Admin Trade Name Freq PRN Reason Stop Dose Admin Diphenhydramine HCl 50 mg 06/03/24 02:33 06/03/24 02:39 Diphenhydramine Hcl 50 Mg/Ml Vial IM 06/03/24 02:34 50 mg ONCE ONE Administration Haloperidol Lactate 5 mg 06/03/24 02:50 06/03/24 02:53 Haloperidol Lactate 5 Mg/Ml Vial IM 06/03/24 02:51 5 mg STAT STA Administration Lorazepam 2 mg 06/03/24 02:17 06/03/24 02:22 Lorazepam 1 Mg Tablet PO 06/03/24 02:18 2 mg ONCE ONE Administration Lorazepam 2 mg 06/03/24 02:33 06/03/24 02:39 Lorazepam 2 Mg/Ml Vial IM 06/03/24 02:34 2 mg STAT STA Administration Olanzapine 10 mg 06/03/24 02:20 06/03/24 02:25 Olanzapine 10 Mg Tablet PO 06/03/24 02:21 10 mg ONCE ONE Administration Medical Decision Making Medical Decision Making [facility] Narrative: Patient has schizoaffective affective disorder with increased psychotic features took marijuana earlier required restrained to get him the medication patient fell sleepy and relax after Haldol and Ativan, will get care team consult for further management Differential Diagnosis Differential Diagnoses: The differential diagnosis associated with the presentation includes Lab Data [facility] Lab Attestation statement: I reviewed the patient's lab results. 06/03/24 04:28 06/03/24 04:28 Labs: Lab Results 06/03/24 Range/Units 04:28 WBC 11.0 H (4.8-10.8) X10*3/uL RBC 4.43 L (4.60-5.80) X10*6/uL Hgb 14.2 (14.0-18.0) g/dl Hct 40.2 L (42.0-52.0) % MCV 90.7 (80.0-98.0) fL MCH 32.1 (27.0-33.0) pg MCHC 35.3 (31.0-36.0) g/dl RDW 12.6 (11.0-16.0) % Plt Count 215 (160-400) X10*3/uL MPV 10.2 (9.4-12.4) fL Immature Gran % (Auto) 0.3 (0.0-0.4) % Neut % (Auto) 90.2 H (45-73) % Lymph % (Auto) 3.7 L (20-40) % [place] % (Auto) 5.3 (2-11) % Eos % (Auto) 0.0 (0-4) % Baso % (Auto) 0.5 (0-2) % Lymph # (Auto) 0.4 L (1.2-4.9) X10*3/uL [place] # (Auto) 0.6 (0.1-1.2) X10*3/uL Eos # (Auto) 0.0 (0.0-0.4) X10*3/uL Baso # (Auto) 0.1 (0.0-0.2) X10*3/uL Abs Immat Gran (auto) 0.03 (0.00-0.03) X10*3/uL Absolute Neuts (auto) 9.9 H (2.0-8.3) x10*3/uL Absolute Nucleated RBC 0.000 (0.0-0.012) X10*3/uL Nucleated RBC % (auto) 0.0 (0.0-0.2) /100WBC Smear Tech's Comments VERIFIED Sodium 141 (135-145) mmol/L Potassium 4.1 D (3.3-5.1) mmol/L Chloride 105 (96-108) mmol/L Carbon Dioxide 25 (22-29) mmol/L Anion Gap 15 (12-20) BUN 21 H (9-16) mg/dL Creatinine 1.12 (0.5-1.4) mg/dL Estim Creat Clear Calc 85.5 Estimated GFR > 60 Random Glucose 121 H (60-115) mg/dL Calcium 9.6 (8.4-10.2) mg/dL Total Bilirubin 0.2 (0.0-1.0) mg/dL AST 25 (5-37) U/L ALT 12 (0-40) U/L Alkaline Phosphatase 77 (39-117) U/L Total Protein 6.6 (6.5-8.0) g/dL Albumin 4.0 (3.5-5.0) g/dL Salicylates < 5.0 L (15-30) mg/dL Acetaminophen < 3 (<30) mcg/mL Ethyl Alcohol < 10 mg/dL Discharge Plan Discharge Clinical Impression: Schizophrenia, Acute psychosis, Marijuana abuse Patient Disposition: Still a Patient Prescriptions: No Action prazosin 1 mg Capsule 1 mg PO BEDTIME 30 Days Qty: 30 0RF Protocol: Hold for SBP< HOLD for SBP < : 90 olanzapine 10 mg Tablet 10 mg PO BEDTIME 30 Days Qty: 30 0RF Interventions: [place]-Suicide Risk Severity Scale Last Done: 06/03/24 03:48 Print Language: Ugandan
[2024-06-03] MEDS: LORazepam 1 MG TABLET 2 MG PO (02:22)
[2024-06-03] MEDS: OLANZapine 10 MG TABLET PO (02:25)
--- NOTE | 2024-06-03 02:27 | PC.NURSE ---
REPEATEDLY STATING, WHY AM I GETTING STABBED INSIDE?
--- NOTE | 2024-06-03 02:30 | PC.NURSE ---
Patient asking for a Bible and specifically the book of Beba to be read. Bible found and appropriate chapter found for patient to assist with calming. This calming technique however did not work. Patient then went on to talk about being crucified and attempting to leave when security was called to bedside to assist in getting patient into the bed.
[2024-06-03 02:39] VITALS: RESP 30
[2024-06-03] MEDS: diphenhydrAMINE HCL 50 MG/ML VIAL IM (02:39)
[2024-06-03] MEDS: LORazepam 2 MG/ML VIAL IM (02:39)
--- NOTE | 2024-06-03 02:40 | PC.NURSE ---
Verified lorazepam injection with Cande RAMIREZ prior to administration of emergent med/
[2024-06-03] MEDS: Haloperidol Lactate 5 MG/ML VIAL IM (02:53)
--- NOTE | 2024-06-03 03:05 | PC.NURSE ---
Patient currently restrained to the bed, security present for staff safety as patientn was attempting to bite and did spit on staff.
--- NOTE | 2024-06-03 03:44 | PC.NURSE ---
Patient asking to be crucified with a needle.
--- NOTE | 2024-06-03 04:11 | PC.NURSE ---
Left arm removed from restraint for trial of behavior. Patient continues to be awake and difficult at this time with staff.
[2024-06-03 04:14] VITALS: BP 100/54; PULSE 125; RESP 22; O2SAT 96
[2024-06-03 04:15] VITALS: BP 100/54; PULSE 125; RESP 22; O2SAT 96
--- NOTE | 2024-06-03 04:30 | PC.NURSE ---
Right arm removed from restraint at thsi time
[2024-06-03 04:33] LABS: Basophils Absolute Auto 0.1 X10*3/uL (0.0-0.2); Basophils Percent Auto 0.5 % (0-2); Hematocrit 40.2 % (42.0-52.0); Hemoglobin 14.2 g/dl (14.0-18.0); Imm Gran Abs Auto 0.03 X10*3/uL (0.00-0.03); Imm Gran Pct Auto 0.3 % (0.0-0.4); Lymphocytes Absolute Auto 0.4 X10*3/uL (1.2-4.9); Lymphocytes Percent Auto 3.7 % (20-40); MANUAL DIFF FLAG SCAN; Mean Corpuscular HGB Conc 35.3 g/dl (31.0-36.0); Mean Corpuscular Hemoglobin 32.1 pg (27.0-33.0); Mean Corpuscular Volume 90.7 fL (80.0-98.0); Mean Platelet Volume 10.2 fL (9.4-12.4); Monocytes Absolute Auto 0.6 X10*3/uL (0.1-1.2); Monocytes Percent Auto 5.3 % (2-11); Neutrophils Absolute Auto 9.9 x10*3/uL (2.0-8.3); Neutrophils Percent Auto 90.2 % (45-73); Platelet Count 215 X10*3/uL (160-400); Red Blood Count 4.43 X10*6/uL (4.60-5.80); Red Cell Distribution Width 12.6 % (11.0-16.0); SCAN SMEAR FLAG 1
--- NOTE | 2024-06-03 04:47 | PC.NURSE ---
patient asked for margarita shane but very paranoid about where it was coming from. Showed patient can and then poured into cup in front of him..
[2024-06-03 04:53] LABS: SLIDE REVIEW VERIFIED
[2024-06-03 04:54] LABS: Acetaminophen LAB < 3 mcg/mL (<30); Alanine Aminotransferase 12 U/L (0-40); Alkaline Phosphatase 77 U/L (39-117); Anion Gap 15 (12-20); Aspartate Amino Transferase 25 U/L (5-37); Bilirubin Total 0.2 mg/dL (0.0-1.0); Blood Urea Nitrogen 21 mg/dL (9-16); Calcium 9.6 mg/dL (8.4-10.2); Carbon Dioxide 25 mmol/L (22-29); Chloride 105 mmol/L (96-108); Creatinine Clr Calc Pharmacy 85.5; Estimated Glomerular Filt Rate > 60; Ethanol < 10 mg/dL; Glucose Random 121 mg/dL (60-115); Potassium 4.1 mmol/L (3.3-5.1); Salicylate < 5.0 mg/dL (15-30); Sodium 141 mmol/L (135-145); Total Protein 6.6 g/dL (6.5-8.0)
--- NOTE | 2024-06-03 06:59 | PC.NURSE ---
Assumed care of patient, patient awake sitting in common area watching t.v
--- NOTE | 2024-06-03 07:23 | PC.NURSE ---
Med rec completed with patient, stating he only takes 2 meds zyprexa and prazosin
--- NOTE | 2024-06-03 10:52 | PHA.MEDREC ---
Pharmacy Consult ? Medication Reconciliation Pharmacy has completed the medication reconciliation. rph reviewed med rec done by nursing
--- NOTE | 2024-06-03 17:47 | PC.NURSE ---
Patient resting comfortably, breathing even and unlabored. Declined vitals signs times multiple attempts stating he wants to sleep
--- NOTE | 2024-06-03 18:23 | PC.NURSE ---
oob eating dinner, gait steady
[2024-06-03 18:34] VITALS: RESP 16
--- NOTE | 2024-06-03 19:00 | PC.NURSE ---
patient appears to remain at rest presently respirations are even and unlabored patient appears in no distress.
[2024-06-04 04:56] VITALS: BP 100/54
[2024-06-04 06:19] VITALS: RESP 16
--- NOTE | 2024-06-04 07:52 | ECG_ITS ---
Test Reason : medical clearance Blood Pressure : / mmHG Vent. Rate : 069 BPM Atrial Rate : 069 BPM P-R Int : 128 ms QRS Dur : 084 ms QT Int : 378 ms P-R-T Axes : 057 070 061 degrees QTc Int : 405 ms Normal sinus rhythm Normal ECG When compared with ECG of 26-AUG-2023 08:52, No significant change was found Referred By: Moise Harris Electronically Signed By:Faraz Vega
--- NOTE | 2024-06-04 12:37 | PHA.MEDREC ---
Pharmacy Consult ? Medication Reconciliation Pharmacy has reviewed the medication reconciliation completed by nursing.
--- NOTE | 2024-06-04 13:07 | PC.NURSE ---
Patient came out while I was on the phone and asked if he could go home. Patient is admitted and has a room.
[2024-06-04 13:42] LABS: Amphetamine Screen Urine Not Detected (Not Detect); Barbiturates, Urine Not Detected (Not Detect); Benzodiazepines Screen Urine Not Detected (Not Detect); Buprenorphine Scr Not Detected (Not Detect); Cannabinoid Screen Urine POSITIVE (Not Detect); Cocaine Screen Urine Not Detected (Not Detect); Fentanyl, urine Not Detected (Not Detect); Methadone Screen, Urine Not Detected (Not Detect); Opiate Screen Urine Not Detected (Not Detect); Oxycodone Screen Urine Not Detected (Not Detect); Phencyclidine Screen Urine Not Detected (Not Detect)
--- NOTE | 2024-06-04 14:17 | PC.NURSE ---
report given to accepting unit RN
[2024-06-04 14:28] VITALS: BP 127/72; PULSE 97; TEMP 37.1; O2SAT 100
[2024-06-04 15:18] VITALS: BMI 18.3
--- NOTE | 2024-06-04 17:32 | PC.ADMIT ---
Satya is a 24yo male admitted to , on a 12b, at approximately 14:25 today. He is known to [facility] from previous admissions for Schizophrenia. He's also been treated for PTSD. Most recently, he was discharged from on the of this month. Pt has a reported history of medication non-compliance in the past. His mother reports she'd been enforcing his med compliance since most recent discharge and hasn't seen improvement in paranoia, delusions & AVH. Precipitating this admission Satya reports smoking too much weed , which caused heightened anxiety & paranoia, which ultimately led him to [facility]. Satya was cooperative with admission process, however, with limited participation. Skin check done & unremarkable. He is placed on 15min safety checks. Satya verbalizes the desire to be discharged home ANEUDY. I don't need to stay here. I won't smoke any more weed, that's why this happened. I'm better today. He declines to sign a CV but is accepting of the plan to stay for evaluation.
[2024-06-04 19:43] VITALS: BP 104/65; PULSE 100; TEMP 37.1; O2SAT 97
[2024-06-04] MEDS: OLANZapine 10 MG TABLET PO (20:18)
[2024-06-04] MEDS: Prazosin HCL 1 MG CAPSULE PO (20:18)
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
[2024-06-05] MEDS: hydrOXYzine HCL 25 MG TABLET PO (16:06)
[2024-06-05 19:48] VITALS: BP 138/82; PULSE 98; TEMP 36.2; O2SAT 100
[2024-06-05] MEDS: Prazosin HCL 1 MG CAPSULE PO (20:24)
[2024-06-05] MEDS: OLANZapine 7.5 MG TABLET 15 MG PO (20:24)
[2024-06-05] MEDS: traZODone HCL 50 MG TABLET PO ×2 (20:25→23:16)
[2024-06-06] MEDS: traZODone HCL 50 MG TABLET PO ×3 (00:22→21:47)
[2024-06-06 08:04] VITALS: BP 90/46; PULSE 71; TEMP 36.4; O2SAT 98
[2024-06-06] MEDS: OLANZapine 5 MG TABLET PO ×2 (14:43→21:48)
--- NOTE | 2024-06-06 15:18 | HO.PSYCHPN ---
Subjective Subjective Date of Service: 06/06/24 Reason For Visit: Schizophrenia; cannabis use disorder Subjective Notes: Section 12B Healthcare Proxy: No Guardianship: No Medical Problems Affecting Mental Status: No Interim History: Pt seen,discussed with the team. Review of plan of care Pt asks if he can sign a three day notice. Explained the 12B and expiration. I feel ready to go home. Denies symptoms we could address currently Review of Systems Acute medical concerns: No Medical Review of Systems: unchanged Review of Systems Review of Systems denies Mental Status Exam Mental Status Exam Patient Appearance: Appropriate Patient Orientation: Person, Place, Time and Situation Level of Consciousness: Alert Patient Behavior: Talkative, Cooperative and Good Eye Contact Mood Description: Withdrawn Affect Description: Flat Patient Cognition Impaired: No Ability to Follow Directions: Good Speech Pattern: Spontaneous Speech Memory Description: Intact Hallucinations: None Delusions: Not Present Thought Process: Rumination Thought Content: positive for Perseveration and positive for Suicidal Ideation (denies) Judgement: Fair Diagnostics Vital Signs (24Hr): Vital Signs - 24 hr 06/05/24 19:48 06/06/24 08:04 Temperature 97.2 F 97.5 F Pulse Rate 98 71 Blood Pressure 138/82 90/46 L Pulse Oximetry 100 98 Oxygen Delivery Method Room Air Room Air BMI result Body Mass Index 18.3 Labs 06/03/24 04:28 06/03/24 04:28 Medications Medications Current Medications Acetaminophen (Acetaminophen 325 Mg Tablet) 650 mg PO Q6H PRN PRN Reason: Headache/Pain Mild Scale (1-3) Al Hydroxide/Mg Hydroxide (Magnesium Hydrox/Alum Hydrox 30 Ml Oral.Susp) 30 ml PO Q6H PRN PRN Reason: Heartburn/Nausea Hydroxyzine HCl (Hydroxyzine Hcl 25 Mg Tablet) 25 mg PO Q6H PRN PRN Reason: Anxiety Last Admin: 06/05/24 16:06 Dose: 25 mg Magnesium Hydroxide (Milk Of Magnesia 30 Ml Oral.Susp) 30 ml PO DAILY PRN PRN Reason: Constipation Nicotine (Nicotine 21 Mg Patch.Td24) 21 mg TRANSDERMA DAILY PRN PRN Reason: nicotine cravings Nicotine Polacrilex (Nicotine Polacrilex 2 Mg Gum) 4 mg BUCCAL Q2H PRN PRN Reason: Nicotine Cravings Olanzapine (Olanzapine 5 Mg Tablet) 5 mg PO Q4H PRN PRN Reason: agitation, psychosis Last Admin: 06/06/24 14:43 Dose: 5 mg Olanzapine (Olanzapine 7.5 Mg Tablet) 15 mg PO BEDTIME MARINA Last Admin: 06/05/24 20:24 Dose: 15 mg Prazosin HCl (Prazosin Hcl 1 Mg Capsule) 1 mg PO BEDTIME MARINA; Protocol Last Admin: 06/05/24 20:24 Dose: 1 mg Trazodone HCl (Trazodone Hcl 50 Mg Tablet) 50 mg PO BEDTIME PRN PRN Reason: continued Insomnia Last Admin: 06/06/24 00:22 Dose: 50 mg Trazodone HCl (Trazodone Hcl 50 Mg Tablet) 50 mg PO BEDTIME MARINA Last Admin: 06/05/24 20:25 Dose: 50 mg Allergies Allergies Allergy/AdvReac Type Severity Reaction Status Date / Time lactase [From Dairy Aid] AdvReac Rash Verified 06/03/24 02:18 Pork/Porcine Containing AdvReac Nausea Verified 06/03/24 02:18 Products Assessment & Plan Assessment & Plan (1) Schizophrenia: Qualifiers: Schizophrenia type: unspecified Qualified Code(s): F20.9 - Schizophrenia, unspecified Status: Acute Code(s): F20.9 - Schizophrenia, unspecified (2) PTSD (post-traumatic stress disorder): Status: Acute Code(s): F43.10 - Post-traumatic stress disorder, unspecified Plan Patient is a 24 yo male with hx of Schizophrenia, PTSD, cannabis use, who presents for continue paranoid delusions. Patient initially guarded. He says he mostly takes his medications. He says I smoked weed and I was not supposed to... I got a panic attack and I did not feel good... Like pins and needles and nerves and all that... He acknowledged he was having scary thoughts like I was getting poked. Patient was vague about whether not he had auditory hallucinations but then said he did have them when he smoked weed however does not remember what the voices said and currently denies them. Information Clerk Brokerage referred to prior paranoid delusion that something might be going inside him and patient acknowledged that last week he was worried that a snake was growing insight however he now no longer believes this He did however share he feels embarrassed by talking about the symptoms, which typewriter assembler and health and social care teacher helped to mitigate. Patient also acknowledged that he was having paranoid thoughts, the people were following him to harm him but again thought it was triggered by smoking cannabis. He agrees cannabis exacerbates these problems and says he regrets smoking it. Denies all other drug or alcohol use. Denies any SI or HI Patient's mother reported to ED staff that she has been closely monitoring in forcing med compliance someone however she feels it has been no improvement in his paranoia, delusions or AVH since his last discharge Formulation/clinical reasoning: Patient has history of schizophrenia/ psychotic symptoms. It is not clear to what extent Zyprexa mitigates the symptoms; it seem likely they remain and patient just keeps quiet about it and that they were exacerbated by cannabis use. -For now, Will increase Zyprexa to 15 mg which patient agrees. -Reports trouble sleeping due to thoughts about what he needs to get done for the following day to achieve his goals; discussed options, including trazodone and risks/side-effects and he agrees to try -Will continue Prazosin which he says resolved parasomnia's 06/06 Continue regime/plan. Pt anxious to discharge which we discussed. Plan: Twelve B Q 15 minute checks Increase Zyprexa to 15 mg q.h.s. (up from home dose of 10 mg) Trazodone for sleep Continue prazosin Gather collateral Reason for continued inpatient stay Substantial Risk for: rapid decompensation Time Spent With Patient Time: Total time managing care of this patient today ____ minutes.
[2024-06-06] MEDS: Nicotine Polacrilex 2 MG GUM 4 MG BUCCAL (15:45)
[2024-06-06 19:38] VITALS: BP 121/72; PULSE 68; TEMP 36.7; O2SAT 99
[2024-06-06] MEDS: OLANZapine 7.5 MG TABLET 15 MG PO (20:56)
[2024-06-06] MEDS: Prazosin HCL 1 MG CAPSULE PO (20:56)
[2024-06-07 08:34] VITALS: BP 96/60; PULSE 89; TEMP 36.4; O2SAT 100
--- NOTE | 2024-06-07 14:03 | P.PNPSI_ITS ---
Subjective Subjective Date of Service: 06/07/24 Reason For Visit: Schizophrenia; cannabis use disorder Interim History: Pt seen, discussed with team. Apprehensive regarding admission and peers on the unit. Talked of medicine hx of Clonidine, Adderall- unsure if these are appropriate for him currently. Will discuss with primary team on 06/08. Encouraged to attend groups, milieu offered activities to begin to assess how team can best assist him during this admission. He agreed to familiarize himself with milieu today. Review of Systems Medical Review of Systems: unchanged Review of Systems Review of Systems Denies Mental Status Exam Mental Status Exam Patient Appearance: Appropriate Patient Orientation: Person, Place, Time and Situation Level of Consciousness: Alert Patient Behavior: Talkative, Cooperative and Good Eye Contact Mood Description: Withdrawn Affect Description: Flat Patient Cognition Impaired: No Ability to Follow Directions: Good Speech Pattern: Spontaneous Speech Memory Description: Intact Hallucinations: None Delusions: Not Present Thought Process: Rumination Thought Content: positive for Perseveration and positive for Suicidal Ideation (denies) Judgement: Fair Diagnostics Vital Signs (24Hr): Vital Signs - 24 hr 06/06/24 19:38 06/07/24 08:34 Temperature 98.1 F 97.6 F Pulse Rate 68 89 Blood Pressure 121/72 96/60 Pulse Oximetry 99 100 Oxygen Delivery Method Room Air Room Air BMI result Body Mass Index 18.3 Labs 06/03/24 04:28 06/03/24 04:28 Medications Medications Current Medications Acetaminophen (Acetaminophen 325 Mg Tablet) 650 mg PO Q6H PRN PRN Reason: Headache/Pain Mild Scale (1-3) Al Hydroxide/Mg Hydroxide (Magnesium Hydrox/Alum Hydrox 30 Ml Oral.Susp) 30 ml PO Q6H PRN PRN Reason: Heartburn/Nausea Hydroxyzine HCl (Hydroxyzine Hcl 25 Mg Tablet) 25 mg PO Q6H PRN PRN Reason: Anxiety Last Admin: 06/05/24 16:06 Dose: 25 mg Magnesium Hydroxide (Milk Of Magnesia 30 Ml Oral.Susp) 30 ml PO DAILY PRN PRN Reason: Constipation Nicotine (Nicotine 21 Mg Patch.Td24) 21 mg TRANSDERMA DAILY PRN PRN Reason: nicotine cravings Nicotine Polacrilex (Nicotine Polacrilex 2 Mg Gum) 4 mg BUCCAL Q2H PRN PRN Reason: Nicotine Cravings Last Admin: 06/06/24 15:45 Dose: 2 mg Olanzapine (Olanzapine 5 Mg Tablet) 5 mg PO Q4H PRN PRN Reason: agitation, psychosis Last Admin: 06/06/24 21:48 Dose: 5 mg Olanzapine (Olanzapine 7.5 Mg Tablet) 15 mg PO BEDTIME MARINA Last Admin: 06/06/24 20:56 Dose: 15 mg Prazosin HCl (Prazosin Hcl 1 Mg Capsule) 1 mg PO BEDTIME MARINA; Protocol Last Admin: 06/06/24 20:56 Dose: 1 mg Trazodone HCl (Trazodone Hcl 50 Mg Tablet) 50 mg PO BEDTIME PRN PRN Reason: continued Insomnia Last Admin: 06/06/24 21:47 Dose: 50 mg Trazodone HCl (Trazodone Hcl 50 Mg Tablet) 50 mg PO BEDTIME MARINA Last Admin: 06/06/24 20:56 Dose: 50 mg Allergies Allergies Allergy/AdvReac Type Severity Reaction Status Date / Time lactase [From Dairy Aid] AdvReac Rash Verified 06/03/24 02:18 Pork/Porcine Containing AdvReac Nausea Verified 06/03/24 02:18 Products Assessment & Plan Assessment & Plan (1) Schizophrenia: Qualifiers: Schizophrenia type: unspecified Qualified Code(s): F20.9 - Schizophrenia, unspecified Status: Acute Code(s): F20.9 - Schizophrenia, unspecified (2) PTSD (post-traumatic stress disorder): Status: Acute Code(s): F43.10 - Post-traumatic stress disorder, unspecified Plan Patient is a 24 yo male with hx of Schizophrenia, PTSD, cannabis use, who presents for continue paranoid delusions. Patient initially guarded. He says he mostly takes his medications. He says I smoked weed and I was not supposed to... I got a panic attack and I did not feel good... Like pins and needles and nerves and all that... He acknowledged he was having scary thoughts like I was getting poked. Patient was vague about whether not he had auditory hallucinations but then said he did have them when he smoked weed however does not remember what the voices said and currently denies them. Information Systems Director referred to prior paranoid delusion that something might be going inside him and patient acknowledged that last week he was worried that a snake was growing insight however he now no longer believes this He did however share he feels embarrassed by talking about the symptoms, which fha underwriter and child welfare social worker helped to mitigate. Patient also acknowledged that he was having paranoid thoughts, the people were following him to harm him but again thought it was triggered by smoking cannabis. He agrees cannabis exacerbates these problems and says he regrets smoking it. Denies all other drug or alcohol use. Denies any SI or HI Patient's mother reported to ED staff that she has been closely monitoring in forcing med compliance someone however she feels it has been no improvement in his paranoia, delusions or AVH since his last discharge 06/07- Continue tx Formulation/clinical reasoning: Patient has history of schizophrenia/ psychotic symptoms. It is not clear to what extent Zyprexa mitigates the symptoms; it seem likely they remain and patient just keeps quiet about it and that they were exacerbated by cannabis use. -For now, Will increase Zyprexa to 15 mg which patient agrees. -Reports trouble sleeping due to thoughts about what he needs to get done for the following day to achieve his goals; discussed options, including trazodone and risks/side-effects and he agrees to try -Will continue Prazosin which he says resolved parasomnia's Plan: Twelve B Q 15 minute checks Increase Zyprexa to 15 mg q.h.s. (up from home dose of 10 mg) Trazodone for sleep Continue prazosin Gather collateral Reason for continued inpatient stay Substantial Risk for: rapid decompensation Time Spent With Patient Time: Total time managing care of this patient today ____ minutes.
[2024-06-07] MEDS: Magnesium Hydrox/Alum Hydrox 30 ML ORAL.SUSP PO (18:49)
[2024-06-07 20:00] VITALS: BP 131/75; PULSE 107; TEMP 36.6; O2SAT 99
[2024-06-07 20:10] VITALS: BP 131/75
[2024-06-07] MEDS: OLANZapine 7.5 MG TABLET 15 MG PO (20:10)
[2024-06-07] MEDS: Prazosin HCL 1 MG CAPSULE PO (20:10)
[2024-06-07] MEDS: traZODone HCL 50 MG TABLET PO ×2 (20:10→21:29)
[2024-06-08] MEDS: Milk of Magnesia 30 ML ORAL.SUSP PO (01:06)
[2024-06-08] MEDS: Loperamide HCl 2 MG CAPSULE 4 MG PO (01:28)
--- NOTE | 2024-06-08 09:52 | P.PNPSI_ITS ---
Subjective Subjective Date of Service: 06/08/24 Reason For Visit: Schizophrenia; cannabis use disorder Interim History: met with patient; discussed with team pt says he's feeling better; denies any AH or paranoid thinking. Sleeping well. He says he finds it hard to focus throughout the day, hard to organize his thoughts. He says he used to be on adderall in HS and it was very helpful and wonders if he can get back on now. Automotive Drivability Technician discussed risks/side-effects of adderall including possibly triggering AH to return. He said he would like to try and will report if any return of psychotic symptoms. pt signed CV willing to stay extra days for med trial Mental Status Exam Mental Status Exam Narrative: Pt is alert and oriented; behavior is cooperative, friendly and calm; patient is not in distress; dressed in hospital attire with unkempt hair but adequate hygiene; mood is described as good and affect congruent; eye contact appropriate; Speech is normal rate, volume and prosody and not pressured; no psychomotor agitation/retardation present; thought process is organized and goal directed; Thought content is on tx; otherwise pertinent to relevant topics and without any delusional content, paranoid ideations or grandiosity; denies any SI/HI. There is no evidence of perceptual disturbance. Patients insight and judgment appear intact. Diagnostics Vital Signs (24Hr): Vital Signs - 24 hr 06/07/24 20:00 06/07/24 20:10 Temperature 97.8 F Pulse Rate 107 H Blood Pressure 131/75 131/75 Pulse Oximetry 99 Oxygen Delivery Method Room Air BMI result Body Mass Index 18.3 Labs 06/03/24 04:28 06/03/24 04:28 Medications Medications Current Medications Acetaminophen (Acetaminophen 325 Mg Tablet) 650 mg PO Q6H PRN PRN Reason: Headache/Pain Mild Scale (1-3) Al Hydroxide/Mg Hydroxide (Magnesium Hydrox/Alum Hydrox 30 Ml Oral.Susp) 30 ml PO Q6H PRN PRN Reason: Heartburn/Nausea Last Admin: 06/07/24 18:49 Dose: 30 ml Hydroxyzine HCl (Hydroxyzine Hcl 25 Mg Tablet) 25 mg PO Q6H PRN PRN Reason: Anxiety Last Admin: 06/05/24 16:06 Dose: 25 mg Loperamide HCl (Loperamide Hcl 2 Mg Capsule) 4 mg PO Q4H PRN PRN Reason: Diarrhea Last Admin: 06/08/24 01:28 Dose: 4 mg Magnesium Hydroxide (Milk Of Magnesia 30 Ml Oral.Susp) 30 ml PO DAILY PRN PRN Reason: Constipation Last Admin: 06/08/24 01:06 Dose: 30 ml Nicotine (Nicotine 21 Mg Patch.Td24) 21 mg TRANSDERMA DAILY PRN PRN Reason: nicotine cravings Nicotine Polacrilex (Nicotine Polacrilex 2 Mg Gum) 4 mg BUCCAL Q2H PRN PRN Reason: Nicotine Cravings Last Admin: 06/06/24 15:45 Dose: 2 mg Olanzapine (Olanzapine 5 Mg Tablet) 5 mg PO Q4H PRN PRN Reason: agitation, psychosis Last Admin: 06/06/24 21:48 Dose: 5 mg Olanzapine (Olanzapine 7.5 Mg Tablet) 15 mg PO BEDTIME MARINA Last Admin: 06/07/24 20:10 Dose: 15 mg Prazosin HCl (Prazosin Hcl 1 Mg Capsule) 1 mg PO BEDTIME MARINA; Protocol Last Admin: 06/07/24 20:10 Dose: 1 mg Trazodone HCl (Trazodone Hcl 50 Mg Tablet) 50 mg PO BEDTIME PRN PRN Reason: continued Insomnia Last Admin: 06/07/24 21:29 Dose: 50 mg Trazodone HCl (Trazodone Hcl 50 Mg Tablet) 50 mg PO BEDTIME MARINA Last Admin: 06/07/24 20:10 Dose: 50 mg Allergies Allergies Allergy/AdvReac Type Severity Reaction Status Date / Time lactase [From Dairy Aid] AdvReac Rash Verified 06/03/24 02:18 Pork/Porcine Containing AdvReac Nausea Verified 06/03/24 02:18 Products Assessment & Plan Assessment & Plan (1) Schizophrenia: Qualifiers: Schizophrenia type: unspecified Qualified Code(s): F20.9 - Schizophrenia, unspecified Status: Acute Code(s): F20.9 - Schizophrenia, unspecified (2) PTSD (post-traumatic stress disorder): Status: Acute Code(s): F43.10 - Post-traumatic stress disorder, unspecified Plan Patient is a 24 yo male with hx of Schizophrenia, PTSD, cannabis use, who presents for continue paranoid delusions. Patient initially guarded. He says he mostly takes his medications. He says I smoked weed and I was not supposed to... I got a panic attack and I did not feel good... Like pins and needles and nerves and all that... He acknowledged he was having scary thoughts like I was getting poked. Patient was vague about whether not he had auditory hallucinations but then said he did have them when he smoked weed however does not remember what the voices said and currently denies them. Automotive Drivability Technician referred to prior paranoid delusion that something might be going inside him and patient acknowledged that last week he was worried that a snake was growing insight however he now no longer believes this He did however share he feels embarrassed by talking about the symptoms, which policy writer and outreach and education social worker helped to mitigate. Patient also acknowledged that he was having paranoid thoughts, the people were following him to harm him but again thought it was triggered by smoking cannabis. He agrees cannabis exacerbates these problems and says he regrets smoking it. Denies all other drug or alcohol use. Denies any SI or HI Patient's mother reported to ED staff that she has been closely monitoring in forcing med compliance someone however she feels it has been no improvement in his paranoia, delusions or AVH since his last discharge Formulation/clinical reasoning: Patient has history of schizophrenia/ psychotic symptoms. It is not clear to what extent Zyprexa mitigates the symptoms; it seem likely they remain and patient just keeps quiet about it and that they were exacerbated by cannabis use. -For now, Will increase Zyprexa to 15 mg which patient agrees. -Reports trouble sleeping due to thoughts about what he needs to get done for the following day to achieve his goals; discussed options, including trazodone and risks/side-effects and he agrees to try -Will continue Prazosin which he says resolved parasomnia's 06/06 Continue regime/plan. Pt anxious to discharge which we discussed. 06/08 pt says he's feeling better; denies any AH or paranoid thinking. Sleeping well. He says he finds it hard to focus throughout the day, hard to organize his thoughts. He says he used to be on adderall in HS and it was very helpful and wonders if he can get back on now. Automotive Drivability Technician discussed risks/side-effects of adderall including possibly triggering AH to return. He said he would like to try and will report if any return of psychotic symptoms. pt signed CV willing to stay extra days for med trial Plan: CV start Adderall XR 15mg Q 15 minute checks Increase Zyprexa to 15 mg q.h.s. (up from home dose of 10 mg) Trazodone for sleep Continue prazosin Gather collateral Patient educated on: diagnosis, medication risk/benefits and therapeutic strategies Informed Consent: understands Reason for continued inpatient stay Substantial Risk for: stable for discharge Time Spent With Patient Time: Total time managing care of this patient today ____ minutes.
[2024-06-08] MEDS: Dextroamphetamine/Amphetamine XR 10 MG CAP.ER.24H PO (15:24)
[2024-06-08 19:45] VITALS: BP 133/62; PULSE 126; RESP 16; TEMP 36.9; O2SAT 99
[2024-06-08 19:46] VITALS: BP 133/62; PULSE 126; TEMP 36.9; O2SAT 99
[2024-06-08] MEDS: Prazosin HCL 1 MG CAPSULE PO (21:38)
[2024-06-08] MEDS: OLANZapine 7.5 MG TABLET 15 MG PO (21:38)
[2024-06-08] MEDS: traZODone HCL 50 MG TABLET PO ×2 (21:38→23:33)
[2024-06-09] MEDS: Acetaminophen 325 MG TABLET 650 MG PO (05:49)
[2024-06-09 08:14] VITALS: BP 120/62; PULSE 96; TEMP 36.9; O2SAT 99
[2024-06-09] MEDS: Dextroamphetamine/Amphetamine XR 5 MG CAP.ER.24H 15 MG PO (09:09)
--- NOTE | 2024-06-09 09:43 | HO.PSYCHPN ---
Subjective Subjective Date of Service: 06/09/24 Reason For Visit: Schizophrenia; cannabis use disorder Interim History: Met with patient; discussed with team Patient remains doing much better, good mood, no AH, no paranoid thinking. He feels that Adderall 15 mg helped a little bit but not all that much and agrees to increase to 20. Discussed feeling confident to discuss his symptoms when they get exacerbated and patient said he feels like he can trust his mother to do so. Acknowledges that it can be hard to distinguish when his paranoid thoughts are actually paranoia verse concerned about real things but again says he will discuss with his mother. Not sleeping so well and asks for clonidine which he was on in the past. Also agrees to increase trazodone. Mental Status Exam Mental Status Exam Narrative: Pt is alert and oriented; behavior is cooperative, friendly and calm; patient is not in distress; dressed in hospital attire with unkempt hair but adequate hygiene; mood is described as good and affect congruent; eye contact appropriate; Speech is normal rate, volume and prosody and not pressured; no psychomotor agitation/retardation present; thought process is organized and goal directed; Thought content is on tx; otherwise pertinent to relevant topics and without any delusional content, paranoid ideations or grandiosity; denies any SI/HI. Denies AH and there is no evidence of perceptual disturbance. Patients insight and judgment fair. Diagnostics Vital Signs (24Hr): Vital Signs - 24 hr 06/08/24 19:45 06/08/24 19:46 06/09/24 08:14 Temperature 98.5 F 98.5 F 98.5 F Pulse Rate 126 H 126 H 96 Respiratory Rate 16 Blood Pressure 133/62 133/62 120/62 Pulse Oximetry 99 99 99 Oxygen Delivery Method Room Air Room Air Room Air BMI result Body Mass Index 18.3 Labs 06/03/24 04:28 06/03/24 04:28 Medications Medications Current Medications Acetaminophen (Acetaminophen 325 Mg Tablet) 650 mg PO Q6H PRN PRN Reason: Headache/Pain Mild Scale (1-3) Last Admin: 06/09/24 05:49 Dose: 650 mg Al Hydroxide/Mg Hydroxide (Magnesium Hydrox/Alum Hydrox 30 Ml Oral.Susp) 30 ml PO Q6H PRN PRN Reason: Heartburn/Nausea Last Admin: 06/07/24 18:49 Dose: 30 ml Amphetamine/Dextroamphetamine (Dextroamphetamine/Amphetamine Xr 5 Mg Cap.Er.24h) 15 mg PO DAILY MARINA Last Admin: 06/09/24 09:09 Dose: 15 mg Hydroxyzine HCl (Hydroxyzine Hcl 25 Mg Tablet) 25 mg PO Q6H PRN PRN Reason: Anxiety Last Admin: 06/05/24 16:06 Dose: 25 mg Loperamide HCl (Loperamide Hcl 2 Mg Capsule) 4 mg PO Q4H PRN PRN Reason: Diarrhea Last Admin: 06/08/24 01:28 Dose: 4 mg Magnesium Hydroxide (Milk Of Magnesia 30 Ml Oral.Susp) 30 ml PO DAILY PRN PRN Reason: Constipation Last Admin: 06/08/24 01:06 Dose: 30 ml Nicotine (Nicotine 21 Mg Patch.Td24) 21 mg TRANSDERMA DAILY PRN PRN Reason: nicotine cravings Nicotine Polacrilex (Nicotine Polacrilex 2 Mg Gum) 4 mg BUCCAL Q2H PRN PRN Reason: Nicotine Cravings Last Admin: 06/06/24 15:45 Dose: 2 mg Olanzapine (Olanzapine 5 Mg Tablet) 5 mg PO Q4H PRN PRN Reason: agitation, psychosis Last Admin: 06/06/24 21:48 Dose: 5 mg Olanzapine (Olanzapine 7.5 Mg Tablet) 15 mg PO BEDTIME MARINA Last Admin: 06/08/24 21:38 Dose: 15 mg Prazosin HCl (Prazosin Hcl 1 Mg Capsule) 1 mg PO BEDTIME MARINA; Protocol Last Admin: 06/08/24 21:38 Dose: 1 mg Trazodone HCl (Trazodone Hcl 50 Mg Tablet) 50 mg PO BEDTIME PRN PRN Reason: continued Insomnia Last Admin: 06/08/24 23:33 Dose: 50 mg Trazodone HCl (Trazodone Hcl 50 Mg Tablet) 50 mg PO BEDTIME MARINA Last Admin: 06/08/24 21:38 Dose: 50 mg Allergies Allergies Allergy/AdvReac Type Severity Reaction Status Date / Time lactase [From Dairy Aid] AdvReac Rash Verified 06/03/24 02:18 Pork/Porcine Containing AdvReac Nausea Verified 06/03/24 02:18 Products Assessment & Plan Assessment & Plan (1) Schizophrenia: Qualifiers: Schizophrenia type: unspecified Qualified Code(s): F20.9 - Schizophrenia, unspecified Status: Acute Code(s): F20.9 - Schizophrenia, unspecified (2) PTSD (post-traumatic stress disorder): Status: Acute Code(s): F43.10 - Post-traumatic stress disorder, unspecified Plan Patient is a 24 yo male with hx of Schizophrenia, PTSD, cannabis use, who presents for continue paranoid delusions. Patient initially guarded. He says he mostly takes his medications. He says I smoked weed and I was not supposed to... I got a panic attack and I did not feel good... Like pins and needles and nerves and all that... He acknowledged he was having scary thoughts like I was getting poked. Patient was vague about whether not he had auditory hallucinations but then said he did have them when he smoked weed however does not remember what the voices said and currently denies them. Animal Nutrition Consultant referred to prior paranoid delusion that something might be going inside him and patient acknowledged that last week he was worried that a snake was growing insight however he now no longer believes this He did however share he feels embarrassed by talking about the symptoms, which keno writer / runner and social work nurse helped to mitigate. Patient also acknowledged that he was having paranoid thoughts, the people were following him to harm him but again thought it was triggered by smoking cannabis. He agrees cannabis exacerbates these problems and says he regrets smoking it. Denies all other drug or alcohol use. Denies any SI or HI Patient's mother reported to ED staff that she has been closely monitoring in forcing med compliance someone however she feels it has been no improvement in his paranoia, delusions or AVH since his last discharge Formulation/clinical reasoning: Patient has history of schizophrenia/ psychotic symptoms. It is not clear to what extent Zyprexa mitigates the symptoms; it seem likely they remain and patient just keeps quiet about it and that they were exacerbated by cannabis use. -For now, Will increase Zyprexa to 15 mg which patient agrees. -Reports trouble sleeping due to thoughts about what he needs to get done for the following day to achieve his goals; discussed options, including trazodone and risks/side-effects and he agrees to try -Will continue Prazosin which he says resolved parasomnia's 06/06 Continue regime/plan. Pt anxious to discharge which we discussed. 06/08 pt says he's feeling better; denies any AH or paranoid thinking. Sleeping well. He says he finds it hard to focus throughout the day, hard to organize his thoughts. He says he used to be on adderall in HS and it was very helpful and wonders if he can get back on now. Animal Nutrition Consultant discussed risks/side-effects of adderall including possibly triggering AH to return. He said he would like to try and will report if any return of psychotic symptoms. -pt signed CV willing to stay extra days for med trial 06/09 Patient remains doing much better, good mood, no AH, no paranoid thinking. He feels that Adderall 15 mg helped a little bit but not all that much and agrees to increase to 20. Discussed feeling confident to discuss his symptoms when they get exacerbated and patient said he feels like he can trust his mother to do so. Acknowledges that it can be hard to distinguish when his paranoid thoughts are actually paranoia verse concerned about real things but again says he will discuss with his mother. Not sleeping so well and asks for clonidine which he was on in the past. Also agrees to increase trazodone. -patient plans to discharge tomorrow. He is at baseline, doing well, with psychotic symptoms resolved. He is returning to live with his mother who is supportive. Plan: CV Increase to Adderall XR 20mg Q 15 minute checks Continue Zyprexa to 15 mg q.h.s. (up from home dose of 10 mg) Increase to Trazodone 150 mg p.r.n. Continue prazosin Gather collateral Patient educated on: diagnosis, medication risk/benefits and therapeutic strategies Informed Consent: understands Reason for continued inpatient stay Substantial Risk for: stable for discharge Time Spent With Patient Time: Total time managing care of this patient today ____ minutes.
[2024-06-09] MEDS: Magnesium Hydrox/Alum Hydrox 30 ML ORAL.SUSP PO (14:02)
--- NOTE | 2024-06-09 17:59 | P.DS_ITS ---
DS: Providers Provider Date of Service: 06/10/24 Date of admission: 06/04/24 12:12 Date of discharge: 06/10/24 Primary care physician: Unknown Physician Attending physician on admission: Juan Sanches Attending physician on discharge: Juan Sanches DS: Diagnosis Discharge Diagnosis (1) Schizophrenia: Status: Acute (2) PTSD (post-traumatic stress disorder): Status: Acute DS: Medications Discharge Medications Home Medications: Previous Rx's ?Medication ?Instructions ?Recorded olanzapine 10 mg tablet 10 mg PO BEDTIME 30 days #30 tabs 05/18/24 prazosin 1 mg capsule 1 mg PO BEDTIME 30 days #30 caps 05/18/24 Mental Status Exam Mental Status Exam Narrative: Pt is alert and oriented; behavior is cooperative, friendly and calm; patient is not in distress; dressed in casual attire with adequate hygiene; mood is described as good and affect congruent; eye contact appropriate; Speech is normal rate, volume and prosody and not pressured; no psychomotor agitation/retardation present; thought process is organized and goal directed; Thought content is on tx; otherwise pertinent to relevant topics and without any delusional content, paranoid ideations or grandiosity; denies any SI/HI. Denies AH and there is no evidence of perceptual disturbance. Patients insight and judgment fair. Data Data Completed and Pending Completed studies during hospitalization [Text1]: 06/03/24 06/04/24 06/05/24 04:28 13:15 07:38 WBC 11.0 H RBC 4.43 L Hgb 14.2 Hct 40.2 L MCV 90.7 MCH 32.1 MCHC 35.3 RDW 12.6 Plt Count 215 MPV 10.2 Immature Gran % (Auto) 0.3 Neut % (Auto) 90.2 H Lymph % (Auto) 3.7 L [place] % (Auto) 5.3 Eos % (Auto) 0.0 Baso % (Auto) 0.5 Lymph # (Auto) 0.4 L [place] # (Auto) 0.6 Eos # (Auto) 0.0 Baso # (Auto) 0.1 Abs Immat Gran (auto) 0.03 Absolute Neuts (auto) 9.9 H Absolute Nucleated RBC 0.000 Nucleated RBC % (auto) 0.0 Smear Tech's Comments VERIFIED Sodium 141 Potassium 4.1 D Chloride 105 Carbon Dioxide 25 Anion Gap 15 BUN 21 H Creatinine 1.12 Estim Creat Clear Calc 85.5 Estimated GFR > 60 Random Glucose 121 H Calcium 9.6 Total Bilirubin 0.2 AST 25 ALT 12 Alkaline Phosphatase 77 Total Protein 6.6 Albumin 4.0 Vitamin B12 Pending Folate Pending Salicylates < 5.0 L Urine Opiates Screen Not Detected Ur Buprenorphine Scrn Not Detected Ur Oxycodone Screen Not Detected Urine Methadone Screen Not Detected Urine Fentanyl Screen Not Detected Acetaminophen < 3 Ur Barbiturates Screen Not Detected Ur Phencyclidine Scrn Not Detected Ur Amphetamines Screen Not Detected U Benzodiazepines Scrn Not Detected Urine Cocaine Screen Not Detected U Marijuana (THC) Screen POSITIVE H Ethyl Alcohol < 10 DS: Summary Hospital Course Hospital Course: Patient is a 24 yo male with hx of Schizophrenia, PTSD, cannabis use, who presents for continue paranoid delusions. Patient initially guarded. He says he mostly takes his medications. He says I smoked weed and I was not supposed to... I got a panic attack and I did not feel good... Like pins and needles and nerves and all that... He acknowledged he was having scary thoughts like I was getting poked. Patient was vague about whether not he had auditory hallucinations but then said he did have them when he smoked weed however does not remember what the voices said and currently denies them. Guard Rail Installer referred to prior paranoid delusion that something might be going inside him and patient acknowledged that last week he was worried that a snake was growing insight however he now no longer believes this He did however share he feels embarras sed by talking about the symptoms, which credit underwriter and psychologist social helped to mitigate. Patient also acknowledged that he was having paranoid thoughts, the people were following him to harm him but again thought it was triggered by smoking cannabis. He agrees cannabis exacerbates these problems and says he regrets smoking it. Denies all other drug or alcohol use. Denies any SI or HI Patient's mother reported to ED staff that she has been closely monitoring in forcing med compliance someone however she feels it has been no improvement in his paranoia, delusions or AVH since his last discharge Formulation/clinical reasoning: Patient guarded on admission but cooperative. Patient has history of schizophrenia/ psychotic symptoms. It is not clear to what extent Zyprexa mitigates the symptoms; it seem likely they remain and patient just keeps quiet about it and that they were exacerbated by cannabis use. He agreed to increasing Zyprexa to 15 mg. -For now, Will increase Zyprexa to 15 mg which patient agrees. -Reports trouble sleeping due to thoughts about what he needs to get done for the following day to achieve his goals; discussed options, including trazodone and risks/side-effects and he agrees to try -Will continue Prazosin which he says resolved parasomnia's 06/08 pt says he's feeling better; denies any AH or paranoid thinking. Sleeping well. He says he finds it hard to focus throughout the day, hard to organize his thoughts. He says he used to be on adderall in HS and it was very helpful and wonders if he can get back on now. Guard Rail Installer discussed risks/side-effects of adderall including possibly triggering AH to return. He said he would like to try and will report if any return of psychotic symptoms. -pt signed CV willing to stay extra days for med trial 06/09 Patient remains doing much better, good mood, no AH, no paranoid thinking. He feels that Adderall 15 mg helped a little bit but not all that much and agrees to increase to 20. Discussed feeling confident to discuss his symptoms when they get exacerbated and patient said he feels like he can trust his mother to do so. Acknowledges that it can be hard to distinguish when his paranoid thoughts are actually paranoia verse concerned about real things but again says he will discuss with his mother. Not sleeping so well and asks for clonidine which he was on in the past. Agrees to clonidine scheduled at bedtime; Also agrees to increase trazodone. With treatment, remained in good mood without psychotic symptoms. He returned to baseline and was doing well, feeling optimistic about continuing treatment. Adderall helping. Patient asking for discharge. He is not in imminent risk for harm to self or others and appropriate to continue treatment in the community. Patient is returning to live with his mother who is supportive. His request for discharge honored. Time spent discussing smoking cessation with patient: 3 to 10 minutes Status at Discharge Functional status at discharge: independent ambulation Time Spent with Patient Time attestation: Total time managing care of this patient today _40___ minutes. Time spent: Greater than 30 minutes Specific discharge activities: Met with patient; discussed with team; charting; prescription Discharge Plan Discharge Anticipated Discharge Date/Time: 06/10/24 11:09 Patient Disposition: Home, Self-Care Discharge Diagnosis: schizophrenia Referrals: Therapy Intake: Татьяна Nick ([facility]) [Other] - 06/16/24 10:00 am (Appointment is in person at the office; please arrive 15 minutes early to complete paperwork ) Psych Prescriber: Anette Osborne ([facility]) [Other] - 07/09/24 10:00 am (Telehealth ) Psych Prescriber: Anette Osborne ([facility]) [Other] - 08/06/24 11:00 am (Telehealth ) Physician,Unknown J [Primary Care Provider] - 1 Week Discharge Medications: New clonidine HCl 0.1 mg Tablet 0.1 mg PO Q4H PRN (Reason: anxiety/insomnia) 30 Days Qty: 90 1RF Protocol: Hold for SBP< HOLD for SBP < : 90 dextroamphetamine-amphetamine 20 mg capsule,extended release 24hr 20 mg PO DAILY 30 Days Qty: 30 0RF Rx Instructions: Partial Fill upon patient request. hydroxyzine HCl 25 mg Tablet 25 mg PO Q6H PRN (Reason: Anxiety) 30 Days Qty: 90 1RF trazodone 150 mg tablet 150 mg PO BEDTIME PRN (Reason: insomnia) 30 Days Qty: 30 1RF Continued prazosin 1 mg Capsule 1 mg PO BEDTIME 30 Days Qty: 30 1RF Protocol: Hold for SBP< HOLD for SBP < : 90 Changed olanzapine 15 mg tablet 15 mg PO BEDTIME 30 Days Qty: 30 1RF Discharge Orders: Discharge Order (Routine); Ordered 06/10/24 Ordered By: Juan Sanches Diet: Regular diet Activity on Discharge: As tolerated Stand Alone Forms: Patient Portal Discharge page Print Language: Anguillan Care Plan Goals: Maintain mood and safe behaviors Take medications as prescribed Practice coping skills Continue with outpatient providers and reach out to them as needed Health Concerns: Mood stability and behaviors Plan of Treatment: Follow up with your PCP, psychiatric provider and other outpatient providers regarding above concerns Take medications as prescribed Assessment: Risk assessment at time of discharge:? Patient was interviewed prior to discharge and found to be fully oriented and without any SI or HI. Patient has improved insight and judgment and wants to continue treatment. Patient is not in imminent risk of harm to self or others and has a safety plan that includes presenting to the closest ER or calling 911 if feeling unsafe.? Patient has been observed closely by nursing and unit staff throughout admission; patient has not engaged in any behaviors that suggest dangerousness to self or others and has demonstrated appropriate behaviors and impulse control
[2024-06-09 19:41] VITALS: BP 122/72; PULSE 105; RESP 16; TEMP 36.4; O2SAT 99
[2024-06-09] MEDS: traZODone HCL 50 MG TABLET 150 MG PO (20:52)
[2024-06-09] MEDS: cloNIDine HCL 0.1 MG TABLET PO (20:52)
[2024-06-09] MEDS: Prazosin HCL 1 MG CAPSULE PO (20:52)
[2024-06-09] MEDS: OLANZapine 7.5 MG TABLET 15 MG PO (20:52)
[2024-06-10] MEDS: Dextroamphetamine/Amphetamine XR 5 MG CAP.ER.24H 20 MG PO (08:31)
[2024-06-10] MEDS: OLANZapine 5 MG TABLET PO (08:56)
== END 2024-06-10 11:20 | disposition home or self-care (01) | DRG 750 ==
LOC: HO.ED 06:48 → HO.PM5 06-04 12:33
PROVIDERS: Admitting Provider Clinical Nurse Specialist Psychiatric/Mental Health, Adult; Emergency Provider Internal Medicine; Visit Provider Psychiatry & Neurology Psychiatry
DX: F20.9 Schizophrenia, unspecified (principal); F43.10 Post-traumatic stress disorder, unspecified; Z79.899 Other long term (current) drug therapy
CPT/HCPCS: 36415; 80053; 80143; 80179; 80307; 82607; 82746; 85025; 93005; 99285; J1200; J1630; J2060

== ENCOUNTER → 2024-06-04 07:52 | Outpatient (BNV) | payer OTHER, SELFPAY | PROVIDERS: Emergency Provider Internal Medicine; Visit Provider Internal Medicine Cardiovascular Disease | DX: F41.9 Anxiety disorder, unspecified (principal) | CPT/HCPCS: 93010 ==

== ENCOUNTER → 2024-06-04 12:12 | Outpatient (BNV) | payer OTHER, SELFPAY | PROVIDERS: Admitting Provider Clinical Nurse Specialist Psychiatric/Mental Health, Adult; Emergency Provider Internal Medicine; Visit Provider Psychiatry & Neurology Psychiatry | DX: F20.0 Paranoid schizophrenia (principal); F43.11 Post-traumatic stress disorder, acute | CPT/HCPCS: 90792; 99232 ==

== ENCOUNTER 2024-11-11 20:51 | Inpatient (IN) | payer OTHER, SELFPAY ==
[2024-11-11 21:02] VITALS: BMI 23.5
[2024-11-11 21:10] VITALS: BP 150/83; PULSE 134; RESP 17; TEMP 37.1; O2SAT 97
[2024-11-11 21:36] LABS: MANUAL DIFF FLAG NO
[2024-11-11 21:39] LABS: Basophils Absolute Auto 0.1 X10*3/uL (0.0-0.2); Basophils Percent Auto 0.7 % (0-2); Eosinophils Percent Auto 0.1 % (0-4); Hematocrit 46.3 % (42.0-52.0); Hemoglobin 16.1 g/dl (14.0-18.0); Imm Gran Abs Auto 0.03 X10*3/uL (0.00-0.03); Imm Gran Pct Auto 0.3 % (0.0-0.4); Lymphocytes Absolute Auto 1.6 X10*3/uL (1.2-4.9); Lymphocytes Percent Auto 13.4 % (20-40); Mean Corpuscular HGB Conc 34.8 g/dl (31.0-36.0); Mean Corpuscular Hemoglobin 31.1 pg (27.0-33.0); Mean Corpuscular Volume 89.4 fL (80.0-98.0); Mean Platelet Volume 10.6 fL (9.4-12.4); Monocytes Absolute Auto 1.1 X10*3/uL (0.1-1.2); Monocytes Percent Auto 9.3 % (2-11); Neutrophils Absolute Auto 8.9 x10*3/uL (2.0-8.3); Neutrophils Percent Auto 76.2 % (45-73); Platelet Count 259 X10*3/uL (160-400); Red Blood Count 5.18 X10*6/uL (4.60-5.80); Red Cell Distribution Width 12.5 % (11.0-16.0); White Blood Count 11.6 X10*3/uL (4.8-10.8)
[2024-11-11 21:49] LABS: Amphetamine Screen Urine Not Detected (Not Detect); Barbiturates, Urine Not Detected (Not Detect); Benzodiazepines Screen Urine Not Detected (Not Detect); Buprenorphine Scr Not Detected (Not Detect); Cannabinoid Screen Urine Not Detected (Not Detect); Cocaine Screen Urine Not Detected (Not Detect); Fentanyl, urine Not Detected (Not Detect); Methadone Screen, Urine Not Detected (Not Detect); Opiate Screen Urine Not Detected (Not Detect); Oxycodone Screen Urine Not Detected (Not Detect); Phencyclidine Screen Urine Not Detected (Not Detect)
[2024-11-11 21:53] LABS: Ethanol < 10 mg/dL
[2024-11-11 22:00] LABS: Alanine Aminotransferase 19 U/L (0-40); Albumin Level 5.3 g/dL (3.5-5.0); Alkaline Phosphatase 83 U/L (39-117); Anion Gap 23 (12-20); Aspartate Amino Transferase 27 U/L (5-37); Bilirubin Total 0.4 mg/dL (0.0-1.0); Blood Urea Nitrogen 7 mg/dL (9-16); Calcium 10.1 mg/dL (8.4-10.2); Carbon Dioxide 18 mmol/L (22-29); Chloride 106 mmol/L (96-108); Creatinine Clr Calc Pharmacy 127.8; Estimated Glomerular Filt Rate > 60; Glucose Random 96 mg/dL (60-115); Potassium 3.6 mmol/L (3.3-5.1); Sodium 143 mmol/L (135-145); Total Protein 8.4 g/dL (6.5-8.0)
--- NOTE | 2024-11-12 | ECG_ITS ---
Test Reason : CHECK PROLONGED QT Blood Pressure : */* mmHG Vent. Rate : 71 BPM Atrial Rate : 71 BPM P-R Int : 124 ms QRS Dur : 90 ms QT Int : 392 ms P-R-T Axes : 62 61 47 degrees QTcB Int : 425 ms Normal sinus rhythm Normal ECG When compared with ECG of 04-Jun-2024 08:36, No significant change was found Referred By: Luis Carreon Electronically Signed By: FITO BRITT
[2024-11-12] MEDS: OLANZapine 7.5 MG TABLET 15 MG PO ×2 (00:41→20:58)
--- NOTE | 2024-11-12 07:32 | PC.NURSE ---
Care of Pt assumed at change of shift. Pt is currently resting quietly in bed. NAD noted at this time. Breakfast tray provided at bedside.
--- NOTE | 2024-11-12 08:18 | PC.NURSE ---
Call received from [facility] in admissions requesting the following: EGK U/A Orders placed and pending.
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
[2024-11-12 08:44] LABS: Appearance Urine Clear; Color Urine Yellow; Glucose Urine UA Negative (Negative); Leukocyte Esterase Urine Negative (Negative); Nitrite Urine Negative (Negative); PH 6.5 (5.0-9.0); Urine Blood Negative (Negative); Urine Ketones Negative (Negative); Urine Protein Negative (Neg-Trace)
[2024-11-12 08:47] LABS: Bacteria Urine None Seen (None Seen); Hyaline Casts Urine 0-2 /LPF (0-2); RBC Urine 0-2 /HPF (0-2); Squamous Epithelial Cell Urine 0-2 /HPF (0-2); WBC Urine 0-5 /HPF (0-5)
[2024-11-12 09:17] VITALS: BP 138/77; PULSE 83; RESP 18; TEMP 36.6; O2SAT 98
--- NOTE | 2024-11-12 13:09 | PHA.MEDREC ---
Pharmacy Consult ? Medication Reconciliation Pharmacy has reviewed the medication reconciliation done by nursing.
[2024-11-12 14:25] VITALS: BP 138/86; PULSE 111; RESP 16; TEMP 36.6; O2SAT 97
[2024-11-12] MEDS: Nicotine Polacrilex 2 MG GUM 4 MG BUCCAL (15:06)
[2024-11-12 16:48] VITALS: BMI 21.4
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
[2024-11-12 20:00] VITALS: BP 124/81; PULSE 100; RESP 17; TEMP 36.6; O2SAT 98
[2024-11-13] MEDS: OLANZapine 5 MG TABLET PO (04:16)
[2024-11-13] MEDS: hydrOXYzine HCL 25 MG TABLET PO (04:16)
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
[2024-11-13 20:00] VITALS: BP 133/68; PULSE 118; TEMP 36.6; O2SAT 98
[2024-11-13] MEDS: OLANZapine 7.5 MG TABLET 15 MG PO (20:34)
[2024-11-13] MEDS: Magnesium Hydrox/Alum Hydrox 30 ML ORAL.SUSP PO (20:34)
[2024-11-13] MEDS: Acetaminophen 325 MG TABLET 650 MG PO (20:34)
[2024-11-14 08:00] VITALS: BP 109/67; PULSE 114; RESP 18; TEMP 36.4; O2SAT 97
[2024-11-14 09:00] LABS: Estimated Average Glucose 103 mg/dL; Hemoglobin A1C 148.1785 umol/L; Hemoglobin A1c % 5.2 % (<6.0); Total Hemoglobin (HGBA1C) 4503.9673 umol/L
[2024-11-14 09:19] LABS: Alanine Aminotransferase 22 U/L (0-40); Albumin Level 4.5 g/dL (3.5-5.0); Alkaline Phosphatase 83 U/L (39-117); Anion Gap 9 (12-20); Aspartate Amino Transferase 28 U/L (5-37); Bilirubin Total 0.2 mg/dL (0.0-1.0); Blood Urea Nitrogen 8 mg/dL (9-16); Calcium 9.4 mg/dL (8.4-10.2); Carbon Dioxide 33 mmol/L (22-29); Chloride 104 mmol/L (96-108); Cholesterol 194 mg/dL (<200); Creatinine Clr Calc Pharmacy 118.5; Estimated Glomerular Filt Rate > 60; Glucose Random 97 mg/dL (60-115); HDL Cholesterol 66 mg/dL (>40); LDL Cholesterol Calculated 109 mg/dL (<100); Potassium 3.9 mmol/L (3.3-5.1); Sodium 142 mmol/L (135-145); Total Protein 7.3 g/dL (6.5-8.0); Triglycerides 96 mg/dL (<150)
--- NOTE | 2024-11-14 12:00 | HO.PSYCHPN ---
Subjective Subjective Date of Service: 11/14/24 Reason For Visit: Psychosis Aggression Interim History: Pt accepting med withdrawn and anxious Medication Compliance: No Mental Status Exam Mental Status Exam Patient Appearance: Well Grooomed Patient Orientation: Person, Place, Time and Situation Level of Consciousness: Awake, Appropriate and Alert Patient Behavior: Appropriate, Cooperative, Anxious and Good Eye Contact Mood Description: Withdrawn, Appropriate, Constricted and Anxious Affect Description: Withdrawn and Anxious Patient Cognition Impaired: No Ability to Follow Directions: Fair Speech Pattern: Clear and Coherent Memory Description: Intact and Normal for Patient Hallucinations: None Delusions: Paranoid Ideation Thought Process: Intact and Goal Oriented Thought Content: positive for Intact, positive for [place] and positive for Logical Depressive Symptoms: Increased Anxiety, Muscle Tension and Increased Irritability Judgement: Poor Judgement and Insight: Judgment and insight are fair. He is aware of not taking medication consistently from previous admission. Plan this time to consistently taking them and open to re-start on medications. He made fair decision to quit/stop using OTC cough syrup as it affect his mental health and sleep pattern over-thinking or over-analyzing Diagnostics Vital Signs (24Hr): Vital Signs - 24 hr 11/13/24 20:00 11/14/24 08:00 Temperature 97.9 F 97.5 F Pulse Rate 118 H 114 H Respiratory Rate 18 Blood Pressure 133/68 109/67 Pulse Oximetry 98 97 Oxygen Delivery Method Room Air Room Air BMI result Body Mass Index 21.4 Labs 11/11/24 21:30 11/14/24 08:26 Labs: Laboratory Results - last 48 hr 11/14/24 08:26 Sodium 142 Potassium 3.9 Chloride 104 Carbon Dioxide 33 H Anion Gap 9 L BUN 8 L Creatinine 0.85 Estim Creat Clear Calc 118.5 Estimated GFR > 60 Random Glucose 97 Estimat Average Glucose 103 Hemoglobin A1c % 5.2 Calcium 9.4 D Total Bilirubin 0.2 AST 28 ALT 22 Alkaline Phosphatase 83 Total Protein 7.3 Albumin 4.5 Triglycerides 96 Cholesterol 194 LDL Cholesterol, Calc 109 H HDL Cholesterol 66 Medications Medications Current Medications Acetaminophen (Acetaminophen 325 Mg Tablet) 650 mg PO Q6H PRN PRN Reason: Headache/Pain, Scale 1-10 Last Admin: 11/13/24 20:34 Dose: 650 mg Al Hydroxide/Mg Hydroxide (Magnesium Hydrox/Alum Hydrox 30 Ml Oral.Susp) 30 ml PO Q6H PRN PRN Reason: Heartburn/Nausea Last Admin: 11/13/24 20:34 Dose: 30 ml Clonidine HCl (Clonidine Hcl 0.1 Mg Tablet) 0.1 mg PO Q4H PRN; Protocol PRN Reason: moderate anxiety/insomnia Hydroxyzine HCl (Hydroxyzine Hcl 25 Mg Tablet) 25 mg PO Q6H PRN PRN Reason: mild anxiety Last Admin: 11/13/24 04:16 Dose: 25 mg Magnesium Hydroxide (Milk Of Magnesia 30 Ml Oral.Susp) 30 ml PO DAILY PRN PRN Reason: Constipation Nicotine (Nicotine 21 Mg Patch.Td24) 21 mg TRANSDERMA DAILY PRN PRN Reason: smoking cessation Nicotine Polacrilex (Nicotine Polacrilex 2 Mg Gum) 4 mg BUCCAL Q2H PRN PRN Reason: Nicotine Cravings Last Admin: 11/12/24 15:06 Dose: 4 mg Olanzapine (Olanzapine 5 Mg Tablet) 5 mg PO TID PRN PRN Reason: agitation Last Admin: 11/13/24 04:16 Dose: 5 mg Olanzapine (Olanzapine 7.5 Mg Tablet) 15 mg PO BEDTIME MARINA Last Admin: 11/13/24 20:34 Dose: 15 mg Trazodone HCl (Trazodone Hcl 50 Mg Tablet) 50 mg PO BEDTIME MRX1 PRN PRN Reason: Insomnia Allergies Allergies Allergy/AdvReac Type Severity Reaction Status Date / Time lactase [From Dairy Aid] AdvReac Rash Verified 11/11/24 21:05 Pork/Porcine Containing AdvReac Nausea Verified 11/11/24 21:05 Products Assessment & Plan Assessment & Plan (1) PTSD (post-traumatic stress disorder): Status: Acute Code(s): F43.10 - Post-traumatic stress disorder, unspecified (2) Schizophrenia: Qualifiers: Schizophrenia type: unspecified Qualified Code(s): F20.9 - Schizophrenia, unspecified Status: Acute Code(s): F20.9 - Schizophrenia, unspecified (3) Dextromethorphan use disorder, moderate: Status: Acute Code(s): F19.20 - Other psychoactive substance dependence, uncomplicated (4) Schizophrenia in partial remission with history of multiple episodes: Status: Acute Code(s): F20.9 - Schizophrenia, unspecified Plan Plan HPI: Patient is a 24 y.o single Spanish speaking male comes to [facility] ED via EMS complaining of auditory hallucinations. According ED record, EMS found patient carrying on a knife. Patient also reported that he has been off medications for several months after last inpatient admission here at [facility] in 05/2024. He does not FLU with aftercare plan or taking medication after discharge. He states he does not want to be here once asked what brought him back to this time but his mom made him to come. I do not want to come . He says I do not know when being asked what concerned mom that make him come here. I was pacing and anxious but not much. I am fine since he already re-started on Olanzapine. Patient seems to be a little guarded at the beginning but is more pleasant and cooperative. He reports he stopped taking medication or see psychiatrist after discharged. Reasons for not taking medications are they tried to kill me . He gives more details that his family tried to give me fake pills . Report that mom usual is the one that manage his medication at home. He opens for XIONG this time to enhance medication adherence and goal is to take medication consistently . Report normal sleep pattern but poor appetite the past couple of weeks. He usually eats 1-2 times max/day. Lost about 5bs over last couple of months. Mood is groggy and tired from medication. Report hx of substance use: Mushroom, MDMA, and alcohol but not currently use them. Report using DX5/ cough syrup every other day with last use was a week ago. He stopped using it as it has bad effect on sleep and over thinking and over analyzing when under influent. He is not in school, currently unemployed. He denies SI/SIB/HI/AVH at this current time but report paranoid feeling he was given fake pills by his family. He denies suicide attempts. Report trauma hx (he has extensive trauma hx per previous record) He is A+Ox4, wearing hospital attire, the interview/psychiatric evaluation takes place in OT room. Patient appears stated age, anxious, depressed, and tired as he was in bed sleeping prior to meeting with this provider. Pleasant and cooperative. Speech is WNL. Judgment and insight are fair as he re-started on medications. No SI/SIB/HI/AVH but can be paranoid/delusions. Does not make any delusional statements but states that he stopped taking medication because his family give him fake pills. He recently stops using DX5/ OTC cough syrup which could be contributing factor with non medication adherence lead to the event that he become aggressive toward family members and become paranoid. He does not want to be here but signed CV to get treatment. Goal directed: taking medication as prescribed and continue taking after discharge , and working on anxiety. fair insight of illness and medication hx. Give verbal consent to talk to mother- Isa Del Real at [phone] Formulation/clinical reasoning: Patient is a 24 y.o male with hx of substance use, PTSD, and schizophrenic readmitted to , there were 3 psychiatric admissions hx prior, no other admissions detox elsewhere. He stops taking medication after discharge back in 05/2025. Not FLU with OP psychiatry for aftercare, using substance, increased aggressive behaviors at home toward family members, becoming paranoid/delusions lead to mom having concerns and call EMS. Patient admits on CV, -restart on medications. Poor judmgnet prior to admission. Will continue to monitor with medication titration and offer XIONG to prevent relapsing. PLAN: Patent is on CV. Place on q15 min checks for safety as he currently denies SI/SIB/HI/AVH. Do not appear to be responded to internal stimuli Start PRN medication per admission protocol. Patient is ready to re-start home meds included Zyprxa 15 mg at HS and prazosin 1 mg at HS. I do not re-start on Stimulant at this time until he is more mentally stable. Will consider to re-start in the future. He is open to XIONG options to enhance medication adherence. Will discuss in more details next week once he is more stable on PO and tolerate it well. Oriented to unit and explains rules/meal times/snack and PRN available anytime. Monitor for any complicated problems with tooth pain. He has two wisdom teeth pulled by the dentist Ordered some protocol lab works. Review results with patient when they are available. Will get collateral with family. Patient verbally gives consent to this provider to talk to mother. 11/14/2024 Continue plan of care continue olanzapine Reason for continued inpatient stay Substantial Risk for: inability to function and rapid decompensation Time Spent With Patient Time: Total time managing care of this patient today ____ minutes.
[2024-11-14] MEDS: hydrOXYzine HCL 25 MG TABLET PO (15:20)
[2024-11-14 20:00] VITALS: BP 128/83; PULSE 106; TEMP 36.4; O2SAT 97
[2024-11-14] MEDS: OLANZapine 7.5 MG TABLET 15 MG PO (20:17)
[2024-11-14] MEDS: traZODone HCL 50 MG TABLET PO (21:38)
[2024-11-15] MEDS: Acetaminophen 325 MG TABLET 650 MG PO ×2 (00:10→19:17)
[2024-11-15] MEDS: traZODone HCL 50 MG TABLET PO ×2 (00:10→23:06)
[2024-11-15] MEDS: hydrOXYzine HCL 25 MG TABLET PO ×3 (01:03→23:06)
[2024-11-15 08:00] VITALS: BP 131/72; PULSE 99; RESP 18; TEMP 36.5; O2SAT 98
[2024-11-15 20:00] VITALS: BP 141/81; PULSE 110; RESP 16; TEMP 36.6; O2SAT 98
[2024-11-15] MEDS: OLANZapine 7.5 MG TABLET 15 MG PO (21:14)
--- NOTE | 2024-11-15 23:16 | HO.PSYCHPN ---
Subjective Subjective Date of Service: 11/15/24 Reason For Visit: Psychosis Aggression Interim History: Patient mostly isolative, but was visible on the milieu for short amounts of time. He was found in bed asleep under covers. He was woken and poked his face out from covers. Mostly kept eyes closed but responded to questions. Appears anxious, withdrawl but says he is Feeling more calm Taking olanzapine HS. Says he was brought in by his mother who wanted him back on his medications. He admits he initially did not agree but says his insight is improving. I had stopped the medications says it was no good reasons other than his provider did not show for [facility] meeting. Many of the meds he started running out of them. I am much better on them...I can see that now . AH not anymore . Reports he's been sleeping a lot . Appetite fair. Intermittently experiencing cold sweats, endorses resolving bouts of diarrhea (suggests he had sometimes taken miralax for diarrhea - I informed him miralax usually used as treatment for constipation). NO t taking any bowel regime IP. He denies any fever, chills, muscle stiffness, SOB, CP, N/V. Reviewed recent lab work. Patient was seen later in shift, up getting meal and socializing with peers. Review of Systems Review of Systems Constitutional : No Weight loss, No Fever, No Chills, No Night Sweats, No Fatigue, No Malaise ENT/Mouth : No Hearing loss, No Ear Pain, No Nasal Congestion, No Sinus Pain, No Hoarseness, No sore throat, No Rhinorrhea, No Swallowing Difficulty Eyes: No Eye Pain, No Swelling, No Redness, No Foreign Body, No Discharge, No Vision Changes Cardiovascular : No Chest Pain, No SOB, No Dyspnea on Exertion, No Orthopnea, No Edema, No Palpitations Respiratory : No Cough, No Sputum, No Wheezing, No Smoke Exposure, No Dyspnea Gastrointestinal : No Nausea, No Vomiting, No Diarrhea, No Constipation, No abdominal Pain, No Hematochezia, No Melena Genitourinary : no irregular bleeding, No Dysuria, No Urinary Frequency, No Hematuria, No Urinary Incontinence, No Urgency, No Flank Pain, No Urinary Flow Changes, No Hesitancy Musculoskeletal : No joint pain, No Myalgias, No Joint Swelling Skin : No Skin Lesions, No rash Neuro : No Weakness, No Numbness, No Paresthesias, No Loss of Consciousness, No Dizziness, No Headache Psych : Complaining hallucinations, believes that his mother has been temporary with his meds and therefore has not been taking them. Heme/Lymph: No Bruising, No Bleeding,No Lymphadenopathy Endocrine : No Polyuria, No Polydipsia, No Temperature Intolerance Mental Status Exam Mental Status Exam Patient Appearance: Well Grooomed Patient Orientation: Person, Place, Time and Situation Level of Consciousness: Awake, Appropriate and Alert Patient Behavior: Appropriate, Cooperative, Anxious and Good Eye Contact Mood Description: Withdrawn, Appropriate, Constricted and Anxious Affect Description: Withdrawn and Anxious Patient Cognition Impaired: No Ability to Follow Directions: Fair Speech Pattern: Clear and Coherent Memory Description: Intact and Normal for Patient Diagnostics Vital Signs (24Hr): Vital Signs - 24 hr 11/15/24 08:00 11/15/24 20:00 Temperature 97.7 F 97.8 F Pulse Rate 99 110 H Respiratory Rate 18 16 Blood Pressure 131/72 141/81 H Pulse Oximetry 98 98 Oxygen Delivery Method Room Air Room Air BMI result Body Mass Index 21.4 Labs 11/11/24 21:30 11/14/24 08:26 Labs: Laboratory Results - last 48 hr 11/14/24 08:26 Sodium 142 Potassium 3.9 Chloride 104 Carbon Dioxide 33 H Anion Gap 9 L BUN 8 L Creatinine 0.85 Estim Creat Clear Calc 118.5 Estimated GFR > 60 Random Glucose 97 Estimat Average Glucose 103 Hemoglobin A1c % 5.2 Calcium 9.4 D Total Bilirubin 0.2 AST 28 ALT 22 Alkaline Phosphatase 83 Total Protein 7.3 Albumin 4.5 Triglycerides 96 Cholesterol 194 LDL Cholesterol, Calc 109 H HDL Cholesterol 66 Medications Medications Current Medications Acetaminophen (Acetaminophen 325 Mg Tablet) 650 mg PO Q6H PRN PRN Reason: Headache/Pain, Scale 1-10 Last Admin: 11/15/24 19:17 Dose: 650 mg Al Hydroxide/Mg Hydroxide (Magnesium Hydrox/Alum Hydrox 30 Ml Oral.Susp) 30 ml PO Q6H PRN PRN Reason: Heartburn/Nausea Last Admin: 11/13/24 20:34 Dose: 30 ml Clonidine HCl (Clonidine Hcl 0.1 Mg Tablet) 0.1 mg PO Q4H PRN; Protocol PRN Reason: moderate anxiety/insomnia Hydroxyzine HCl (Hydroxyzine Hcl 25 Mg Tablet) 25 mg PO Q6H PRN PRN Reason: mild anxiety Last Admin: 11/15/24 23:06 Dose: 25 mg Magnesium Hydroxide (Milk Of Magnesia 30 Ml Oral.Susp) 30 ml PO DAILY PRN PRN Reason: Constipation Nicotine (Nicotine 21 Mg Patch.Td24) 21 mg TRANSDERMA DAILY PRN PRN Reason: smoking cessation Nicotine Polacrilex (Nicotine Polacrilex 2 Mg Gum) 4 mg BUCCAL Q2H PRN PRN Reason: Nicotine Cravings Last Admin: 11/12/24 15:06 Dose: 4 mg Olanzapine (Olanzapine 5 Mg Tablet) 5 mg PO TID PRN PRN Reason: agitation Last Admin: 11/13/24 04:16 Dose: 5 mg Olanzapine (Olanzapine 7.5 Mg Tablet) 15 mg PO BEDTIME MARINA Last Admin: 11/15/24 21:14 Dose: 15 mg Trazodone HCl (Trazodone Hcl 50 Mg Tablet) 50 mg PO BEDTIME MRX1 PRN PRN Reason: Insomnia Last Admin: 11/15/24 23:06 Dose: 50 mg Allergies Allergies Allergy/AdvReac Type Severity Reaction Status Date / Time lactase [From Dairy Aid] AdvReac Rash Verified 11/11/24 21:05 Pork/Porcine Containing AdvReac Nausea Verified 11/11/24 21:05 Products Assessment & Plan Assessment & Plan (1) PTSD (post-traumatic stress disorder): Status: Acute Code(s): F43.10 - Post-traumatic stress disorder, unspecified (2) Schizophrenia: Qualifiers: Schizophrenia type: unspecified Qualified Code(s): F20.9 - Schizophrenia, unspecified Status: Acute Code(s): F20.9 - Schizophrenia, unspecified (3) Dextromethorphan use disorder, moderate: Status: Acute Code(s): F19.20 - Other psychoactive substance dependence, uncomplicated (4) Schizophrenia in partial remission with history of multiple episodes: Status: Acute Code(s): F20.9 - Schizophrenia, unspecified Plan Plan HPI: Patient is a 24 y.o single [place] speaking male comes to [facility] ED via EMS complaining of auditory hallucinations. According ED record, EMS found patient carrying on a knife. Patient also reported that he has been off medications for several months after last inpatient admission here at [facility] in 05/2024. He does not FLU with aftercare plan or taking medication after discharge. He states he does not want to be here once asked what brought him back to this time but his mom made him to come. I do not want to come . He says I do not know when being asked what concerned mom that make him come here. I was pacing and anxious but not much. I am fine since he already re-started on Olanzapine. Patient seems to be a little guarded at the beginning but is more pleasant and cooperative. He reports he stopped taking medication or see psychiatrist after discharged. Reasons for not taking medications are they tried to kill me . He gives more details that his family tried to give me fake pills . Report that mom usual is the one that manage his medication at home. He opens for XIONG this time to enhance medication adherence and goal is to take medication consistently . Report normal sleep pattern but poor appetite the past couple of weeks. He usually eats 1-2 times max/day. Lost about 5bs over last couple of months. Mood is groggy and tired from medication. Report hx of substance use: Mushroom, MDMA, and alcohol but not currently use them. Report using DX5/ cough syrup every other day with last use was a week ago. He stopped using it as it has bad effect on sleep and over thinking and over analyzing when under influent. He is not in school, currently unemployed. He denies SI/SIB/HI/AVH at this current time but report paranoid feeling he was given fake pills by his family. He denies suicide attempts. Report trauma hx (he has extensive trauma hx per previous record) He is A+Ox4, wearing hospital attire, the interview/psychiatric evaluation takes place in OT room. Patient appears stated age, anxious, depressed, and tired as he was in bed sleeping prior to meeting with this provider. Pleasant and cooperative. Speech is WNL. Judgment and insight are fair as he re-started on medications. No SI/SIB/HI/AVH but can be paranoid/delusions. Does not make any delusional statements but states that he stopped taking medication because his family give him fake pills. He recently stops using DX5/ OTC cough syrup which could be contributing factor with non medication adherence lead to the event that he become aggressive toward family members and become paranoid. He does not want to be here but signed CV to get treatment. Goal directed: taking medication as prescribed and continue taking after discharge , and working on anxiety. fair insight of illness and medication hx. Give verbal consent to talk to mother- Isa Del Real at [phone] Formulation/clinical reasoning: Patient is a 24 y.o male with hx of substance use, PTSD, and schizophrenic readmitted to [facility], there were 3 psychiatric admissions hx prior, no other admissions detox elsewhere. He stops taking medication after discharge back in 05/2025. Not FLU with OP psychiatry for aftercare, using substance, increased aggressive behaviors at home toward family members, becoming paranoid/delusions lead to mom having concerns and call EMS. Patient admits on CV, -restart on medications. Poor judmgnet prior to admission. Will continue to monitor with medication titration and offer XIONG to prevent relapsing. PLAN: Patent is on CV. Place on q15 min checks for safety as he currently denies SI/SIB/HI/AVH. Do not appear to be responded to internal stimuli Start PRN medication per admission protocol. Patient is ready to re-start home meds included Zyprxa 15 mg at HS and prazosin 1 mg at HS. I do not re-start on Stimulant at this time until he is more mentally stable. Will consider to re-start in the future. He is open to XIONG options to enhance medication adherence. Will discuss in more details next week once he is more stable on PO and tolerate it well. Oriented to unit and explains rules/meal times/snack and PRN available anytime. Monitor for any complicated problems with tooth pain. He has two wisdom teeth pulled by the dentist Ordered some protocol lab works. Review results with patient when they are available. Will get collateral with family. Patient verbally gives consent to this provider to talk to mother. 11/14/2024 Continue plan of care continue olanzapine Reason for continued inpatient stay Substantial Risk for: inability to function and med/psych decompensation Time Spent With Patient Time: Total time managing care of this patient today ____ minutes.
[2024-11-16] MEDS: traZODone HCL 50 MG TABLET PO (00:26)
[2024-11-16 08:00] VITALS: RESP 18
[2024-11-16] MEDS: Magnesium Hydrox/Alum Hydrox 30 ML ORAL.SUSP PO (08:04)
--- NOTE | 2024-11-16 13:16 | P.PNPSI_ITS ---
Subjective Subjective Date of Service: 11/16/24 Reason For Visit: Psychosis Aggression Subjective Notes: 3 Day Healthcare Proxy: No Guardianship: No Medical Problems Affecting Mental Status: No Interim History: Chart view, discuss with treatment team, and meet with patient Meet with patient in group room. He reports mood is good , asking if he could be discharged today as he misses home and do not like food here. We discuss XIONG option. He declines it saying I do not like injection/needle . He also does not want to stay for medication titration if we switch to other PO medication that carries XIONG such as Ability. He thinks he signed 3-day notice on the day he came in. He thinks he has been here for about a week. Patient then after the assessment, he signed 3-day notice with nursing staff at nurse station which will be this . He hopes he can be discharged earlier than this day. Denies SI/SIB/HI/AVH. He admitted that he was paranoid/delusions prior to this admission but not anymore . He admits that he feels quite irritable . Not able to sleep well d/t the fact that my roommate snored loudly which will be address with nursing staff to see if he can make any room change. He agrees with aftercare treatment plan of either to continue with OP services if they take him back or refer to a new OP services. He also states that he would not use OTC cough syrup again after discharge and will take medications. He agrees with medication change for mood, sleep and psychosis, as well as PTSD. Medication Compliance: Yes Side effects from medications: No Attending Groups: Intermittent Review of Systems Acute medical concerns: No Medical Review of Systems: unchanged Review of Systems Review of Systems Constitutional: Denies fatigue and Denies fever(s) Cardiovascular: Denies chest pain and Denies dyspnea Respiratory: Denies dyspnea Gastrointestinal: Denies abdominal pain Psychiatric: Reports suicidal ideation Endocrine: Denies fatigue Yes all other systems are reviewed and are negative Mental Status Exam Mental Status Exam Narrative: Patient is alert and oriented; behavior is cooperative, but presented with mild to moderate anxiety and irritability; patient is not in distress; dressed in hospital attire with unkempt hair but adequate hygiene; cover body with blanket d/t the low temperature on the unit. mood is described as good and affect incongruent; eye contact is fair and appropriate; Speech is normal rate, volume and prosody and not pressured; no psychomotor agitation/retardation present; thought process is organized and goal directed; Thought content is WNL, pertinent to relevant topics and without any delusional content, paranoid ideation or grandiosity; denies any SI/SIB/HI. Denies AH and there is no evidence of perceptual disturbance. Patient's insight and judgment poor to fair . Diagnostics Vital Signs (24Hr): Vital Signs - 24 hr 11/15/24 20:00 11/16/24 08:00 Temperature 97.8 F Pulse Rate 110 H Respiratory Rate 16 18 Blood Pressure 141/81 H Pulse Oximetry 98 Oxygen Delivery Method Room Air BMI result Body Mass Index 21.4 Labs 11/11/24 21:30 11/14/24 08:26 Medications Medications Current Medications Acetaminophen (Acetaminophen 325 Mg Tablet) 650 mg PO Q6H PRN PRN Reason: Headache/Pain, Scale 1-10 Last Admin: 11/15/24 19:17 Dose: 650 mg Al Hydroxide/Mg Hydroxide (Magnesium Hydrox/Alum Hydrox 30 Ml Oral.Susp) 30 ml PO Q6H PRN PRN Reason: Heartburn/Nausea Last Admin: 11/16/24 08:04 Dose: 30 ml Clonidine HCl (Clonidine Hcl 0.1 Mg Tablet) 0.1 mg PO Q4H PRN; Protocol PRN Reason: moderate anxiety/insomnia Hydroxyzine HCl (Hydroxyzine Hcl 25 Mg Tablet) 25 mg PO Q6H PRN PRN Reason: mild anxiety Last Admin: 11/15/24 23:06 Dose: 25 mg Magnesium Hydroxide (Milk Of Magnesia 30 Ml Oral.Susp) 30 ml PO DAILY PRN PRN Reason: Constipation Nicotine (Nicotine 21 Mg Patch.Td24) 21 mg TRANSDERMA DAILY PRN PRN Reason: smoking cessation Nicotine Polacrilex (Nicotine Polacrilex 2 Mg Gum) 4 mg BUCCAL Q2H PRN PRN Reason: Nicotine Cravings Last Admin: 11/12/24 15:06 Dose: 4 mg Olanzapine (Olanzapine 5 Mg Tablet) 5 mg PO TID PRN PRN Reason: agitation Last Admin: 11/13/24 04:16 Dose: 5 mg Olanzapine (Olanzapine 7.5 Mg Tablet) 15 mg PO BEDTIME MARINA Last Admin: 11/15/24 21:14 Dose: 15 mg Prazosin HCl (Prazosin Hcl 1 Mg Capsule) 1 mg PO BEDTIME MARINA; Protocol Trazodone HCl (Trazodone Hcl 50 Mg Tablet) 50 mg PO BEDTIME MRX1 PRN PRN Reason: Insomnia Last Admin: 11/16/24 00:26 Dose: 50 mg Allergies Allergies Allergy/AdvReac Type Severity Reaction Status Date / Time lactase [From Dairy Aid] AdvReac Rash Verified 11/11/24 21:05 Pork/Porcine Containing AdvReac Nausea Verified 11/11/24 21:05 Products Assessment & Plan Assessment & Plan (1) PTSD (post-traumatic stress disorder): Status: Acute Code(s): F43.10 - Post-traumatic stress disorder, unspecified (2) Schizophrenia: Qualifiers: Schizophrenia type: unspecified Qualified Code(s): F20.9 - Schizophrenia, unspecified Status: Acute Code(s): F20.9 - Schizophrenia, unspecified (3) Dextromethorphan use disorder, moderate: Status: Acute Code(s): F19.20 - Other psychoactive substance dependence, uncomplicated (4) Schizophrenia in partial remission with history of multiple episodes: Status: Acute Code(s): F20.9 - Schizophrenia, unspecified Plan Plan HPI: Patient is a 24 y.o single Chinese speaking male comes to [facility] ED via EMS complaining of auditory hallucinations. According ED record, EMS found patient carrying on a knife. Patient also reported that he has been off medications for several months after last inpatient admission here at [facility] in 05/2024. He does not FLU with aftercare plan or taking medication after discharge. He states he does not want to be here once asked what brought him back to this time but his mom made him to come. I do not want to come . He says I do not know when being asked what concerned mom that make him come here. I was pacing and anxious but not much. I am fine since he already re-started on Olanzapine. Patient seems to be a little guarded at the beginning but is more pleasant and cooperative. He reports he stopped taking medication or see psychiatrist after discharged. Reasons for not taking medications are they tried to kill me . He gives more details that his family tried to give me fake pills . Report that mom usual is the one that manage his medication at home. He opens for XIONG this time to enhance medication adherence and goal is to take medication consistently . Report normal sleep pattern but poor appetite the past couple of weeks. He usually eats 1-2 times max/day. Lost about 5bs over last couple of months. Mood is groggy and tired from medication. Report hx of substance use: Mushroom, MDMA, and alcohol but not currently use them. Report using DX5/ cough syrup every other day with last use was a week ago. He stopped using it as it has bad effect on sleep and over thinking and over analyzing when under influent. He is not in school, currently unemployed. He denies SI/SIB/HI/AVH at this current time but report paranoid feeling he was given fake pills by his family. He denies suicide attempts. Report trauma hx (he has extensive trauma hx per previous record) He is A+Ox4, wearing hospital attire, the interview/psychiatric evaluation takes place in OT room. Patient appears stated age, anxious, depressed, and tired as he was in bed sleeping prior to meeting with this provider. Pleasant and cooperative. Speech is WNL. Judgment and insight are fair as he re-started on medications. No SI/SIB/HI/AVH but can be paranoid/delusions. Does not make any delusional statements but states that he stopped taking medication because his family give him fake pills. He recently stops using DX5/ OTC cough syrup which could be contributing factor with non medication adherence lead to the event that he become aggressive toward family members and become paranoid. He does not want to be here but signed CV to get treatment. Goal directed: taking medication as prescribed and continue taking after discharge , and working on anxiety. fair insight of illness and medication hx. Give verbal consent to talk to mother- Isa Del Real at [phone] Formulation/clinical reasoning: Patient is a 24 y.o male with hx of substance use, PTSD, and schizophrenic readmitted to , there were 3 psychiatric admissions hx prior, no other admissions detox elsewhere. He stops taking medication after discharge back in 05/2025. Not FLU with OP psychiatry for aftercare, using substance, increased aggressive behaviors at home toward family members, becoming paranoid/delusions lead to mom having concerns and call EMS. Patient admits on CV, -restart on medications. Poor judmgnet prior to admission. Will continue to monitor with medication titration and offer XIONG to prevent relapsing. Hospital Course: 11/14/2024: Continue plan of care continue olanzapine 11/15/2024: Continue plan of care continue olanzapine 11/16/24: Start Prozosin 1mg at HS for PTSD. Increase Zyprexa from 15 to 20mg at HS targeting mood and psychosis. Signed 3-day notice. Decline medication titration to get XIONG on board. Some sleep problem. Hope that Zyprexa increased would be helpful with sleep as it can be sedated. PLAN: Patent is on CV. Place on q15 min checks for safety Contineu with PRN medication per admission protocol. Monitor for any complicated problems with tooth pain. He has two wisdom teeth pulled by the dentist Will get collateral with family. Patient verbally gives consent to this provider to talk to mother. Change Zyprexa from 15 to 20mg at HS to target mood and psychosis. Prazosin 1mg at HS for PTSD. Patient educated on: diagnosis, medication risk/benefits and therapeutic strategies Informed Consent: understands Reason for continued inpatient stay Substantial Risk for: med/psych decompensation Time Spent With Patient Time: Total time managing care of this patient today ____ minutes.
[2024-11-16] MEDS: hydrOXYzine HCL 25 MG TABLET PO (19:17)
[2024-11-16 20:00] VITALS: RESP 16; O2SAT 98
[2024-11-16] MEDS: OLANZapine 10 MG TABLET 20 MG PO (21:59)
[2024-11-16 22:00] VITALS: BP 132/81
[2024-11-16] MEDS: Prazosin HCL 1 MG CAPSULE PO (22:00)
[2024-11-17 08:00] VITALS: RESP 18
--- NOTE | 2024-11-17 08:50 | HO.PSYCHPN ---
Subjective Subjective Date of Service: 11/17/24 Reason For Visit: Psychosis Aggression Healthcare Proxy: No Guardianship: No Medical Problems Affecting Mental Status: No Interim History: Medical record and nursing notes reviewed; case discussed during rounds with team, and met with patient for supportive therapy/psychoeducation, as well as medication management. You made good patient in group room, he appears less irritable compared to yesterday. Report that his roommate is snoring loudly and he having trouble sleeping. He is not hyper focus on the discharge today. He signed a 3 day notice with the intention to leave the hospital which is up on the latest. He missed home and he has missed food at home as he usually does not eat food like we have offered here. He talks about start back him on stimulant. However, due to him wanting to go on the days I do not have enough time to monitor him if I restarted stimulants, he understand and agree with the plan. He would like to have trazodone to scheduled for him instead of as needed. I asked him to be more visible and attempted to more groups as he spent most of the morning in bed which he also agree with that. He deny any side effects. Denies angry irritable feeling, constricted affect. Paranoia and delusional thoughts has improved after restart on Zyprexa. He continued to improve with increased dose. Per nursing, patient was in bed slept most of the evening yesterday which could be affected his sleep at night. In general he has enough sleep. With the encouragement of and out to the unit for groups hopefully he is does not sleep a lot during the day. Per nursing who has known him from the past admissions, patient almost always presented like this. He probably is back to his baseline. We will continue to monitor if any side effects or adverse effects from medications as it could take another couple more days to see the effectiveness Medication Compliance: Yes Side effects from medications: No Attending Groups: Intermittent Review of Systems Acute medical concerns: No Medical Review of Systems: unchanged Review of Systems Review of Systems Constitutional: Denies fatigue and Denies fever(s) Cardiovascular: Denies chest pain and Denies dyspnea Respiratory: Denies dyspnea Gastrointestinal: Denies abdominal pain Psychiatric: Reports suicidal ideation Endocrine: Denies fatigue Yes all other systems are reviewed and are negative Mental Status Exam Mental Status Exam Narrative: Patient is alert and oriented; behavior is cooperative, less anxiety and irtiable compare to yesterday. Patient is not in distress; dressed in hospital attire with unkempt hair but adequate hygiene; mood is described as good and affect incongruent; eye contact appropriate; Speech is normal rate, volume and prosody and not pressured; no psychomotor agitation/retardation present; thought process is organized and goal directed; Thought content is WNL, pertinent to relevant topics and without any delusional content, paranoid ideation or grandiosity; denies any SI/SIB/HI. Denies AH and there is no evidence of perceptual disturbance. Patient's insight and judgment impoving . Diagnostics Vital Signs (24Hr): Vital Signs - 24 hr 11/16/24 20:00 11/16/24 22:00 11/17/24 08:00 Respiratory Rate 16 18 Blood Pressure 132/81 Pulse Oximetry 98 Oxygen Delivery Method Room Air BMI result Body Mass Index 21.4 Labs 11/11/24 21:30 11/14/24 08:26 Medications Medications Current Medications Acetaminophen (Acetaminophen 325 Mg Tablet) 650 mg PO Q6H PRN PRN Reason: Headache/Pain, Scale 1-10 Last Admin: 11/15/24 19:17 Dose: 650 mg Al Hydroxide/Mg Hydroxide (Magnesium Hydrox/Alum Hydrox 30 Ml Oral.Susp) 30 ml PO Q6H PRN PRN Reason: Heartburn/Nausea Last Admin: 11/16/24 08:04 Dose: 30 ml Clonidine HCl (Clonidine Hcl 0.1 Mg Tablet) 0.1 mg PO Q4H PRN; Protocol PRN Reason: moderate anxiety/insomnia Hydroxyzine HCl (Hydroxyzine Hcl 25 Mg Tablet) 25 mg PO Q6H PRN PRN Reason: mild anxiety Last Admin: 11/16/24 19:17 Dose: 25 mg Magnesium Hydroxide (Milk Of Magnesia 30 Ml Oral.Susp) 30 ml PO DAILY PRN PRN Reason: Constipation Nicotine (Nicotine 21 Mg Patch.Td24) 21 mg TRANSDERMA DAILY PRN PRN Reason: smoking cessation Nicotine Polacrilex (Nicotine Polacrilex 2 Mg Gum) 4 mg BUCCAL Q2H PRN PRN Reason: Nicotine Cravings Last Admin: 11/12/24 15:06 Dose: 4 mg Olanzapine (Olanzapine 10 Mg Tablet) 20 mg PO BEDTIME MARINA Last Admin: 11/16/24 21:59 Dose: 20 mg Olanzapine (Olanzapine 5 Mg Tablet) 5 mg PO DAILY PRN PRN Reason: agitation Prazosin HCl (Prazosin Hcl 1 Mg Capsule) 1 mg PO BEDTIME MARINA; Protocol Last Admin: 11/16/24 22:00 Dose: 1 mg Trazodone HCl (Trazodone Hcl 50 Mg Tablet) 50 mg PO BEDTIME MRX1 PRN PRN Reason: Insomnia Last Admin: 11/16/24 00:26 Dose: 50 mg Allergies Allergies Allergy/AdvReac Type Severity Reaction Status Date / Time lactase [From Dairy Aid] AdvReac Rash Verified 11/11/24 21:05 Pork/Porcine Containing AdvReac Nausea Verified 11/11/24 21:05 Products Assessment & Plan Assessment & Plan (1) PTSD (post-traumatic stress disorder): Status: Acute Code(s): F43.10 - Post-traumatic stress disorder, unspecified (2) Schizophrenia: Qualifiers: Schizophrenia type: unspecified Qualified Code(s): F20.9 - Schizophrenia, unspecified Status: Acute Code(s): F20.9 - Schizophrenia, unspecified (3) Dextromethorphan use disorder, moderate: Status: Acute Code(s): F19.20 - Other psychoactive substance dependence, uncomplicated (4) Schizophrenia in partial remission with history of multiple episodes: Status: Acute Code(s): F20.9 - Schizophrenia, unspecified Plan Plan HPI: Patient is a 24 y.o single [place] speaking male comes to [facility] ED via EMS complaining of auditory hallucinations. According ED record, EMS found patient carrying on a knife. Patient also reported that he has been off medications for several months after last inpatient admission here at [facility] in 05/2024. He does not FLU with aftercare plan or taking medication after discharge. He states he does not want to be here once asked what brought him back to this time but his mom made him to come. I do not want to come . He says I do not know when being asked what concerned mom that make him come here. I was pacing and anxious but not much. I am fine since he already re-started on Olanzapine. Patient seems to be a little guarded at the beginning but is more pleasant and cooperative. He reports he stopped taking medication or see psychiatrist after discharged. Reasons for not taking medications are they tried to kill me . He gives more details that his family tried to give me fake pills . Report that mom usual is the one that manage his medication at home. He opens for XIONG this time to enhance medication adherence and goal is to take medication consistently . Report normal sleep pattern but poor appetite the past couple of weeks. He usually eats 1-2 times max/day. Lost about 5bs over last couple of months. Mood is groggy and tired from medication. Report hx of substance use: Mushroom, MDMA, and alcohol but not currently use them. Report using DX5/ cough syrup every other day with last use was a week ago. He stopped using it as it has bad effect on sleep and over thinking and over analyzing when under influent. He is not in school, currently unemployed. He denies SI/SIB/HI/AVH at this current time but report paranoid feeling he was given fake pills by his family. He denies suicide attempts. Report trauma hx (he has extensive trauma hx per previous record) He is A+Ox4, wearing hospital attire, the interview/psychiatric evaluation takes place in OT room. Patient appears stated age, anxious, depressed, and tired as he was in bed sleeping prior to meeting with this provider. Pleasant and cooperative. Speech is WNL. Judgment and insight are fair as he re-started on medications. No SI/SIB/HI/AVH but can be paranoid/delusions. Does not make any delusional statements but states that he stopped taking medication because his family give him fake pills. He recently stops using DX5/ OTC cough syrup which could be contributing factor with non medication adherence lead to the event that he become aggressive toward family members and become paranoid. He does not want to be here but signed CV to get treatment. Goal directed: taking medication as prescribed and continue taking after discharge , and working on anxiety. fair insight of illness and medication hx. Give verbal consent to talk to mother- Isa Del Real at [phone] Formulation/clinical reasoning: Patient is a 24 y.o male with hx of substance use, PTSD, and schizophrenic readmitted to [facility], there were 3 psychiatric admissions hx prior, no other admissions detox elsewhere. He stops taking medication after discharge back in 05/2025. Not FLU with OP psychiatry for aftercare, using substance, increased aggressive behaviors at home toward family members, becoming paranoid/delusions lead to mom having concerns and call EMS. Patient admits on CV, -restart on medications. Poor judmgnet prior to admission. Will continue to monitor with medication titration and offer XIONG to prevent relapsing. Hospital Course: 11/14/2024: Continue plan of care continue olanzapine 11/15/2024: Continue plan of care continue olanzapine 11/16/24: Start Prozosin 1mg at HS for PTSD. Increase Zyprexa from 15 to 20mg at HS targeting mood and psychosis. Signed 3-day notice. Decline medication titration to get XIONG on board. Some sleep problem. Hope that Zyprexa increased would be helpful with sleep as it can be sedated. 11/17/24: No medication change today except for the trazodone I will schedule it at bedtime instead up as needed. Encourage him to be up and out to the unit for groups and activities. Denies side effects from medications. Treatment team continue to working on referring patient to outpatient services for aftercare PLAN: Patent is on CV. Side 3 day notice on November 16 which up on . Potentially will discharge him on there is no safety concerns and no side effects from medications. Place on q15 min checks for safety Contineu with PRN medication per admission protocol. Monitor for any complicated problems with tooth pain. He has two wisdom teeth pulled by the dentist. No complain about pain Treatment team is working on referring patient to outpatient services for aftercare and do collateral with the family regarding the discharge and progress Continue with Zyprexa 20mg at HS to target mood and psychosis. Prazosin 1mg at HS for PTSD. Trazodone scheduled at bedtime Patient educated on: diagnosis, substance abuse and therapeutic strategies Informed Consent: understands Reason for continued inpatient stay Substantial Risk for: med/psych decompensation Time Spent With Patient Time: Total time managing care of this patient today ____ minutes.
[2024-11-17] MEDS: Nicotine Polacrilex 2 MG GUM 4 MG BUCCAL (18:27)
[2024-11-17 20:00] VITALS: BP 123/67; PULSE 99; RESP 18; TEMP 36.8; O2SAT 98
[2024-11-17 21:18] VITALS: BP 123/73
[2024-11-17] MEDS: Prazosin HCL 1 MG CAPSULE PO (21:18)
[2024-11-17] MEDS: traZODone HCL 50 MG TABLET PO (21:18)
[2024-11-17] MEDS: OLANZapine 10 MG TABLET 20 MG PO (21:18)
[2024-11-18 08:00] VITALS: BP 127/59; PULSE 98; RESP 16; TEMP 36.6; O2SAT 99
--- NOTE | 2024-11-18 15:11 | P.PNPSI_ITS ---
Subjective Subjective Date of Service: 11/18/24 Reason For Visit: Psychosis Aggression Subjective Notes: Conditional Voluntary and 3 Day Healthcare Proxy: No Guardianship: No Medical Problems Affecting Mental Status: No Interim History: Medical record and nursing notes reviewed; case discussed during rounds with team, and met with patient for supportive therapy/psychoeducation, as well as medication management. Meet with patient in group room, he does not want to eat lunch as he does not like food here, wating to his turn to take shower. Denies side effects. Sleep affected by roommate who snored loudly at night. He does not appear to be irritable but with mild depression and anxiety. Goal directed. He is looking to be discharged tomorrow with plan to continue and consistently with medications. Continue to encourage groups for coping skills and social with peers and staff. He is receptive to the plan. Medication Compliance: Yes Side effects from medications: No Attending Groups: Intermittent Review of Systems Acute medical concerns: No Medical Review of Systems: unchanged Review of Systems Review of Systems Constitutional: Denies fatigue and Denies fever(s) Cardiovascular: Denies chest pain and Denies dyspnea Respiratory: Denies dyspnea Gastrointestinal: Denies abdominal pain Psychiatric: denies suicidal ideation Endocrine: Denies fatigue Yes all other systems are reviewed and are negative Mental Status Exam Mental Status Exam Narrative: Patient is alert and oriented; behavior is calmer, more pleasnant and cooperative, mild anxiety/depression. Patient is not in distress; dressed in hospital attire with adequate hygiene; mood is described as good and better and affect congruent; eye contact appropriate; Speech is normal rate, volume and prosody and not pressured; no psychomotor agitation/retardation present; thought process is more organized and goal directed; Thought content is WNL, pertinent to relevant topics and without any delusional content, paranoid ideation or grandiosity; denies any SI/SIB/HI. Denies AH and there is no evidence of perceptual disturbance. Patient's insight and judgment fair. Diagnostics Vital Signs (24Hr): Vital Signs - 24 hr 11/17/24 20:00 11/17/24 21:18 11/18/24 08:00 Temperature 98.2 F 97.8 F Pulse Rate 99 98 Respiratory Rate 18 16 Blood Pressure 123/67 123/73 127/59 L Pulse Oximetry 98 99 Oxygen Delivery Method Room Air Room Air BMI result Body Mass Index 21.4 Labs 11/11/24 21:30 11/14/24 08:26 Medications Medications Current Medications Acetaminophen (Acetaminophen 325 Mg Tablet) 650 mg PO Q6H PRN PRN Reason: Headache/Pain, Scale 1-10 Last Admin: 11/15/24 19:17 Dose: 650 mg Al Hydroxide/Mg Hydroxide (Magnesium Hydrox/Alum Hydrox 30 Ml Oral.Susp) 30 ml PO Q6H PRN PRN Reason: Heartburn/Nausea Last Admin: 11/16/24 08:04 Dose: 30 ml Hydroxyzine HCl (Hydroxyzine Hcl 25 Mg Tablet) 25 mg PO Q6H PRN PRN Reason: mild anxiety Last Admin: 11/16/24 19:17 Dose: 25 mg Magnesium Hydroxide (Milk Of Magnesia 30 Ml Oral.Susp) 30 ml PO DAILY PRN PRN Reason: Constipation Nicotine (Nicotine 21 Mg Patch.Td24) 21 mg TRANSDERMA DAILY PRN PRN Reason: smoking cessation Nicotine Polacrilex (Nicotine Polacrilex 2 Mg Gum) 4 mg BUCCAL Q2H PRN PRN Reason: Nicotine Cravings Last Admin: 11/17/24 18:27 Dose: 2 mg Olanzapine (Olanzapine 10 Mg Tablet) 20 mg PO BEDTIME MARINA Last Admin: 11/17/24 21:18 Dose: 20 mg Olanzapine (Olanzapine 5 Mg Tablet) 5 mg PO DAILY PRN PRN Reason: agitation Prazosin HCl (Prazosin Hcl 1 Mg Capsule) 1 mg PO BEDTIME MARINA; Protocol Last Admin: 11/17/24 21:18 Dose: 1 mg Trazodone HCl (Trazodone Hcl 50 Mg Tablet) 50 mg PO BEDTIME MARINA Last Admin: 11/17/24 21:18 Dose: 50 mg Allergies Allergies Allergy/AdvReac Type Severity Reaction Status Date / Time lactase [From Dairy Aid] AdvReac Rash Verified 11/11/24 21:05 Pork/Porcine Containing AdvReac Nausea Verified 11/11/24 21:05 Products Assessment & Plan Assessment & Plan (1) PTSD (post-traumatic stress disorder): Status: Acute Code(s): F43.10 - Post-traumatic stress disorder, unspecified (2) Schizophrenia: Qualifiers: Schizophrenia type: unspecified Qualified Code(s): F20.9 - Schizophrenia, unspecified Status: Acute Code(s): F20.9 - Schizophrenia, unspecified (3) Dextromethorphan use disorder, moderate: Status: Acute Code(s): F19.20 - Other psychoactive substance dependence, uncomplicated (4) Schizophrenia in partial remission with history of multiple episodes: Status: Acute Code(s): F20.9 - Schizophrenia, unspecified Plan Plan HPI: Patient is a 24 y.o single [place] speaking male comes to [facility] ED via EMS complaining of auditory hallucinations. According ED record, EMS found patient carrying on a knife. Patient also reported that he has been off medications for several months after last inpatient admission here at [facility] in 05/2024. He does not FLU with aftercare plan or taking medication after discharge. He states he does not want to be here once asked what brought him back to this time but his mom made him to come. I do not want to come . He says I do not know when being asked what concerned mom that make him come here. I was pacing and anxious but not much. I am fine since he already re-started on Olanzapine. Patient seems to be a little guarded at the beginning but is more pleasant and cooperative. He reports he stopped taking medication or see psychiatrist after discharged. Reasons for not taking medications are they tried to kill me . He gives more details that his family tried to give me fake pills . Report that mom usual is the one that manage his medication at home. He opens for XIONG this time to enhance medication adherence and goal is to take medication consistently . Report normal sleep pattern but poor appetite the past couple of weeks. He usually eats 1-2 times max/day. Lost about 5bs over last couple of months. Mood is groggy and tired from medication. Report hx of substance use: Mushroom, MDMA, and alcohol but not currently use them. Report using DX5/ cough syrup every other day with last use was a week ago. He stopped using it as it has bad effect on sleep and over thinking and over analyzing when under influent. He is not in school, currently unemployed. He denies SI/SIB/HI/AVH at this current time but report paranoid feeling he was given fake pills by his family. He denies suicide attempts. Report trauma hx (he has extensive trauma hx per previous record) He is A+Ox4, wearing hospital attire, the interview/psychiatric evaluation takes place in OT room. Patient appears stated age, anxious, depressed, and tired as he was in bed sleeping prior to meeting with this provider. Pleasant and cooperative. Speech is WNL. Judgment and insight are fair as he re-started on medications. No SI/SIB/HI/AVH but can be paranoid/delusions. Does not make any delusional statements but states that he stopped taking medication because his family give him fake pills. He recently stops using DX5/ OTC cough syrup which could be contributing factor with non medication adherence lead to the event that he become aggressive toward family members and become paranoid. He does not want to be here but signed CV to get treatment. Goal directed: taking medication as prescribed and continue taking after discharge , and working on anxiety. fair insight of illness and medication hx. Give verbal consent to talk to mother- Isa Del Real at [phone] Formulation/clinical reasoning: Patient is a 24 y.o male with hx of substance use, PTSD, and schizophrenic readmitted to , there were 3 psychiatric admissions hx prior, no other admissions detox elsewhere. He stops taking medication after discharge back in 05/2025. Not FLU with OP psychiatry for aftercare, using substance, increased aggressive behaviors at home toward family members, becoming paranoid/delusions lead to mom having concerns and call EMS. Patient admits on CV, -restart on medications. Poor judmgnet prior to admission. Will continue to monitor with medication titration and offer XIONG to prevent relapsing. Hospital Course: 11/14/2024: Continue plan of care continue olanzapine 11/15/2024: Continue plan of care continue olanzapine 11/16/24: Start Prozosin 1mg at HS for PTSD. Increase Zyprexa from 15 to 20mg at HS targeting mood and psychosis. Signed 3-day notice. Decline medication titration to get XIONG on board. Some sleep problem. Hope that Zyprexa increased would be helpful with sleep as it can be sedated. 11/17/24: No medication change today except for the trazodone I will schedule it at bedtime instead up as needed. Encourage him to be up and out to the unit for groups and activities. Denies side effects from medications. Treatment team continue to working on referring patient to outpatient services for aftercare. 11/18/24: No medication change, denies side effects. Continue having same roommate who snored loudly which affects his sleep at night but report able sleep. Agree with OP services for aftercare and medication will send to preferred pharmacy. Collateral done with family by SW regarding discharge plan. Denies SI/SIB/HI/AVH, less anxious do not pace much . No delusions or paranoid thoughts. Encourage to eat as he does not like food here as he usually eats Vietnamese food at home. PLAN: Patent is on CV. Side 3 day notice on November 16 which up on . Potentially will discharge him on there is no safety concerns and no side effects from medications. Place on q15 min checks for safety Contineu with PRN medication per admission protocol. Monitor for any complicated problems with tooth pain. He has two wisdom teeth pulled by the dentist. No complain about pain Treatment team is working on referring patient to outpatient services for aftercare and do collateral with the family regarding the discharge and progress Continue with Zyprexa 20mg at HS to target mood and psychosis. Prazosin 1mg at HS for PTSD. Trazodone scheduled at bedtime Patient educated on: diagnosis, medication risk/benefits and therapeutic strategies Informed Consent: understands Reason for continued inpatient stay Substantial Risk for: med/psych decompensation Time Spent With Patient Time: Total time managing care of this patient today ____ minutes.
[2024-11-18] MEDS: Nicotine Polacrilex 2 MG GUM 4 MG BUCCAL (18:41)
[2024-11-18 20:00] VITALS: BP 130/77; PULSE 107; TEMP 37; O2SAT 98
[2024-11-18 20:10] VITALS: BP 130/77
[2024-11-18] MEDS: traZODone HCL 50 MG TABLET PO (20:10)
[2024-11-18] MEDS: Prazosin HCL 1 MG CAPSULE PO (20:10)
[2024-11-18] MEDS: OLANZapine 10 MG TABLET 20 MG PO (20:10)
[2024-11-19 07:00] VITALS: BMI 22.9
[2024-11-19 08:00] VITALS: RESP 16
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
== END 2024-11-19 11:56 | disposition home or self-care (01) | DRG 750 ==
LOC: HO.ED 11-12 01:11 → HO.PM5 11-12 12:50
PROVIDERS: Emergency Medicine; Admitting Provider Psychiatry & Neurology Psychiatry; Emergency Provider Emergency Medicine; PCP Internal Medicine; Visit Provider Psychiatry & Neurology Psychiatry
DX: F20.9 Schizophrenia, unspecified (principal); Z91.148 Patient's other noncompliance with medication regimen for other reason; F19.20 Other psychoactive substance dependence, uncomplicated; F43.10 Post-traumatic stress disorder, unspecified; Z79.899 Other long term (current) drug therapy
CPT/HCPCS: 36415; 80053; 80061; 80307; 81001; 83036; 85025; 93005; 99285; S9485

== ENCOUNTER → 2024-11-12 09:24 | Outpatient (BNV) | payer OTHER, SELFPAY | PROVIDERS: Admitting Provider Psychiatry & Neurology Psychiatry; Emergency Provider Emergency Medicine; PCP Internal Medicine; Visit Provider Internal Medicine | DX: Z13.6 Encounter for screening for cardiovascular disorders (principal) | CPT/HCPCS: 93010 ==

== ENCOUNTER → 2024-11-12 12:41 | Outpatient (BNV) | payer OTHER, SELFPAY | PROVIDERS: Admitting Provider Psychiatry & Neurology Psychiatry; Emergency Provider Emergency Medicine; PCP Internal Medicine; Visit Provider Nurse Practitioner Psychiatric/Mental Health | DX: F20.0 Paranoid schizophrenia (principal); F19.20 Other psychoactive substance dependence, uncomplicated; F43.11 Post-traumatic stress disorder, acute | CPT/HCPCS: 99232 ==

== ENCOUNTER → 2024-11-12 12:41 | Outpatient (BNV) | payer OTHER, SELFPAY | PROVIDERS: Admitting Provider Psychiatry & Neurology Psychiatry; Emergency Provider Emergency Medicine; PCP Internal Medicine; Visit Provider Psychiatry & Neurology Psychiatry | DX: F20.0 Paranoid schizophrenia (principal); F19.20 Other psychoactive substance dependence, uncomplicated; F43.11 Post-traumatic stress disorder, acute | CPT/HCPCS: 99231 ==

== ENCOUNTER 2024-11-30 00:33 | Inpatient (IN) | payer OTHER, SELFPAY ==
--- NOTE | 2024-11-30 | ECG_ITS ---
Test Reason : MEDICAL CLEARANCE Blood Pressure : */* mmHG Vent. Rate : 116 BPM Atrial Rate : 116 BPM P-R Int : 122 ms QRS Dur : 90 ms QT Int : 330 ms P-R-T Axes : -10 4 28 degrees QTcB Int : 458 ms Sinus tachycardia Minimal voltage criteria for LVH, may be normal variant ( R in aVL ) Borderline ECG When compared with ECG of 12-Nov-2024 09:24, Vent. rate has increased by 45 bpm Questionable change in QRS axis Referred By: Generic ED Physician Electronically Signed By: FITO BRITT
--- NOTE | ~2024-11-30 | XR_ITS ---
CLINICAL HISTORY: ?pneumonia 1 view chest x-ray. Comparison: None Findings: The lungs appear clear. There is no radiographic evidence of pneumonia. Cardiomediastinal silhouette is within normal limits. IMPRESSION: No acute cardiopulmonary abnormality. This document has been electronically signed by: Noe Olivas MD on 11/30/2024 02:24:49
[2024-11-30 00:35] VITALS: BP 160/100; PULSE 60; O2SAT 97
--- NOTE | 2024-11-30 00:41 | ED.PSYCH ---
HPI - Psych General Chief Complaint: Psychiatric Symptoms Stated Complaint: [id number] Time Seen by Provider: 11/30/24 00:40 Source: patient and old records reviewed Mode of arrival: EMS Limitations: altered mental status History of Present Illness ED Provider: HPI Narrative: Patient's history of schizophrenia, PTSD and marijuana abuse comes here for for acting vaguely not taking his medication for last few days at home he was chasing her brother thinking he was sour patch kid comes here with a flat affect did not see any SI or HI says that has not take med him because of want to chill was section 12 by PD Related Data Previous Rx's ?Medication ?Instructions ?Recorded hydroxyzine HCl 25 mg tablet 25 mg PO Q6H PRN Anxiety 30 days 11/19/24 #90 tabs olanzapine 10 mg tablet 20 mg (2 x 10 mg) PO BEDTIME #30 11/19/24 tabs prazosin 1 mg capsule 1 mg PO BEDTIME 30 days #30 caps 11/19/24 trazodone 50 mg tablet 50 mg PO BEDTIME #30 tabs 11/19/24 Allergies Allergy/AdvReac Type Severity Reaction Status Date / Time lactase (From Dairy Aid) AdvReac Rash Verified 11/30/24 00:42 Pork/Porcine Containing AdvReac Nausea Verified 11/30/24 00:42 Products Review of Systems Review of Systems: Yes Unobtainable due to mental condition [facility] Past Medical History Medical History (Updated 11/30/24 @ 20:50 by Moreno Brunson RN) Schizophrenia Dextromethorphan use disorder, moderate PTSD (post-traumatic stress disorder) No known health problems Social History Social History Household Members: Family Household Members Other:: mom and aunt Housing: Apartment Do you presently have visiting nurse or other home services: No Unable to assess alcohol history related to: Refusing to respond Alcohol intake: current Alcohol intake frequency: does not drink Patient Tobacco Use Status: Former Tobacco user Tobacco use type: Cigar Smoked in Last 30 Days: No e-Cigarette/Vaping Use: Never Used Patient Interested in Nicotine Replacement: No Patient Given Instructions on How to Stop Smoking: No (Non-smoker) Second Hand Smoke Exposure: No Use of substances other than those prescribed or required for medical reasons: No Substance Use Type: Marijuana Currently Displaying Signs/Symptoms of Drug Intoxication Withdrawal: No Have you been hit, kicked, punched, or otherwise hurt by someone within the past year? If so, by whom?: No Do you feel safe in your current relationship?: No Current Relationship Is there a partner from a previous relationship who is making you feel unsafe now?: No Are you made to feel afraid or neglected: No Advance Directives: Yes Advance Directives on File: Yes Advance Directives Date on File: 06/11/24 Do you have thoughts of harming others: None Do you have a plan to hurt others: No Plan Recently lost weight without trying: No How much weight loss: Not applicable Eating poorly because of decreased appetite: No Nutrition screen score: 0 Nutrition Risks: No Nutritional Risk Poor oral hygiene: No service: No Sexual orientation: Straight/Heterosexual Physical Exam Vital Signs: Vital Signs: Last Vital Signs Temp 97.5 F 12/01/24 20:00 Pulse 90 12/01/24 20:00 Resp 16 12/01/24 20:00 BP 133/85 12/01/24 21:05 Pulse Ox 98 12/01/24 20:00 O2 Del Method Room Air 12/01/24 20:00 BMI result Body Mass Index 20.5 Appearance: Alert. Oriented X3. No acute distress. Anxious walking around saying only few questions Eyes: PERRLA, No Nystagmus ENT: Pharynx normal. Oral Mucosa moist Neck: Normal inspection. Neck supple. CVS: Normal heart rate and rhythm. Pulses normal. Respiratory: No respiratory distress. Equal air entry bilateral, no wheezing/rales/rhonchi Abdomen: Soft and nontender. Bowel sounds are present, no mass palpable, no CVA tenderness Skin: Skin warm and dry. Normal skin color. Normal skin turgor. Extremities: No lower extremity edema. No calf tenderness Neuro: Oriented X 3. No motor deficit. No sensory deficit.No cerebellar signs , cranial nerves II-XII intact Course Course Course Narrative: Time: 08:04 Date: 11/30/24 Provider: Grant Bliss MD Patient in physician observation for psychiatric evaluation.? The patient presented early this morning after exhibiting agitated behavior that was felt to be consistent with an exacerbation of schizophrenia.. No current complaints. VS stable.? Patient is in pending CARE team evaluation. Will continue to monitor. Reevaluation(s) Reevaluation #1: Patient is seen with the care team and will be a bed search for inpatient psychiatric care. The patient is already on a section 12 Time: 18:03 Reevaluation #2: Time: 19:00 Date: 11/30/24 Provider: Grant Bliss MD Physician observation ended at 19:00. Patient to be admitted as inpatient to psychiatry. Medications Administered Generic Name Dose Route Start Last Admin Trade Name Freq PRN Reason Stop Dose Admin Hydroxyzine HCl 25 mg 11/30/24 19:53 11/30/24 21:23 Hydroxyzine Hcl 25 Mg Tablet PO 25 mg Q6H PRN Administration Anxiety Nicotine Polacrilex 4 mg 11/30/24 19:53 12/01/24 16:29 Nicotine Polacrilex 2 Mg Gum BUCCAL 4 mg Q2H PRN Administration Nicotine Cravings Olanzapine 20 mg 11/30/24 21:00 12/01/24 21:05 Olanzapine 10 Mg Tablet PO 20 mg BEDTIME MARINA Administration Prazosin HCl 1 mg 11/30/24 21:00 12/01/24 21:05 Prazosin Hcl 1 Mg Capsule PO 1 mg BEDTIME MARINA Administration Protocol Trazodone HCl 50 mg 11/30/24 21:00 12/01/24 21:05 Trazodone Hcl 50 Mg Tablet PO 50 mg BEDTIME MARINA Administration Trazodone HCl 50 mg 11/30/24 19:53 11/30/24 21:23 Trazodone Hcl 50 Mg Tablet PO 50 mg BEDTIME PRN Administration Insomnia Discontinued Medications Generic Name Dose Route Start Last Admin Trade Name Freq PRN Reason Stop Dose Admin Olanzapine 20 mg 11/30/24 01:13 11/30/24 01:16 Olanzapine 10 Mg Tablet PO 11/30/24 01:14 20 mg ONCE ONE Administration Trazodone HCl 50 mg 11/30/24 01:13 11/30/24 01:16 Trazodone Hcl 50 Mg Tablet PO 11/30/24 01:14 50 mg ONCE ONE Administration Medical Decision Making Lab Data 11/30/24 01:33 11/30/24 01:33 Labs: Lab Results 11/30/24 11/30/24 Range/Units 01:33 03:06 WBC 9.9 (4.8-10.8) X10*3/uL RBC 5.02 (4.60-5.80) X10*6/uL Hgb 15.7 (14.0-18.0) g/dl Hct 44.7 (42.0-52.0) % MCV 89.0 (80.0-98.0) fL MCH 31.3 (27.0-33.0) pg MCHC 35.1 (31.0-36.0) g/dl RDW 13.2 (11.0-16.0) % Plt Count 320 (160-400) X10*3/uL MPV 8.8 L (9.4-12.4) fL Immature Gran % (Auto) 0.4 (0.0-0.4) % Neut % (Auto) 77.1 H (45-73) % Lymph % (Auto) 13.8 L (20-40) % [place] % (Auto) 8.0 (2-11) % Eos % (Auto) 0.0 (0-4) % Baso % (Auto) 0.7 (0-2) % Lymph # (Auto) 1.4 (1.2-4.9) X10*3/uL [place] # (Auto) 0.8 (0.1-1.2) X10*3/uL Eos # (Auto) 0.0 (0.0-0.4) X10*3/uL Baso # (Auto) 0.1 (0.0-0.2) X10*3/uL Abs Immat Gran (auto) 0.04 H (0.00-0.03) X10*3/uL Absolute Neuts (auto) 7.6 (2.0-8.3) x10*3/uL Absolute Nucleated RBC 0.000 (0.0-0.012) X10*3/uL Nucleated RBC % (auto) 0.0 (0.0-0.2) /100WBC Sodium 141 (135-145) mmol/L Potassium 3.4 (3.3-5.1) mmol/L Chloride 104 (96-108) mmol/L Carbon Dioxide 19 L (22-29) mmol/L Anion Gap 21 H (12-20) BUN 8 L (9-16) mg/dL Creatinine 0.88 (0.5-1.4) mg/dL Estim Creat Clear Calc 113.0 Estimated GFR > 60 Random Glucose 89 (60-115) mg/dL Calcium 9.9 (8.4-10.2) mg/dL Urine Color Yellow Urine Appearance Clear Urine pH 6.5 (5.0-9.0) Ur Specific [place] 1.010 (1.005-1.025) Urine Protein Negative (Neg-Trace) mg/dL Urine Glucose (UA) Negative (Negative) mg/dL Urine Ketones Negative (Negative) mg/dL Urine Blood Negative (Negative) Urine Nitrite Negative (Negative) Ur Leukocyte Esterase Negative (Negative) Urine RBC 0-2 (0-2) /HPF Urine WBC 0-5 (0-5) /HPF Ur Squamous Epith Cells 0-2 (0-2) /HPF Urine Bacteria None Seen (None Seen) Hyaline Casts 0-2 (0-2) /LPF Salicylates < 5.0 L (15-30) mg/dL Urine Opiates Screen Not Detected (Not Detect) Ur Buprenorphine Scrn Not Detected (Not Detect) ng/mL Ur Oxycodone Screen Not Detected (Not Detect) ng/mL Urine Methadone Screen Not Detected (Not Detect) ng/mL Urine Fentanyl Screen Not Detected (Not Detect) Acetaminophen < 3 (<30) mcg/mL Ur Barbiturates Screen Not Detected (Not Detect) Ur Phencyclidine Scrn Not Detected (Not Detect) Ur Amphetamines Screen Not Detected (Not Detect) U Benzodiazepines Scrn Not Detected (Not Detect) Urine Cocaine Screen Not Detected (Not Detect) U Marijuana (THC) Screen Not Detected (Not Detect) Ethyl Alcohol < 10 mg/dL Influenza Type A (PCR) NEGATIVE (Negative) Influenza Type B (PCR) NEGATIVE (Negative) RSV RNA Qual (PCR) NEGATIVE (Negative) SARS-CoV-2 RNA (RT-PCR) NEGATIVE (Negative) Discharge Plan Discharge Clinical Impression: MDD (major depressive disorder) Patient Disposition: Admitted As Inpatient Interventions: Admission Worksheet (ED) Last Done: 11/30/24 20:49 Discharge Date/Time: 11/30/24 20:50
[2024-11-30 00:42] VITALS: BP 140/96; PULSE 135; RESP 20; TEMP 37.7; O2SAT 97; BMI 20.5
[2024-11-30] MEDS: traZODone HCL 50 MG TABLET PO ×3 (01:16→21:23)
[2024-11-30] MEDS: OLANZapine 10 MG TABLET 20 MG PO ×2 (01:16→21:23)
[2024-11-30 01:40] LABS: MANUAL DIFF FLAG NO
[2024-11-30 01:42] LABS: Basophils Absolute Auto 0.1 X10*3/uL (0.0-0.2); Basophils Percent Auto 0.7 % (0-2); Hematocrit 44.7 % (42.0-52.0); Hemoglobin 15.7 g/dl (14.0-18.0); Imm Gran Abs Auto 0.04 X10*3/uL (0.00-0.03); Imm Gran Pct Auto 0.4 % (0.0-0.4); Lymphocytes Absolute Auto 1.4 X10*3/uL (1.2-4.9); Lymphocytes Percent Auto 13.8 % (20-40); Mean Corpuscular HGB Conc 35.1 g/dl (31.0-36.0); Mean Corpuscular Hemoglobin 31.3 pg (27.0-33.0); Mean Platelet Volume 8.8 fL (9.4-12.4); Monocytes Absolute Auto 0.8 X10*3/uL (0.1-1.2); Neutrophils Absolute Auto 7.6 x10*3/uL (2.0-8.3); Neutrophils Percent Auto 77.1 % (45-73); Platelet Count 320 X10*3/uL (160-400); Red Blood Count 5.02 X10*6/uL (4.60-5.80); Red Cell Distribution Width 13.2 % (11.0-16.0); White Blood Count 9.9 X10*3/uL (4.8-10.8)
[2024-11-30 01:58] LABS: Anion Gap 21 (12-20); Blood Urea Nitrogen 8 mg/dL (9-16); Calcium 9.9 mg/dL (8.4-10.2); Carbon Dioxide 19 mmol/L (22-29); Chloride 104 mmol/L (96-108); Estimated Glomerular Filt Rate > 60; Ethanol < 10 mg/dL; Glucose Random 89 mg/dL (60-115); Potassium 3.4 mmol/L (3.3-5.1); Sodium 141 mmol/L (135-145)
[2024-11-30 02:15] LABS: Acetaminophen LAB < 3 mcg/mL (<30); Salicylate < 5.0 mg/dL (15-30)
[2024-11-30 02:22] LABS: Influenza A PCR NEGATIVE (Negative); Influenza B PCR NEGATIVE (Negative); Resp Syncy Virus RNA Qual PCR NEGATIVE (Negative); SARS COV2 PCR INHOUSE NEGATIVE (Negative)
[2024-11-30 03:24] LABS: Amphetamine Screen Urine Not Detected (Not Detect); Barbiturates, Urine Not Detected (Not Detect); Benzodiazepines Screen Urine Not Detected (Not Detect); Buprenorphine Scr Not Detected (Not Detect); Cannabinoid Screen Urine Not Detected (Not Detect); Cocaine Screen Urine Not Detected (Not Detect); Fentanyl, urine Not Detected (Not Detect); Methadone Screen, Urine Not Detected (Not Detect); Opiate Screen Urine Not Detected (Not Detect); Oxycodone Screen Urine Not Detected (Not Detect); Phencyclidine Screen Urine Not Detected (Not Detect)
--- NOTE | 2024-11-30 03:31 | PC.NURSE ---
pt very restless upon arrival to POD. pacing around unit, not talking to staff, doing push ups on the floor, pt was given medication per request. pt now resting comfortably, breathing even and unlabored. no apparent distress at this time
[2024-11-30 04:04] LABS: Appearance Urine Clear; Color Urine Yellow; Glucose Urine UA Negative (Negative); Leukocyte Esterase Urine Negative (Negative); Nitrite Urine Negative (Negative); PH 6.5 (5.0-9.0); Urine Blood Negative (Negative); Urine Ketones Negative (Negative); Urine Protein Negative (Neg-Trace)
[2024-11-30 04:18] LABS: Bacteria Urine None Seen (None Seen); Hyaline Casts Urine 0-2 /LPF (0-2); RBC Urine 0-2 /HPF (0-2); Squamous Epithelial Cell Urine 0-2 /HPF (0-2); WBC Urine 0-5 /HPF (0-5)
[2024-11-30 05:54] VITALS: RESP 18
--- NOTE | 2024-11-30 15:45 | MHC.CARE ---
Unable to wake patient at 1530 for evaluation. Staff reported he has been asleep all day and did not wake for lunch.
--- NOTE | 2024-11-30 16:55 | PC.NURSE ---
Patient is awake at this time. Charging cell phone at nurse's station. Pt aware that personal cell phones are not allowed in unit, but will charge the phone and place with the rest of his belongings once it's charged.
--- NOTE | 2024-11-30 17:12 | PC.NURSE ---
Jose (CARE team) speaking with patient at this time.
--- NOTE | 2024-11-30 19:24 | PHA.MEDREC ---
Addendum entered by Aditya Krishnamurthy RPh 11/30/24 21:39: MED REC REVIEWED BY [facility] Original Note: Pharmacy Consult ? Medication Reconciliation Pharmacy reviewed med rec done by nursing. Claims matches what was confirmed.
[2024-11-30 20:00] VITALS: BP 133/104; PULSE 100; RESP 16; TEMP 37.1; O2SAT 96
[2024-11-30 21:23] VITALS: BP 133/104
[2024-11-30] MEDS: hydrOXYzine HCL 25 MG TABLET PO (21:23)
[2024-11-30] MEDS: Prazosin HCL 1 MG CAPSULE PO (21:23)
[2024-11-30] MEDS: Nicotine Polacrilex 2 MG GUM 4 MG BUCCAL (21:24)
[2024-11-30 21:28] VITALS: BP 133/104; PULSE 100; RESP 16; TEMP 37.1; O2SAT 96; BMI 22.2
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
[2024-12-01 07:25] VITALS: BP 93/52; PULSE 89; RESP 14; TEMP 36.4; O2SAT 97
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
[2024-12-01] MEDS: Nicotine Polacrilex 2 MG GUM 4 MG BUCCAL ×2 (13:13→16:29)
[2024-12-01 20:00] VITALS: BP 133/85; PULSE 90; RESP 16; TEMP 36.4; O2SAT 98
[2024-12-01 21:05] VITALS: BP 133/85
[2024-12-01] MEDS: traZODone HCL 50 MG TABLET PO (21:05)
[2024-12-01] MEDS: Prazosin HCL 1 MG CAPSULE PO (21:05)
[2024-12-01] MEDS: OLANZapine 10 MG TABLET 20 MG PO (21:05)
[2024-12-02 08:00] VITALS: RESP 16
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
[2024-12-02 11:08] VITALS: BP 130/79; PULSE 78; RESP 18; TEMP 36.6; O2SAT 97
[2024-12-02] MEDS: Nicotine Polacrilex 2 MG GUM 4 MG BUCCAL ×2 (11:14→17:53)
[2024-12-02] MEDS: hydrOXYzine HCL 25 MG TABLET PO (17:53)
[2024-12-02 19:47] VITALS: BP 132/77; PULSE 96; TEMP 37.4; O2SAT 97
[2024-12-02 20:12] VITALS: BP 132/77
[2024-12-02] MEDS: Prazosin HCL 1 MG CAPSULE PO (20:12)
[2024-12-02] MEDS: traZODone HCL 50 MG TABLET PO ×2 (20:12→22:48)
[2024-12-02] MEDS: OLANZapine 10 MG TABLET 20 MG PO (20:13)
[2024-12-03] MEDS: hydrOXYzine HCL 25 MG TABLET PO (08:43)
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
== END 2024-12-03 11:04 | disposition home or self-care (01) | DRG 750 ==
LOC: HO.ED 19:24 → HO.PADLT16 19:57 → HO.PM5 12-01 11:52
PROVIDERS: Internal Medicine; Admitting Provider Psychiatry & Neurology Psychiatry; Emergency Provider Emergency Medicine; PCP Internal Medicine; Visit Provider Psychiatry & Neurology Psychiatry
DX: F20.9 Schizophrenia, unspecified (principal); Z91.148 Patient's other noncompliance with medication regimen for other reason; F12.10 Cannabis abuse, uncomplicated; F43.10 Post-traumatic stress disorder, unspecified; Z20.822 Contact with and (suspected) exposure to COVID-19; Z87.891 Personal history of nicotine dependence; Z79.899 Other long term (current) drug therapy
CPT/HCPCS: 0241U; 71045; 80048; 80143; 80179; 80307; 81001; 85025; 93005; 99285; S9485

== ENCOUNTER → 2024-11-30 01:19 | Outpatient (BNV) | payer OTHER, SELFPAY | PROVIDERS: Emergency Provider Internal Medicine; PCP Internal Medicine; Visit Provider Radiology Diagnostic Radiology | DX: R05.9 Cough, unspecified (principal) | CPT/HCPCS: 71045 ==

== ENCOUNTER → 2024-11-30 18:56 | Outpatient (BNV) | payer OTHER, SELFPAY | PROVIDERS: Admitting Provider Psychiatry & Neurology Psychiatry; Emergency Provider Emergency Medicine; PCP Internal Medicine; Visit Provider Internal Medicine | DX: R00.0 Tachycardia, unspecified (principal) | CPT/HCPCS: 93010 ==

== ENCOUNTER → 2024-11-30 19:43 | Outpatient (BNV) | payer OTHER, SELFPAY | PROVIDERS: Admitting Provider Psychiatry & Neurology Psychiatry; Emergency Provider Emergency Medicine; PCP Internal Medicine; Visit Provider Nurse Practitioner Psychiatric/Mental Health | DX: F20.9 Schizophrenia, unspecified (principal); F43.11 Post-traumatic stress disorder, acute | CPT/HCPCS: 90792; 99232; 99239 ==

== ENCOUNTER 2024-12-17 00:08 | Emergency (ER) | payer OTHER, SELFPAY ==
[2024-12-17 00:23] VITALS: BP 144/93; PULSE 108; PULSE 90; RESP 16; TEMP 36.8; O2SAT 100; O2SAT 97; BMI 24.7
--- OUTSIDE RECORDS SUMMARY | 2024-12-17 00:30 | XMS_ITS | Encounter Summary ---
Author Organization [facility] Address [address] [place] [address] Phone Care Team Providers Care Cheese Blender Name Role Phone Crow Gamez MD Primary Care Provider [phone] Encounter Details Date Type Department Care Team (Late st Contact Info) Description 01/24/2017 Conversion Encounter [facility] [place] [address] [place] [address] Social History Tobacco Use Types Packs/Day Years Used Date Smoking Tobacco: Never Assessed Sex and Gender Information Value Date Recorded Sex Assigned at Not on file Legal Sex Male 4:19 PM EDT Gender Identity Not on file Sexual Orientation Not on file documented as of this encounter Plan of Treatment Not on file documented as of this encounter Visit Diagnoses Not on filedocumented in this encounter Care Teams Cheese Blender Relationship Specialty Start Date End Date Crow Gamez MD [address] [facility] [place] [id number] PCP - General 01/18/17 08/22/22 documented as of this encounter
--- OUTSIDE RECORDS SUMMARY | 2024-12-17 00:30 | XMS_ITS ---
Author Organization [facility] Address [address] [place] [address] Care Team Providers Care Store Detective Name Role Phone Obi Boogie MD Primary Care Provider Transitional Care Management Status:Ongoing (Active) Start date:11/20/2024 Enrollment date:11/23/2024 Enrollment reason:Identified using claims or encounter data Overview Admission [facility] - PTSD, Schizophrenia Case Team Name Relationship Phone Valerie DOMINGUEZ Collar Shaper Operator(Responsible St aff) [phone] Continued Care and Services Coordination
--- NOTE | 2024-12-17 00:32 | ED_ITS ---
HPI - Psych General Chief Complaint: Psychiatric Symptoms Stated Complaint: schizophrenia appt tomorrow can't wait, stable Time Seen by Provider: 12/17/24 00:27 Source: patient and EMS Mode of arrival: EMS Limitations: no limitations History of Present Illness ED Provider: Dr. Sada Olivera HPI Narrative: patient comes to the emergency room via ambulance from home. Patient states that he has history of schizophrenia, PTSD. According to EMS, the family reported that tomorrow patient has an appointment at [facility] to discuss this medications, possible admission. However, patient is very paranoid, the family does not believe that the patient is safe at home or that his medications are helping. 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 Patient states that he is convinced that they are needles inside of his chest. Requesting x- rays. Patient denies swallowing foreign bodies. Related Data Previous Rx's ?Medication ?Instructions ?Recorded olanzapine 10 mg tablet 20 mg (2 x 10 mg) PO BEDTIME #30 11/19/24 tabs prazosin 1 mg capsule 1 mg PO BEDTIME 30 days #30 caps 11/19/24 trazodone 50 mg tablet 50 mg PO BEDTIME #30 tabs hydroxyzine HCl 25 mg tablet 25 mg PO Q6H PRN Anxiety 30 days 12/03/24 #90 tabs Allergies Allergy/AdvReac Type Severity Reaction Status Date / Time lactase (From Dairy Aid) AdvReac Rash Verified 12/17/24 00:27 Pork/Porcine Containing AdvReac Nausea Verified 12/17/24 00:27 Products Review of Systems Review of Systems: Constitutional : No Weight loss, No Fever, No Chills, No Night Sweats, No Fatigue, No Malaise ENT/Mouth : No Hearing loss, No Ear Pain, No Nasal Congestion, No Sinus Pain, No Hoarseness, No sore throat, No Rhinorrhea, No Swallowing Difficulty Eyes: No Eye Pain, No Swelling, No Redness, No Foreign Body, No Discharge, No Vision Changes Cardiovascular : No Chest Pain, No SOB, No Dyspnea on Exertion, No Orthopnea, No Edema, No Palpitations Respiratory : No Cough, No Sputum, No Wheezing, No Smoke Exposure, No Dyspnea Gastrointestinal : No Nausea, No Vomiting, No Diarrhea, No Constipation, No abdominal Pain, No Hematochezia, No Melena Genitourinary : no irregular bleeding, No Dysuria, No Urinary Frequency, No Hematuria, No Urinary Incontinence, No Urgency, No Flank Pain, No Urinary Flow Changes, No Hesitancy Musculoskeletal : No joint pain, No Myalgias, No Joint Swelling Skin : No Skin Lesions, No rash Neuro : No Weakness, No Numbness, No Paresthesias, No Loss of Consciousness, No Dizziness, No Headache Psych : Denies SI or HI, patient states that he believes his chest is full of needles Heme/Lymph: No Bruising, No Bleeding,No Lymphadenopathy Endocrine : No Polyuria, No Polydipsia, No Temperature Intolerance [facility] Past Medical History Medical History MDD (major depressive disorder) Schizophrenia Dextromethorphan use disorder, moderate PTSD (post-traumatic stress disorder) No known health problems Social History Social History Household Members: Family Household Members Other:: mom and aunt Housing: Apartment Do you presently have visiting nurse or other home services: No Unable to assess alcohol history related to: Refusing to respond Alcohol intake: current Alcohol intake frequency: does not drink Patient Tobacco Use Status: Former Tobacco user Tobacco use type: Cigar e-Cigarette/Vaping Use: Never Used Second Hand Smoke Exposure: No Substance Use Type: Marijuana Advance Directives: Yes Advance Directives on File: Yes Advance Directives Date on File: 06/11/24 Do you have a plan to hurt others: No Plan service: No Sexual orientation: Straight/Heterosexual Physical Exam Vital Signs: Vital Signs: Last Vital Signs Temp 98.2 F 12/17/24 00:23 Pulse 108 H 12/17/24 00:23 Resp 16 12/17/24 00:23 BP 144/93 H 12/17/24 00:23 Pulse Ox 97 12/17/24 00:23 O2 Del Method Room Air 12/17/24 00:23 BMI result Body Mass Index 24.7 Const: Other: Appearance: Alert. oriented x3, no acute distress Eyes: Pupils equal, round and reactive to light. ENT: Pharynx normal. Neck: Normal inspection. Neck supple. No lymph nodes noted. No crepitus CVS: Normal heart rate and rhythm. Pulses normal. Normal S1 and S2 Respiratory: No respiratory distress. Breath sounds normal. No Wheezing. No rales Abdomen: Soft and nontender. No rigidity. No distention. Skin: Skin warm and dry. Normal skin color. Normal skin turgor. Extremities: No lower extremity edema. No Lacerations. No Rash Neuro: Oriented X 3. No motor deficit. No sensory deficit. Moving all extremities. No slurred speech. CN 2 through 12 grossly intact Psych: calm, cooperative, flat affect, concerned that he is needles inside of his chest. Course Course Course Narrative: All of patient's labs pending. Patient is on a Section 12. Patient's seems significantly decompensated physician observation started at 00:33 Reevaluation(s) Reevaluation #1: 12/17/2024; DR. Sotelo's progress note. VSS, care team input is appreciated patient is section 12 now, bed search is u nderway, no events reported by nursing overnight, will continue monitoring. Time: 10:00 Reevaluation #2: 12/17/2024; DR. Sotelo's progress note. Patient was reassessed by care team, no SI, no HI, patient feels safe to be discharged home, will discontinue physician observation and discharge. Time: 10:53 Medications Administered Discontinued Medications Generic Name Dose Route Start Last Admin Trade Name Brandynq PRN Reason Stop Dose Admin Lorazepam 2 mg 12/17/24 00:53 12/17/24 05:29 Lorazepam 1 Mg Tablet PO 12/17/24 00:54 Not Given ONCE ONE Olanzapine 5 mg 12/17/24 00:53 12/17/24 05:29 Olanzapine 5 Mg Tablet PO 12/17/24 00:54 Not Given ONCE ONE Medical Decision Making Differential Diagnosis Differential Diagnoses: The differential diagnosis associated with the presentation includes ( schizophrenia, delusional, anxiety, depression, polysubstance abuse) Admission/Observation Consideration of admission/observation: Escalation of care including admission/observation considered (pt is on a section 12) Critical Care Time Critical Care Time Critical Care Time: Yes Total Critical Care Time: 35 Attestation: I have personally provided critical care time. Time includes review of lab data, radiology results, discussion with consultants, and monitoring for potential decompensation. Intervention performed as documented. Discharge Plan Discharge Clinical Impression: Chronic schizophrenia, Paranoid Patient Disposition: Home, Self-Care Instructions: Schizophrenia (ED) Prescriptions: No Action hydroxyzine HCl 25 mg Tablet 25 mg PO Q6H PRN (Reason: Anxiety) 30 Days Qty: 90 0RF trazodone 50 mg Tablet 50 mg PO BEDTIME Qty: 30 0RF olanzapine 10 mg Tablet 20 mg PO BEDTIME Qty: 30 0RF prazosin 1 mg Capsule 1 mg PO BEDTIME 30 Days Qty: 30 0RF Protocol: Hold for SBP< HOLD for SBP < : 90 Interventions: [place]-Suicide Risk Severity Scale Last Done: 12/17/24 05:07 Print Language: Angolan
--- NOTE | 2024-12-17 00:34 | MHC.EDTECH ---
Pt refused blood draw, RN and Provider aware.
--- NOTE | 2024-12-17 01:00 | PC.NURSE ---
client declined meds and declined wanting to talk to t/w
--- NOTE | 2024-12-17 05:09 | PC.NURSE ---
patient soon after arrival was guarded and noncompliant seemed fearful regarding labs, samples, would not comply. was redirected back to his room area and began wandering on unit nearly into peers rooms trying to antagonize staff eg: asking how much money we made seemingly to attempt to insult us, calling us names, etc. some misogynistic themes. (this was 0130 am- late entry d/t downtime. meds were ordered and provider and charge informed regarding possibility of im for client. security was called and encouraged client to remain in hs intended area, after about 30 minutes w no medication client laid down and slept. he had claimed he had not slept for days, did not attest to drug or etoh use, did not answer many questions seemed int preoccupied. periodically talking to air and staring at cameras in his living area.
[2024-12-17 12:07] VITALS: BP 144/93; PULSE 108; RESP 16; TEMP 36.8; O2SAT 97
--- NOTE | 2024-12-17 12:49 | MHC.CARE ---
Pt has been referred to [facility] for a 3 day follow up and a 7 day alert has been requested.
== END 2024-12-17 12:08 | disposition home or self-care (01) ==
PROVIDERS: Emergency Provider Emergency Medicine
DX: F20.0 Paranoid schizophrenia (principal); F43.10 Post-traumatic stress disorder, unspecified; F19.20 Other psychoactive substance dependence, uncomplicated; Z79.899 Other long term (current) drug therapy
CPT/HCPCS: 99284; 99285; S9485

== ENCOUNTER 2024-12-20 11:38 | Inpatient (IN) | payer OTHER, SELFPAY ==
--- NOTE | ~2024-12-20 | XR_ITS ---
CLINICAL HISTORY: cough 2 view chest x-ray Comparison: None provided Findings: No consolidation or effusion. Normal size heart. No acute fracture. IMPRESSION: 1. No acute findings. This document has been electronically signed by: Donavon Cavanaugh MD on 12/20/2024 22:57:11
[2024-12-20 11:41] VITALS: PULSE 120; O2SAT 98
[2024-12-20 11:48] VITALS: BP 147/105; PULSE 122; RESP 18; TEMP 36.6; O2SAT 97; BMI 24.4
--- NOTE | 2024-12-20 11:55 | PC.NURSE ---
patient awake/alert- selectively speaking- after triage was complete this nurse heard the patient stated Victor Hugo, aaronlili, is somebody going to come help me when this nurse stated he is waiting for a provider to see him. Upon stating this pt stated ok . pt rr equal/non labored, pt awaiting evaluation, plan of care ongoing.
--- NOTE | 2024-12-20 12:12 | ED.GENADULT ---
HPI - General Adult General Chief complaint: General Medical Stated complaint: MOM STS PT WANTS TO COME,HX SCHIZOPHRENIA,NON VERB Time Seen by Provider: 12/20/24 12:04 Source: patient and RN notes reviewed Mode of arrival: ambulatory Limitations: no limitations History of Present Illness ED Provider: Jewels Lazar PA-C HPI narrative: This is a 24-year-old male, with a past medical history of PTSD, and schizophrenia, who presents emergency department via EMS after mom called stating that patient has medications are no longer working. Patient was not verbal with EMS in route. Upon arrival, patient reporting ?help me , I asked what exactly he needs help with, and he states that internally he needs help. He reports that he is not in any pain. Patient denies any smoking history. Denies any drug use. No thoughts of harming himself or others. Patient reporting that I am from the [employer], and he needs to watch me kit him a glass of water as he does not trust the water that was provided to him here in the emergency department. No other complaints or concerns at this time. MD complaint: ? Psychosis Associated symptoms: denies other symptoms Treatments prior to arrival: none Related Data Previous Rx's ?Medication ?Instructions ?Recorded olanzapine 10 mg tablet 20 mg (2 x 10 mg) PO BEDTIME #30 11/19/24 tabs prazosin 1 mg capsule 1 mg PO BEDTIME 30 days #30 caps 11/19/24 trazodone 50 mg tablet 50 mg PO BEDTIME #30 tabs 11/19/24 hydroxyzine HCl 25 mg tablet 25 mg PO Q6H PRN Anxiety 30 days 12/03/24 #90 tabs Allergies Allergy/AdvReac Type Severity Reaction Status Date / Time lactase (From Dairy Aid) AdvReac Rash Verified 12/20/24 11:54 Pork/Porcine Containing AdvReac Nausea Verified 12/20/24 11:54 Products Review of Systems Review of Systems: Yes all other systems are reviewed and are negative Constitutional: Constitutional: Reports as per HPI [facility] Past Medical History Medical History MDD (major depressive disorder) Schizophrenia Dextromethorphan use disorder, moderate PTSD (post-traumatic stress disorder) No known health problems Social History Social History Household Members: Family Household Members Other:: mom and aunt Housing: House Do you presently have visiting nurse or other home services: No Unable to assess alcohol history related to: Refusing to respond Alcohol intake: current Alcohol intake frequency: does not drink Patient Tobacco Use Status: Former Tobacco user Tobacco use type: Cigar e-Cigarette/Vaping Use: Never Used Second Hand Smoke Exposure: No Substance Use Type: Marijuana Currently Displaying Signs/Symptoms of Drug Intoxication Withdrawal: No Advance Directives: No Advance Directives Information Provided: No Advance Directives Date on File: 06/11/24 Do you have thoughts of harming others: None Do you have a plan to hurt others: No Plan Recently lost weight without trying: Unsure Nutrition Risks: No Nutritional Risk Poor oral hygiene: No service: No Sexual orientation: Straight/Heterosexual Physical Exam ED Vital Signs: Vital Signs - 24 hr 12/21/24 19:34 12/21/24 21:14 12/22/24 06:01 Temperature Pulse Rate Respiratory Rate 16 16 Blood Pressure 136/87 Pulse Oximetry Oxygen Delivery Method 12/22/24 11:01 Temperature 96.8 F Pulse Rate 88 Respiratory Rate 16 Blood Pressure 115/59 L Pulse Oximetry 99 Oxygen Delivery Method Room Air BMI result Body Mass Index 24.4 Const General: cooperative, comfortable and no acute distress Orientation/consciousness: patient oriented x3 Limitations: no limitations HENMT Other: Patient with tenderness palpation along the left lower dentition, no obvious gum fluctuance or induration, teeth are in good repair. Head: Yes normal to inspection, Yes normocephalic and Yes atraumatic Ears: hearing grossly normal bilaterally General nose exam: Normal external nose present Face and sinus: Yes normal facial exam Mouth: Normal oral and palatal mucosa present, oropharynx normal and moist mucous membranes Throat: Yes posterior oropharynx normal Eyes General: appearance normal, both eyes and all related structures Eyelids: Yes eyelids normal Conjunctivae: conjunctivae normal Sclerae: sclerae normal Pupils: Equal, round and reactive pupils present EOM: EOMs intact bilaterally Neck Neck: Yes normal visual inspection, Yes full ROM and Yes no lymphadenopathy Lymphatic: no lymphadenopathy noted Chest Chest palpation & inspection: normal inspection of the chest Resp Effort & Inspection: normal respiratory effort and able to speak in complete sentences Auscultation: clear to auscultation bilaterally, no crackles, no rales, no rhonchi and no wheezes Cardio Rate: regular rate Rhythm: regular rhythm Heart sounds: S1 normal heart sound present and S2 normal heart sound present GI Inspection: Yes normal to inspection Skin General skin exam: no rashes or lesions noted Trauma: no lacerations or abrasions Wounds: no wounds Neuro General: patient oriented x3 and moves all extremities Cranial nerves: Yes Equal, round and reactive pupils present Extrem General: Yes normal to inspection Right upper extremity: normal to inspection Left upper extremity: normal to inspection Right lower extremity: normal to inspection Left lower extremity: normal to inspection Psych Appearance: well kempt Speech and movement: Slowed speech present (Psych) and Slowed movement present (Neuro) Affect: Blunted affect present Attitude: Guarded attititude/behavior present Thought process: Flight of ideas present Thought content: delusions Course Course Course Narrative: Time: 11:10 Date: 12/21/24 Provider: Krystal Rios, DO Patient in physician observation for psychiatric evaluation.? No acute events reported overnight. No current complaints. VS stable.? Patient is in bed search status. Will continue to monitor. Reevaluation(s) Reevaluation #1: Time: 08:00 Date: 12/22/24 Provider: Grant Bliss MD Patient in physician observation for psychiatric evaluation.? No acute events reported overnight. ? Patient is in bed search status. Reevaluation #2: Time: 13:49 Date: 12/22/24 Provider: Grant Bliss MD Physician observation ended at 10:00 AM. Patient to be admitted as inpatient to psychiatry. Medications Administered Generic Name Dose Route Start Last Admin Trade Name Freq PRN Reason Stop Dose Admin Acetaminophen 650 mg 12/22/24 12:18 12/22/24 14:34 Acetaminophen 325 Mg Tablet PO 650 mg Q6H PRN Administration Headache/Pain, Scale 1-10 Amoxicillin/Clavulanate Potassium 875 mg 12/20/24 21:00 12/23/24 09:22 Amoxicillin/Potassium Clav 875 Mg Tablet PO 12/26/24 23:59 Not Given BID MARINA Guaifenesin/Dextromethorphan 1 tab 12/22/24 14:03 12/22/24 14:34 Guaifenesin Dm 600/30 1 Tab Tab.Er.12h PO 1 tab BID PRN Administration Cough Haloperidol 5 mg 12/22/24 21:00 12/23/24 09:22 Haloperidol 5 Mg Tablet PO Not Given BID MARINA Olanzapine 20 mg 12/21/24 21:00 12/22/24 21:22 Olanzapine 10 Mg Tablet PO Not Given BEDTIME MARINA Prazosin HCl 1 mg 12/21/24 21:00 12/22/24 21:22 Prazosin Hcl 1 Mg Capsule PO Not Given BEDTIME MARINA Protocol Trazodone HCl 50 mg 12/21/24 21:00 12/22/24 21:22 Trazodone Hcl 50 Mg Tablet PO Not Given BEDTIME MARINA Discontinued Medications Generic Name Dose Route Start Last Admin Trade Name [place] PRN Reason Stop Dose Admin Acetaminophen 650 mg 12/20/24 17:05 12/20/24 17:18 Acetaminophen 325 Mg Tablet PO 12/20/24 17:06 650 mg ONCE ONE Administration Amoxicillin/Clavulanate Potassium 875 mg 12/20/24 17:17 12/20/24 17:20 Amoxicillin/Potassium Clav 875 Mg Tablet PO 12/20/24 17:18 875 mg ONCE ONE Administration Guaifenesin 10 ml 12/22/24 11:27 12/22/24 11:37 Guaifenesin 200 Mg/10 Ml 10 Ml Liquid PO 12/22/24 11:28 10 ml ONCE ONE Administration Lorazepam 2 mg 12/20/24 13:17 12/20/24 13:23 Lorazepam 1 Mg Tablet PO 12/20/24 13:18 2 mg ONCE ONE Administration Ondansetron HCl 4 mg 12/20/24 16:59 12/20/24 17:18 Ondansetron Odt 4 Mg Tab.Rapdis TRANSLINGU 12/20/24 17:00 4 mg ONCE ONE Administration Medical Decision Making Medical Decision Making [facility] Narrative: This is a 24-year-old male, with a past medical history of schizophrenia with multiple inpatient psychiatric admissions, PTSD, who presents emergency department via EMS as mother called 911 stating that his medications were no longer working. On arrival, patient is guarded, does not answer all questions, and has delayed speech. He is alert and oriented to self, place, and time. On arrival, he is tachycardic at 122, slightly hypertensive at 147/105, all other vital signs within normal limits. Patient paranoid, has repeated multiple times that I am in the [employer]. Speaking with blunted affect, with flight of ideas. Will obtain basic labs, EKG secondary to tachycardia, and patient will be seen by the care team. Course 1439 labs returned, he has no leukocytosis, stable H&H, chemistry with no significant electrolyte derangement, toxicology negative. Negative COVID. Awaiting U tox. Also awaiting care team evaluation. Patient found to be wandering around the room, stating that he wants to ?be put to sleep?. Patient very anxious appearing, will medicate with oral dose of Ativan. We will continue to monitor 1733 - patient coughing excessively into a bag. I reassess patient, he does report he is slightly nauseous. Will treat with Zofran. He also has dental pain, will start on Augmentin. There is no obvious dental caries or dental abscess. Differential Diagnosis Differential Diagnoses: The differential diagnosis associated with the presentation includes Anxiety, depression, psychosis, schizophrenia Admission/Observation Consideration of admission/observation: Escalation of care including admission/observation considered Lab Data [facility] Lab Attestation statement: I reviewed the patient's lab results. See MDM and course 12/20/24 13:39 12/20/24 13:39 Labs: Lab Results 12/20/24 12/20/24 12/20/24 Range/Units 13:39 16:58 16:59 WBC 6.9 (4.8-10.8) X10*3/uL RBC 4.89 (4.60-5.80) X10*6/uL Hgb 15.4 (14.0-18.0) g/dl Hct 43.6 (42.0-52.0) % MCV 89.2 (80.0-98.0) fL MCH 31.5 (27.0-33.0) pg MCHC 35.3 (31.0-36.0) g/dl RDW 13.1 (11.0-16.0) % Plt Count 275 (160-400) X10*3/uL MPV 8.8 L (9.4-12.4) fL Immature Gran % (Auto) 0.4 (0.0-0.4) % Neut % (Auto) 86.9 H (45-73) % Lymph % (Auto) 7.8 L (20-40) % [place] % (Auto) 4.2 (2-11) % Eos % (Auto) 0.0 (0-4) % Baso % (Auto) 0.7 (0-2) % Lymph # (Auto) 0.5 L (1.2-4.9) X10*3/uL [place] # (Auto) 0.3 (0.1-1.2) X10*3/uL Eos # (Auto) 0.0 (0.0-0.4) X10*3/uL Baso # (Auto) 0.1 (0.0-0.2) X10*3/uL Abs Immat Gran (auto) 0.03 (0.00-0.03) X10*3/uL Absolute Neuts (auto) 6.0 (2.0-8.3) x10*3/uL Absolute Nucleated RBC 0.000 (0.0-0.012) X10*3/uL Nucleated RBC % (auto) 0.0 (0.0-0.2) /100WBC Sodium 142 (135-145) mmol/L Potassium 4.2 D (3.3-5.1) mmol/L Chloride 105 (96-108) mmol/L Carbon Dioxide 26 (22-29) mmol/L Anion Gap 15 (12-20) BUN 10 (9-16) mg/dL Creatinine 0.73 (0.5-1.4) mg/dL Estim Creat Clear Calc 152.2 Estimated GFR > 60 Random Glucose 119 H (60-115) mg/dL Calcium 9.3 D (8.4-10.2) mg/dL Total Bilirubin 0.2 (0.0-1.0) mg/dL AST 27 (5-37) U/L ALT 28 (0-40) U/L Alkaline Phosphatase 95 (39-117) U/L Total Protein 7.9 (6.5-8.0) g/dL Albumin 5.0 (3.5-5.0) g/dL Urine Color Yellow Urine Appearance Clear Urine pH 6.5 (5.0-9.0) Ur Specific [place] 1.010 (1.005-1.025) Urine Protein Negative (Neg-Trace) mg/dL Urine Glucose (UA) Negative (Negative) mg/dL Urine Ketones Negative (Negative) mg/dL Urine Blood Negative (Negative) Urine Nitrite Negative (Negative) Ur Leukocyte Esterase Negative (Negative) Salicylates < 5.0 L (15-30) mg/dL Urine Opiates Screen Not Detected (Not Detect) Ur Buprenorphine Scrn Not Detected (Not Detect) ng/mL Ur Oxycodone Screen Not Detected (Not Detect) ng/mL Urine Methadone Screen Not Detected (Not Detect) ng/mL Urine Fentanyl Screen Not Detected (Not Detect) Acetaminophen < 3 (<30) mcg/mL Ur Barbiturates Screen Not Detected (Not Detect) Ur Phencyclidine Scrn Not Detected (Not Detect) Ur Amphetamines Screen Not Detected (Not Detect) U Benzodiazepines Scrn Not Detected (Not Detect) Urine Cocaine Screen Not Detected (Not Detect) U Marijuana (THC) Screen Not Detected (Not Detect) Ethyl Alcohol < 10 mg/dL COVID-19 ([facility]) Negative (Negative) COVID-19 Clin Com See Note Discharge Plan Discharge Clinical Impression: Pain, dental, Schizo-affective psychosis Patient Disposition: Admitted As Inpatient Interventions: Admission Worksheet (ED) Last Done: 12/22/24 13:18 Discharge Date/Time: 12/22/24 13:19
--- NOTE | 2024-12-20 12:33 | ECG_ITS ---
Test Reason : PROLONGED Q WAVES Blood Pressure : */* mmHG Vent. Rate : 120 BPM Atrial Rate : 120 BPM P-R Int : 132 ms QRS Dur : 90 ms QT Int : 344 ms P-R-T Axes : 55 28 30 degrees QTcB Int : 486 ms Sinus tachycardia Otherwise normal ECG When compared with ECG of 30-Nov-2024 18:56, No significant change was found Referred By: Jewels Lazar Electronically Signed By: FITO BRITT
--- NOTE | 2024-12-20 13:26 | PC.NURSE ---
pt very distrusting and paranoid. did not want to drink water that was given to him. he asked this RN to put me to sleep . Jewels CORREIA notified of pt presentation;. PA offered medication to help remain calm. pt took medicatious willingly.
--- NOTE | 2024-12-20 13:31 | PC.NURSE ---
pt very distrusting and paranoid. did not want to drink water that was given to him. he asked this RN to put me to sleep . Jewels CORREIA notified of pt presentation;. PA offered medication to help remain calm. pt took medications willingly.
[2024-12-20 13:47] LABS: Hematocrit 43.6 % (42.0-52.0); Hemoglobin 15.4 g/dl (14.0-18.0); Imm Gran Abs Auto 0.03 X10*3/uL (0.00-0.03); Imm Gran Pct Auto 0.4 % (0.0-0.4); Lymphocytes Absolute Auto 0.5 X10*3/uL (1.2-4.9); MANUAL DIFF FLAG NO; Mean Corpuscular HGB Conc 35.3 g/dl (31.0-36.0); Mean Corpuscular Hemoglobin 31.5 pg (27.0-33.0); Mean Corpuscular Volume 89.2 fL (80.0-98.0); NRBC Abs Auto 0.000 X10*3/uL (0.0-0.012); NRBC Pct Auto 0.0 /100WBC (0.0-0.2); Platelet Count 275 X10*3/uL (160-400); Red Blood Count 4.89 X10*6/uL (4.60-5.80); White Blood Count 6.9 X10*3/uL (4.8-10.8)
[2024-12-20 14:01] LABS: COVID-19 Test Negative (Negative); IDNOW Serial# 6674DD1D
[2024-12-20 14:03] LABS: Acetaminophen LAB < 3 mcg/mL (<30); Salicylate < 5.0 mg/dL (15-30)
[2024-12-20 14:04] LABS: Alanine Aminotransferase 28 U/L (0-40); Albumin Level 5.0 g/dL (3.5-5.0); Alkaline Phosphatase 95 U/L (39-117); Anion Gap 15 (12-20); Aspartate Amino Transferase 27 U/L (5-37); Blood Urea Nitrogen 10 mg/dL (9-16); Calcium 9.3 mg/dL (8.4-10.2); Carbon Dioxide 26 mmol/L (22-29); Chloride 105 mmol/L (96-108); Creatinine Clr Calc Pharmacy 152.2; Estimated Glomerular Filt Rate > 60; Potassium 4.2 mmol/L (3.3-5.1); Sodium 142 mmol/L (135-145); Total Protein 7.9 g/dL (6.5-8.0)
--- NOTE | 2024-12-20 15:14 | MHC.EDTECH ---
gave pt a peanut butter and jelly sandwhich. Ok per MASOOD.
--- NOTE | 2024-12-20 16:03 | PC.NURSE ---
pt reporting tooth pain. he also has been spitting up saliva with red tinge. MASOOD coley notified. care team with pt now
[2024-12-20 17:02] VITALS: BP 143/93; PULSE 96; RESP 16; TEMP 36.9; O2SAT 97
[2024-12-20 17:05] LABS: Appearance Urine Clear; Glucose Urine UA Negative (Negative); PH 6.5 (5.0-9.0); Specific Gravity - Urine 1.010 (1.005-1.025)
[2024-12-20 17:17] LABS: Cannabinoid Screen Urine Not Detected (Not Detect)
--- NOTE | 2024-12-20 17:41 | PC.NURSE ---
med rec: spoke to pt's mother on the phone (primary contact). she states she gives him his medications every evening at about 2100. She states he has been taking them and last took them yesterday. HE has also been taking his atarax prn q6h. these were confirmed with pharmacy claims.
--- NOTE | 2024-12-20 19:13 | PC.NURSE ---
Addendum entered by Brittaney Jones RN 12/20/24 21:46: pt noted to be forcefully coughing, very light streaks of blood in spit after coughing. Pt expressed concerned for blood, examined pts mouth and back of throat pt noted to have cuts on his tongue. Asked pt if he bit his tongue and he stated no. Educated pt to be cautious on biting his tongue which could be contributing to the blood he thinks he's spitting up from coughing. Md aware, chest xray ordered. Addendum entered by Brittaney Jones RN 12/20/24 19:28: updated pts VS pt remained call and cooperative, pt stating he wants help with his schizophrenia and medications and wants to make sure his mother is ok. pt denies any auditory or visual hallucinations at this time. pt updated on plan of care. Original Note: assumed care for pt at this time, pt awake and alert in stretcher calm and cooperative. pt in no notable distress at this time. sitter in place, call head within reach, plan of care ongoing.
[2024-12-20 19:27] VITALS: BP 155/92; PULSE 94; RESP 16; TEMP 36.8; O2SAT 97
[2024-12-21 04:00] VITALS: BP 111/77; PULSE 65; RESP 14; TEMP 36.7; O2SAT 95
[2024-12-21 08:35] VITALS: BP 121/78; PULSE 93; RESP 19; TEMP 36.2; O2SAT 95
--- NOTE | 2024-12-21 12:21 | PHA.MEDREC ---
Addendum entered by Aditya Krishnamurthy RPh 12/21/24 13:47: MED REC REVIEWED BY [facility] Original Note: Pharmacy Consult ? Medication Reconciliation Pharmacy reviewed med rec done by nursing. Spoke with pt and he was a poor historian with his meds and just agreeing with everything I was asking him. Spoke with pt mother over the phone and she confirmed with Rx bottles (from [facility], [facility] [address]) the medications confirmed by nursing matches.
[2024-12-21 13:12] VITALS: BP 136/87; PULSE 97; RESP 18; TEMP 36.4; O2SAT 96
--- NOTE | 2024-12-21 13:41 | PC.NURSE ---
Pt remains sleeping but arousable to voice- A&O X4 does not want PO bkfst or lunch. Pt VSS NAD No complaints- cont. obs maintained for safety
--- NOTE | 2024-12-21 14:24 | PC.NURSE ---
Report called to Simin in [facility] pod.
[2024-12-21 19:34] VITALS: RESP 16
[2024-12-21 21:14] VITALS: BP 136/87
--- NOTE | 2024-12-22 03:34 | PC.NURSE ---
patient came to desk to request drink and returnd to room
[2024-12-22 06:01] VITALS: RESP 16
--- NOTE | 2024-12-22 07:38 | PC.NURSE ---
Assumed care of patient at 0645, patient appears to be in no apparent distress at this time, appears to be sleeping, respirations even and unlabored. Continue plan of care for IPLOC
[2024-12-22 11:01] VITALS: BP 115/59; PULSE 88; RESP 16; TEMP 36; O2SAT 99
[2024-12-22] MEDS: guaiFENesin 200 MG/10 ML 10 ML LIQUID PO (11:37)
[2024-12-22 13:30] VITALS: BP 139/82; PULSE 103; RESP 19; TEMP 36.8; O2SAT 98; BMI 23.4
--- NOTE | 2024-12-22 14:21 | PC.ADMIT ---
Addendum entered by Geena Latham RN 12/22/24 15:06: Pt arrived from ED with no mann or wallet. Arti, POD RN did not provide any receipt of secured wallet or mann. See ED chart for pt belongings. Unit inventory of pt belongings completed upon M5 unit arrival. Arti, Pod RN made aware and will call back. Addendum entered by Geena Latham RN 12/22/24 14:40: Pt c/o sore throat and coughing. Given Robitussin in ED with no relief. Given Tylenol and mucinex upon unit arrival. Pt stated he has not slept for 3 days secondary to coughing. Original Note: Pt transferred from [facility] Pod via wheelchair. Pt arrived via ambulance to [facility] ED on 12/20/24 after his mom calling 911 for erratic behavior at home and possible non-compliance. Pt A&O x 3. Pt could not recall how he arrived in ED. Skin intact with no visible wound. VSS. Talking in full sentences. Difficult to understand at him. Pt requesting for 3-day notice upon unit arrival. Pt refused to answer most assessment questions. Pt denied substance and alcohol use. Pt stated, I don't wanna eat your hospital food. Pt refused status notifications to PCP or family members.
[2024-12-22] MEDS: guaiFENesin DM 600/30 1 TAB TAB.ER.12H PO (14:34)
[2024-12-22 20:00] VITALS: BP 116/55; PULSE 85; RESP 16; O2SAT 95
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
[2024-12-23 09:20] VITALS: BP 131/83; PULSE 83; RESP 16; TEMP 36.9; O2SAT 100
--- NOTE | 2024-12-23 16:05 | P.PNPSI_ITS ---
Subjective Subjective Date of Service: 12/23/24 Reason For Visit: Schizoaffective Disorder Subjective Notes: 3 Day Healthcare Proxy: No Guardianship: No Medical Problems Affecting Mental Status: No Interim History: Medical record and nursing notes reviewed; case discussed during rounds with team/nursing staff, and met with patient for supportive therapy/psychoeducation, as well as medication management. Per nursing, patient did not take medication last night, did not sleep last night. Met with patient in his room, he he sit up talking to this provider, reported that he did not take medication because of I was sleeping last night . Remind patient to consist with medication as he is on antibiotic. Remind him that the Haldol started, and he should take S scheduled plus the Zyprexa. At this current time, not a good time to start on ADHD stimulant as he has appear to be paranoid psychotic even though he is a denies other symptoms, denies safety concerns. Medication Compliance: No Side effects from medications: No Attending Groups: No Review of Systems Acute medical concerns: No Medical Review of Systems: unchanged Review of Systems Review of Systems Constitutional: Denies fatigue and Denies fever(s) Cardiovascular: Denies chest pain and Denies dyspnea Respiratory: Denies dyspnea. However, reports has been coughing for about a week. On antibiotic. Gastrointestinal: Denies abdominal pain Psychiatric: denies suicidal ideation Endocrine: Denies fatigue Mental Status Exam Mental Status Exam Narrative: Patient is alert and oriented; behavior is cooperative, mild to moderate anxiety and depression; patient is not in distress; dressed in hospital attire with adequate hygiene; mood is described as I am ok and affect incongruent; eye contact appropriate; Speech is normal rate, volume and prosody and not pressured; no psychomotor agitation/retardation present; thought process is disorganized and not goal directed; no treatment oriented. Thought content is WNL but focused on wanting to go home, pertinent to relevant topics and without any delusional content, paranoid ideation or grandiosity; denies any SI/SIB/HI. Denies AH and there is no evidence of perceptual disturbance. However he appeared to be paranoid. Patient's insight and judgment poor and impaired Diagnostics Vital Signs (24Hr): Vital Signs - 24 hr 12/22/24 20:00 12/23/24 09:20 Temperature 98.4 F Pulse Rate 85 83 Respiratory Rate 16 16 Blood Pressure 116/55 L 131/83 Pulse Oximetry 95 100 Oxygen Delivery Method Room Air Room Air BMI result Body Mass Index 23.4 Labs 12/20/24 13:39 12/20/24 13:39 Medications Medications Current Medications Acetaminophen (Acetaminophen 325 Mg Tablet) 650 mg PO Q6H PRN PRN Reason: Headache/Pain, Scale 1-10 Last Admin: 12/22/24 14:34 Dose: 650 mg Al Hydroxide/Mg Hydroxide (Magnesium Hydrox/Alum Hydrox 30 Ml Oral.Susp) 30 ml PO Q6H PRN PRN Reason: Heartburn/Nausea Amoxicillin/Clavulanate Potassium (Amoxicillin/Potassium Clav 875 Mg Tablet) 875 mg PO BID MARINA Stop: 12/26/24 23:59 Last Admin: 12/23/24 09:22 Dose: Not Given Benzocaine (Throat Lozenge, Medicated Lozenge) 1 lozenge MUCOUS MEM Q2H PRN PRN Reason: Sore Throat Guaifenesin/Dextromethorphan (Guaifenesin Dm 600/30 1 Tab Tab.Er.12h) 1 tab PO BID PRN PRN Reason: Cough Last Admin: 12/22/24 14:34 Dose: 1 tab Haloperidol (Haloperidol 5 Mg Tablet) 5 mg PO BID MARINA Last Admin: 12/23/24 09:22 Dose: Not Given Haloperidol (Haloperidol 5 Mg Tablet) 5 mg PO Q4H PRN PRN Reason: psychosis, agitation Hydroxyzine HCl (Hydroxyzine Hcl 25 Mg Tablet) 25 mg PO Q6H PRN PRN Reason: Anxiety Magnesium Hydroxide (Milk Of Magnesia 30 Ml Oral.Susp) 30 ml PO DAILY PRN PRN Reason: Constipation Nicotine Polacrilex (Nicotine Polacrilex 2 Mg Gum) 4 mg BUCCAL Q2H PRN PRN Reason: Nicotine Cravings Last Admin: 12/23/24 15:35 Dose: 4 mg Olanzapine (Olanzapine 10 Mg Tablet) 20 mg PO BEDTIME MARINA Last Admin: 12/22/24 21:22 Dose: Not Given Prazosin HCl (Prazosin Hcl 1 Mg Capsule) 1 mg PO BEDTIME MARINA; Protocol Last Admin: 12/22/24 21:22 Dose: Not Given Trazodone HCl (Trazodone Hcl 50 Mg Tablet) 50 mg PO BEDTIME MARINA Last Admin: 12/22/24 21:22 Dose: Not Given Allergies Allergies Allergy/AdvReac Type Severity Reaction Status Date / Time lactase (From Dairy Aid) AdvReac Rash Verified 12/20/24 11:54 Pork/Porcine Containing AdvReac Nausea Verified 12/20/24 11:54 Products Assessment & Plan Assessment & Plan (1) PTSD (post-traumatic stress disorder): Status: Acute Code(s): F43.10 - Post-traumatic stress disorder, unspecified (2) Schizophrenia in partial remission with history of multiple episodes: Status: Acute Code(s): F20.9 - Schizophrenia, unspecified Plan HPI: Pt was BIBA due to concerns of paranoia and psychosis. Patient's mother called 911 due to concerns of medications not working. Mom called 911 after she found pt outside screaming... he thought I was . . Pt was nonverbal despite technical publications writer attempts to engage him. He appeared to be nervous and paranoid, looking around the room and tensing up his body urine care team assessment. History of PTSD, schizophrenic, paranoid. Met with patient at 1915 in OT room. C/C I do not know why I am here . Reports that he has been taking medications. But I been cough for about a week, and I was for like 3 days before coming in here . Patient denies paranoid thoughts at the beginning, but admit that he feels paranoid, but not able to disclose for more details. He denies suicidal thoughts, denies SIB/HI/AVH. Sleep is I have not slept for 3 days , been eating. However he does not like hospital food, and usually he refused he and meals offered. Mood is a Wanna go home . Denies legal status. Denies substance use. Formulation/clinical reasoning: This is his 5th admission to psych hospital, immediately signed a 3 days every time when he admitted, not agree with medication change, not treatment oriented, relapsed mentally after discharge. He also signed a 3 day notice. Wanted to be on Adderall for ADHD. Question if compliant with medication after discharge. Question if medication currently is working. He appeared to be paranoid, pre internal occupied. Given information, patient should be benefit from restrictive environment for medication change and adjustment, and refer to outpatient services. Hospital course: 12/22/24: Continue with antibiotic twice a day for infection/coughing Start Haldol 5 mg twice a day for psychosis. This is his 2nd at on antipsychotic medication as Zyprexa itself is not getting who effectiveness. We will reassess to see if he needs to be on both auto taper down on Zyprexa. Olanzapine 20 mg at bedtime for psychosis. Prazosin 1 mg at bedtime for PTSD. Mucinex 600 mg b.i.d. p.r.n. for cough Cepacol p.r.n. for sore throat and other PRNs per protocol 12/23/24: Did not take medication last night, did not sleep well, isolated himself in room. Encourage him to go to groups and compliant with medication as prescribed. Not much change compared to yesterday. No medication change today. Thought content focused on going home as his usual. At this current time no risky behavior. No aggressive. Not yelling. Plan Patient on 15 minute checks for safety. Admitted to [facility]. Three day notice- same parents every time he comes. Work with treatment team to do collateral and aftercare appointments. We will consider to start ADHD medication-Adderall if he agreed to stay longer for medication management. However, due to psychotic behavior, we will not consider to start on stimulant as it may make psychotic symptoms worse Patient educated on: medication risk/benefits and therapeutic strategies Informed Consent: further education needed Reason for continued inpatient stay Substantial Risk for: med/psych decompensation Time Spent With Patient Time: Total time managing care of this patient today ____ minutes.
[2024-12-23 20:00] VITALS: BP 128/68; PULSE 86; RESP 16; TEMP 36.8; O2SAT 99
[2024-12-24 07:00] VITALS: BMI 23.7
[2024-12-24 08:00] VITALS: BP 106/55; PULSE 65; RESP 18; TEMP 36.8; O2SAT 99
--- NOTE | 2024-12-24 09:41 | HO.PSYCHPN ---
Subjective Subjective Date of Service: 12/24/24 Reason For Visit: Schizoprenic /psychosis Interim History: Met with patient; discussed with team Patient difficult with which to engage, denies all psychiatric symptoms and just says he wants to go home. Initially patient did not want to talk about exacerbation of psychotic symptoms but then said that the reason this happened was because he has been abusing cough syrup which he says he has been doing off and on for quite sometime. Loss Prevention Guard explained that this is concerning given his recently frequent hospitalizations and that current treatment plan, including not addressing his cough syrup abuse, does not seem to be a sustainable plan. Patient however continues to insist on discharging when 3 day notice is due. Loss Prevention Guard discussed team's concern and consideration of petition the court for several commitment. Mental Status Exam Mental Status Exam Narrative: Patient is alert and oriented; behavior is superficially cooperative, otherwise guarded; calm patient is not in distress; dressed in hospital attire with adequate hygiene; mood is described as I am ok and affect incongruent, anxious; eye contact appropriate; Speech is normal rate, volume and prosody and not pressured; no psychomotor agitation/retardation present; thought process is goal directed but concrete; not treatment oriented. Thought content is on wanting to go home; no delusional ideation expressed; denies any SI/SIB/HI. Denies AH but seems internally preoccupied at times. Patient's insight and judgment impaired Diagnostics Vital Signs (24Hr): Vital Signs - 24 hr 12/23/24 20:00 12/24/24 08:00 Temperature 98.2 F 98.2 F Pulse Rate 86 65 Respiratory Rate 16 18 Blood Pressure 128/68 106/55 L Pulse Oximetry 99 99 Oxygen Delivery Method Room Air Room Air BMI result Body Mass Index 23.4 Labs 12/20/24 13:39 12/20/24 13:39 Medications Medications Current Medications Acetaminophen (Acetaminophen 325 Mg Tablet) 650 mg PO Q6H PRN PRN Reason: Headache/Pain, Scale 1-10 Last Admin: 12/22/24 14:34 Dose: 650 mg Al Hydroxide/Mg Hydroxide (Magnesium Hydrox/Alum Hydrox 30 Ml Oral.Susp) 30 ml PO Q6H PRN PRN Reason: Heartburn/Nausea Amoxicillin/Clavulanate Potassium (Amoxicillin/Potassium Clav 875 Mg Tablet) 875 mg PO BID MARINA Stop: 12/26/24 23:59 Last Admin: 12/24/24 08:52 Dose: 875 mg Benzocaine (Throat Lozenge, Medicated Lozenge) 1 lozenge MUCOUS MEM Q2H PRN PRN Reason: Sore Throat Guaifenesin/Dextromethorphan (Guaifenesin Dm 600/30 1 Tab Tab.Er.12h) 1 tab PO BID PRN PRN Reason: Cough Last Admin: 12/22/24 14:34 Dose: 1 tab Haloperidol (Haloperidol 5 Mg Tablet) 5 mg PO BID MARINA Last Admin: 12/24/24 08:52 Dose: 5 mg Haloperidol (Haloperidol 5 Mg Tablet) 5 mg PO Q4H PRN PRN Reason: psychosis, agitation Hydroxyzine HCl (Hydroxyzine Hcl 25 Mg Tablet) 25 mg PO Q6H PRN PRN Reason: Anxiety Magnesium Hydroxide (Milk Of Magnesia 30 Ml Oral.Susp) 30 ml PO DAILY PRN PRN Reason: Constipation Nicotine Polacrilex (Nicotine Polacrilex 2 Mg Gum) 4 mg BUCCAL Q2H PRN PRN Reason: Nicotine Cravings Last Admin: 12/23/24 15:35 Dose: 4 mg Olanzapine (Olanzapine 10 Mg Tablet) 20 mg PO BEDTIME MARINA Last Admin: 12/23/24 20:53 Dose: 20 mg Prazosin HCl (Prazosin Hcl 1 Mg Capsule) 1 mg PO BEDTIME MARINA; Protocol Last Admin: 12/23/24 20:52 Dose: 1 mg Trazodone HCl (Trazodone Hcl 50 Mg Tablet) 50 mg PO BEDTIME MARINA Last Admin: 12/23/24 20:53 Dose: 50 mg Allergies Allergies Allergy/AdvReac Type Severity Reaction Status Date / Time lactase (From Dairy Aid) AdvReac Rash Verified 12/20/24 11:54 Pork/Porcine Containing AdvReac Nausea Verified 12/20/24 11:54 Products Assessment & Plan Assessment & Plan (1) Schizophrenia in partial remission with history of multiple episodes: Status: Acute Code(s): F20.9 - Schizophrenia, unspecified (2) PTSD (post-traumatic stress disorder): Status: Acute Code(s): F43.10 - Post-traumatic stress disorder, unspecified Plan HPI: Pt was BIBA due to concerns of paranoia and psychosis. Patient's mother called 911 due to concerns of medications not working. Mom called 911 after she found pt outside screaming... he thought I was . . Pt was nonverbal despite feature writer attempts to engage him. He appeared to be nervous and paranoid, looking around the room and tensing up his body urine care team assessment. History of PTSD, schizophrenic, paranoid. Met with patient at 1915 in OT room. C/C I do not know why I am here . Reports that he has been taking medications. But I been cough for about a week, and I was for like 3 days before coming in here . Patient denies paranoid thoughts at the beginning, but admit that he feels paranoid, but not able to disclose for more details. He denies suicidal thoughts, denies SIB/HI/AVH. Sleep is I have not slept for 3 days , been eating. However he does not like hospital food, and usually he refused he and meals offered. Mood is a Wanna go home . Denies legal status. Denies substance use. Formulation/clinical reasoning: This is his 5th admission to [facility], immediately signed a 3 days every time when he admitted, not agree with medication change, not treatment oriented, relapsed mentally after discharge. He also signed a 3 day notice. Wanted to be on Adderall for ADHD. Question if compliant with medication after discharge. Question if medication currently is working. He appeared to be paranoid, pre internal occupied. Given information, patient should be benefit from restrictive environment for medication change and adjustment, and refer to outpatient services. Hospital course: 12/22/24: Continue with antibiotic twice a day for infection/coughing Start Haldol 5 mg twice a day for psychosis. This is his 2nd at on antipsychotic medication as Zyprexa itself is not getting who effectiveness. We will reassess to see if he needs to be on both auto taper down on Zyprexa. Olanzapine 20 mg at bedtime for psychosis. Prazosin 1 mg at bedtime for PTSD. Mucinex 600 mg b.i.d. p.r.n. for cough Cepacol p.r.n. for sore throat and other PRNs per protocol 12/23/24: Did not take medication last night, did not sleep well, isolated himself in room. Encourage him to go to groups and compliant with medication as prescribed. Not much change compared to yesterday. No medication change today. Thought content focused on going home as his usual. At this current time no risky behavior. No aggressive. Not yelling. 12/24 Patient difficult with which to engage, denies all psychiatric symptoms and just says he wants to go home. Initially patient did not want to talk about exacerbation of psychotic symptoms but then said that the reason this happened was because he has been abusing cough syrup which he says he has been doing off and on for quite sometime. Loss Prevention Guard explained that this is concerning given his recently frequent hospitalizations and that current treatment plan, including not addressing his cough syrup abuse, does not seem to be a sustainable plan. Patient however continues to insist on discharging when 3 day notice is due. Loss Prevention Guard discussed team's concern and consideration of petition the court for several commitment. Plan Three day notice Patient on 15 minute checks for safety. Admitted to [facility]. Three day notice- sameevery time he comes. Work with treatment team to do collateral and aftercare appointments. We will consider to start ADHD medication-Adderall if he agreed to stay longer for medication management. However, due to psychotic behavior, we will not consider to start on stimulant as it may make psychotic symptoms worse Patient educated on: diagnosis, medication risk/benefits, substance abuse and therapeutic strategies Informed Consent: understands, does not understand and further education needed Reason for continued inpatient stay Substantial Risk for: inability to function Time Spent With Patient Time: Total time managing care of this patient today ____ minutes.
[2024-12-24 20:00] VITALS: BP 133/75; PULSE 80; RESP 16; TEMP 36.9; O2SAT 100
[2024-12-24 21:02] VITALS: BP 133/75
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
--- NOTE | 2024-12-25 16:31 | PM.EVENT ---
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 Diagnosis of schizoaffective disorder with positive sx, and numerous admissions related to AH and VH and delusions. Dextromethorphan use likely worsening these sx. Notes state that when he is taking antipsychotics, sx are well managed, currently not taking medications and empty bottles of cough syrup found in his room. Treatment for this use disorder (aside from abstaining) focuses on addressing psychiatric sx that are often accompanied by high doses of dextromethorphan--paranoia, delusions, hallucinations. Withdrawal sx (if any) may include irritability, low motivation, hypertension, poor sleep. Time Spent With Patient Time: Total time managing care of this patient today ____ minutes.
[2024-12-25 20:00] VITALS: BP 122/67; PULSE 88; RESP 18; TEMP 36.4; O2SAT 96
[2024-12-25 20:11] VITALS: BP 122/67
[2024-12-25] MEDS: OLANZapine ODT 10 MG TAB.RAPDIS TRANSLINGU (20:11)
[2024-12-26 08:00] VITALS: BP 117/56; PULSE 85; RESP 18; TEMP 36.8; O2SAT 97
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
[2024-12-26] MEDS: OLANZapine ODT 10 MG TAB.RAPDIS TRANSLINGU ×2 (14:53→21:55)
[2024-12-26 19:56] VITALS: BP 122/80; PULSE 120; RESP 15; TEMP 36.6; O2SAT 100
[2024-12-27 08:00] VITALS: BP 134/63; PULSE 97; RESP 17; TEMP 36.6; O2SAT 96
[2024-12-27] MEDS: OLANZapine ODT 10 MG TAB.RAPDIS TRANSLINGU (12:11)
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
[2024-12-27 20:00] VITALS: BP 127/73; PULSE 129; RESP 15; TEMP 36.6; O2SAT 97
[2024-12-28 20:00] VITALS: BP 135/73; PULSE 118; TEMP 36.9; O2SAT 99
[2024-12-28 20:26] VITALS: BP 135/73
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
--- NOTE | 2024-12-29 16:00 | MHC.RECOVRN ---
T/W met with pt. in common room to discuss recovery supports Pt continues to report that his only substance use is with dextromethorphan. He was not to engaged in conversation but did agree to a math coach referral. URIEL obtained. T/W sent referral to [facility] and updated Dr. Sanches and [facility]. ACS available as needed.
[2024-12-29 20:00] VITALS: BP 115/69; PULSE 127; RESP 16; TEMP 37.4; O2SAT 98
[2024-12-29 20:15] VITALS: BP 110/68
[2024-12-30 08:00] VITALS: BP 127/61; PULSE 88; TEMP 36.4; O2SAT 99
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
[2024-12-30 20:00] VITALS: BP 122/74; PULSE 119; RESP 16; O2SAT 99
[2024-12-30 20:14] VITALS: BP 122/74
[2024-12-31 08:05] VITALS: BP 119/66; PULSE 94; TEMP 36.3; O2SAT 99
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
== END 2024-12-31 11:10 | disposition home or self-care (01) | DRG 750 ==
LOC: HO.ED 12-21 14:32 → HO.PM5 12-22 12:26
PROVIDERS: Physician Assistant Medical; Admitting Provider Clinical Nurse Specialist Psychiatric/Mental Health, Adult; Emergency Provider Emergency Medicine; Visit Provider Psychiatry & Neurology Psychiatry
DX: F20.9 Schizophrenia, unspecified (principal); F43.10 Post-traumatic stress disorder, unspecified; Z20.822 Contact with and (suspected) exposure to COVID-19; Z87.891 Personal history of nicotine dependence; Z79.899 Other long term (current) drug therapy
CPT/HCPCS: 71046; 80053; 80143; 80179; 80307; 81003; 85025; 87635; 93005; 99285; J2426; S9485

== ENCOUNTER → 2024-12-20 12:33 | Outpatient (BNV) | payer OTHER, SELFPAY | PROVIDERS: Emergency Provider Emergency Medicine; Visit Provider Internal Medicine | DX: R00.0 Tachycardia, unspecified (principal) | CPT/HCPCS: 93010 ==

== ENCOUNTER → 2024-12-20 21:42 | Outpatient (BNV) | payer OTHER, SELFPAY | PROVIDERS: Emergency Provider Emergency Medicine; Visit Provider Specialist | DX: R05.9 Cough, unspecified (principal) | CPT/HCPCS: 71046 ==

== ENCOUNTER → 2024-12-22 12:18 | Outpatient (BNV) | payer OTHER, SELFPAY | PROVIDERS: Admitting Provider Clinical Nurse Specialist Psychiatric/Mental Health, Adult; Emergency Provider Emergency Medicine; Visit Provider Nurse Practitioner Psychiatric/Mental Health | DX: F20.0 Paranoid schizophrenia (principal); F43.11 Post-traumatic stress disorder, acute | CPT/HCPCS: 99231; 99232; 99238; 99499 ==